=== PATIENT | female | born 1975 | race Caucasian/White ===

== ENCOUNTER 2018-01-20 19:01 | Observation (INO) | payer OTHER ==
--- NOTE | 2018-01-20 19:24 | ED ---
General Adult HPI - General Chief complaint: Chest Pain Stated complaint: chest pain Time Seen by Provider: 01/20/18 19:08 Source: patient, family, RN notes reviewed Mode of arrival: ambulatory Limitations: no limitations - History of Present Illness Initial comments: 42-year-old female presents for evaluation of chest pain. Patient states that throughout the first part of the day she had intermittent palpitations, approximately 3 PM which is 4 hours prior to arrival she developed anterior chest pain. She described this as an ache. This was associated with dyspnea and diaphoresis. She also reports some mild nausea, no vomiting. No abdominal pain. Patient states pain initially began substernally, she did develop some upper mid back pain. This was dull and achy in nature. Denies any shoulder or jaw pain. Patient has past medical history of hypertension and diabetes. She is a nonsmoker. No history of coronary artery disease known. No known family history of coronary artery disease. Patient has no pain at the time my evaluation, she does report some palpitations. - Related Data Home Medications Medication Instructions Recorded Confirmed Lisinopril-Hctz 20-12.5 mg 1 tab PO BID 01/20/18 01/20/18 [Zestoretic 20-12.5] Multivitamins, Thera [Multivitamin 1 tab PO DAILY 01/20/18 01/20/18 (formulary)] glipiZIDE [Glucotrol] 10 mg PO BID 01/20/18 01/20/18 Allergies Allergy/AdvReac Type Severity Reaction Status Date / Time No Known Allergies Allergy Verified 01/20/18 19:47 Review of Systems ROS Statement: Those systems with pertinent positive or pertinent negative responses have been documented in the HPI. ROS Other: All systems not noted in ROS Statement are negative. Past Medical History Past Medical History: Diabetes Mellitus, Hypertension History of Any Multi-Drug Resistant Organisms: None Reported Past Surgical History: Breast Surgery, Section, Orthopedic Surgery, Tonsillectomy, Tubal Ligation, Uterine Ablation Past Psychological History: No Psychological Hx Reported Smoking Status: Never smoker Past Alcohol Use History: None Reported Past Drug Use History: None Reported General Exam Limitations: no limitations General appearance: alert, in no apparent distress Head exam: Present: atraumatic, normocephalic Eye exam: Present: normal appearance, PERRL, EOMI ENT exam: Present: normal exam Neck exam: Present: normal inspection. Absent: tenderness, meningismus Respiratory exam: Present: normal lung sounds bilaterally. Absent: respiratory distress, wheezes, rales Cardiovascular Exam: Present: regular rate, normal rhythm, normal heart sounds, other GI/Abdominal exam: Present: soft. Absent: distended, tenderness Extremities exam: Present: normal inspection, normal capillary refill. Absent: pedal edema, calf tenderness Neurological exam: Present: alert, oriented X3, CN II-XII intact. Absent: motor sensory deficit Psychiatric exam: Present: normal affect, normal mood Skin exam: Present: warm, dry, intact. Absent: cyanosis, diaphoretic Course Vital Signs 01/20/18 19:09 Temperature 98.4 F Pulse Rate 100 Respiratory 18 Rate Blood Pressure 174/86 O2 Sat by Pulse 98 Oximetry EKG Findings - EKG Comments: EKG Findings:: EKG: Normal sinus rhythm, ventricular rate 91, [place] interval 156, QRS duration 86, QTC 440, no ST segment elevation or depression Medical Decision Making - Medical Decision Making 42-year-old female with history of hypertension and diabetes. Patient's history is concerning, her pain is somewhat atypical. EKG nonischemic. Initial workup includes normal white blood cell count, stable hemoglobin, negative d-dimer, glucose is elevated, patient does have history diabetes. Troponin negative. Chest x-ray clear. Patient will be admitted for serial cardiac enzymes and cardiology consult. - Lab Data Result diagrams: 01/20/18 19:25 01/20/18 19:25 Lab Results 01/20/18 01/20/18 01/20/18 Range/Units 19:25 19:25 19:25 WBC 10.3 (3.8-10.6) k/uL RBC 4.80 (3.80-5.40) m/uL Hgb 13.4 (11.4-16.0) gm/dL Hct 38.2 (34.0-46.0) % MCV 79.7 L (80.0-100.0) fL MCH 28.0 (25.0-35.0) pg MCHC 35.1 (31.0-37.0) g/dL RDW 16.3 H (11.5-15.5) % Plt Count 310 (150-450) k/uL Neutrophils % 65 % Lymphocytes % 26 % Monocytes % 3 % Eosinophils % 3 % Basophils % 0 % Neutrophils # 6.7 (1.3-7.7) k/uL Lymphocytes # 2.7 (1.0-4.8) k/uL Monocytes # 0.3 (0-1.0) k/uL Eosinophils # 0.3 (0-0.7) k/uL Basophils # 0.0 (0-0.2) k/uL Poikilocytosis Slight Anisocytosis Slight PT (9.0-12.0) sec INR (<1.2) APTT (22.0-30.0) sec D-Dimer (<0.60) mg/L FEU Sodium 135 L (137-145) mmol/L Potassium 4.1 (3.5-5.1) mmol/L Chloride 93 L (98-107) mmol/L Carbon Dioxide 27 (22-30) mmol/L Anion Gap 15 mmol/L BUN 14 (7-17) mg/dL Creatinine 0.50 L (0.52-1.04) mg/dL Est GFR (CKD-EPI)AfAm >90 (>60 ml/min/1.73 sqM) Est GFR (CKD-EPI)NonAf >90 (>60 ml/min/1.73 sqM) Glucose 288 H (74-99) mg/dL Calcium 9.8 (8.4-10.2) mg/dL Magnesium 1.7 (1.6-2.3) mg/dL Total Bilirubin 0.4 (0.2-1.3) mg/dL AST 19 (14-36) U/L ALT 30 (9-52) U/L Alkaline Phosphatase 101 (38-126) U/L Total Creatine Kinase 35 (30-135) U/L CK-MB (CK-2) 0.3 (0.0-2.4) ng/mL CK-MB (CK-2) Rel Index 0.9 Troponin I <0.012 (0.000-0.034) ng/mL NT-Pro-B Natriuret Pep pg/mL Total Protein 7.1 (6.3-8.2) g/dL Albumin 4.2 (3.5-5.0) g/dL Lipase 64 (23-300) U/L 01/20/18 01/20/18 Range/Units 19:25 19:25 WBC (3.8-10.6) k/uL RBC (3.80-5.40) m/uL Hgb (11.4-16.0) gm/dL Hct (34.0-46.0) % MCV (80.0-100.0) fL MCH (25.0-35.0) pg MCHC (31.0-37.0) g/dL RDW (11.5-15.5) % Plt Count (150-450) k/uL Neutrophils % % Lymphocytes % % Monocytes % % Eosinophils % % Basophils % % Neutrophils # (1.3-7.7) k/uL Lymphocytes # (1.0-4.8) k/uL Monocytes # (0-1.0) k/uL Eosinophils # (0-0.7) k/uL Basophils # (0-0.2) k/uL Poikilocytosis Anisocytosis PT 9.7 (9.0-12.0) sec INR 1.0 (<1.2) APTT 20.7 L (22.0-30.0) sec D-Dimer <0.17 (<0.60) mg/L FEU Sodium (137-145) mmol/L Potassium (3.5-5.1) mmol/L Chloride (98-107) mmol/L Carbon Dioxide (22-30) mmol/L Anion Gap mmol/L BUN (7-17) mg/dL Creatinine (0.52-1.04) mg/dL Est GFR (CKD-EPI)AfAm (>60 ml/min/1.73 sqM) Est GFR (CKD-EPI)NonAf (>60 ml/min/1.73 sqM) Glucose (74-99) mg/dL Calcium (8.4-10.2) mg/dL Magnesium (1.6-2.3) mg/dL Total Bilirubin (0.2-1.3) mg/dL AST (14-36) U/L ALT (9-52) U/L Alkaline Phosphatase (38-126) U/L Total Creatine Kinase (30-135) U/L CK-MB (CK-2) (0.0-2.4) ng/mL CK-MB (CK-2) Rel Index Troponin I (0.000-0.034) ng/mL NT-Pro-B Natriuret Pep <11 pg/mL Total Protein (6.3-8.2) g/dL Albumin (3.5-5.0) g/dL Lipase (23-300) U/L Disposition Clinical Impression: Chest pain Disposition: ADMITTED IP TO THIS HOSP Condition: Stable Referrals: Annamaria Lackey MD [Primary Care Provider] - 1-2 days Decision to Admit Reason: Admit from EC Decision Date: 01/20/18 Decision Time: 21:10
[2018-01-20 19:47] LABS: Anisocytosis Slight; Basophils % (A) 0 %; Eosinophils # (A) 0.3 k/uL (0-0.7); Eosinophils % (A) 3 %; HCT 38.2 % (34.0-46.0); HGB 13.4 gm/dL (11.4-16.0); Lymphocytes # (A) 2.7 k/uL (1.0-4.8); Lymphocytes % (A) 26 %; MCHC 35.1 g/dL (31.0-37.0); MCV 79.7 fL (80.0-100.0); Mean Platelet Volume 6.8; Monocytes # (A) 0.3 k/uL (0-1.0); Monocytes % (A) 3 %; Neutrophils # (A) 6.7 k/uL (1.3-7.7); Neutrophils % (A) 65 %; Platelet Count 310 k/uL (150-450); Poikilocytosis Slight; RDW 16.3 % (11.5-15.5); WBC 10.3 k/uL (3.8-10.6)
--- NOTE | 2018-01-20 19:55 | XR ---
EXAMINATION TYPE: XR chest 2V DATE OF EXAM: 01/20/2018 COMPARISON: NONE HISTORY: Chest pain TECHNIQUE: Frontal and lateral views of the chest are obtained. FINDINGS: Heart and mediastinum are normal. Lungs are clear of consolidation. There is no heart fail ure. There are chest leads. Costophrenic angles are clear. IMPRESSION: Normal chest
[2018-01-20 20:05] LABS: ALT 30 U/L (9-52); AST 19 U/L (14-36); Albumin 4.2 g/dL (3.5-5.0); Alkaline Phosphatase 101 U/L (38-126); Anion Gap 15 mmol/L; Blood Urea Nitrogen 14 mg/dL (7-17); Calcium 9.8 mg/dL (8.4-10.2); Carbon Dioxide 27 mmol/L (22-30); Chloride 93 mmol/L (98-107); Glucose 288 mg/dL (74-99); Lipase 64 U/L (23-300); Magnesium 1.7 mg/dL (1.6-2.3); Potassium 4.1 mmol/L (3.5-5.1); Sodium 135 mmol/L (137-145); Total Bilirubin 0.4 mg/dL (0.2-1.3); Total Protein 7.1 g/dL (6.3-8.2)
[2018-01-20 20:15] LABS: D-Dimer <0.17 mg/L FEU (<0.60); Prothrombin Time 9.7 sec (9.0-12.0)
[2018-01-20 20:16] LABS: Creatine Kinase 35 U/L (30-135)
[2018-01-20 20:19] LABS: Partial Thromboplastin Time 20.7 sec (22.0-30.0)
[2018-01-20 20:28] LABS: Creatine Kinase MB 0.3 ng/mL (0.0-2.4); Troponin I <0.012 ng/mL (0.000-0.034)
[2018-01-20] MEDS ORDERED: NALOXONE 0.4 MG/ML 1 ML VIAL IV PRN (21:06)
[2018-01-20] MEDS ORDERED: ASPIRIN 325 MG TAB PO STA (21:08)
[2018-01-20] MEDS: LISINOPRIL-HCTZ 20-12.5 MG 1 EACH TAB PO SCH (23:59)
[2018-01-20] MEDS: glipiZIDE 10 MG TAB PO SCH (23:59)
[2018-01-21 01:50] LABS: Creatine Kinase 29 U/L (30-135)
[2018-01-21 02:03] LABS: Creatine Kinase MB 0.3 ng/mL (0.0-2.4); Troponin I <0.012 ng/mL (0.000-0.034)
[2018-01-21 04:23] VITALS: RESP 18
[2018-01-21] MEDS ORDERED: glipiZIDE 10 MG TAB PO SCH (07:30)
[2018-01-21 07:31] LABS: Glucose,Whole Blood 261 mg/dL (75-99)
[2018-01-21] MEDS ORDERED: SODIUM CHLORIDE 0.9% 1,000 ML IV SCH (08:15)
[2018-01-21 08:41] LABS: Creatine Kinase 29 U/L (30-135)
[2018-01-21 08:51] LABS: Creatine Kinase MB 0.3 ng/mL (0.0-2.4); Troponin I <0.012 ng/mL (0.000-0.034)
[2018-01-21] MEDS ORDERED: LISINOPRIL-HCTZ 20-12.5 MG 1 EACH TAB PO SCH (09:00)
[2018-01-21] MEDS: LISINOPRIL-HCTZ 20-12.5 MG 1 EACH TAB PO SCH (11:19)
[2018-01-21] MEDS: glipiZIDE 10 MG TAB PO SCH (11:19)
[2018-01-21 11:27] LABS: Glucose,Whole Blood 272 mg/dL (75-99)
[2018-01-21 11:52] VITALS: BP 181/98; PULSE 104; TEMP 98.7
--- NOTE | 2018-01-21 12:36 | ECHOS ---
STRESS ECHOCARDIOGRAM DATE OF SERVICE: 01/21/2018 INDICATIONS: Chest pain. MEDICATIONS: BASELINE HEART RATE: 90 BASELINE BLOOD PRESSURE: 167/85 MAXIMUM HEART RATE: 160 MAXIMUM BLOOD PRESSURE: 218/101 85% MPHR: 151 100% MPHR: 178 METS: 6.4 MAXIMUM STAGE REACHED: I TOTAL EXERCISE TIME: 4 minutes 45 seconds CLINICAL INFORMATION: Baseline EKG revealed normal sinus rhythm without significant ST-T changes. Patient walked on standard Enio protocol for 4 minutes 45 seconds, achieved a maximal heart rate of 160 beats per minute, which is more than 85% of predicted maximal. She developed fatigue and shortness of breath but did not have any angina or arrhythmia. EKG did not reveal any ST-segment changes to indicate ischemia. Isolated PVCs are noted. By EKG criteria, this is a negative stress test with limited exercise capacity. Baseline echo images revealed normal wall motion and wall thickening of all segments. At peak exercise, there was good augmentation of left ventricular wall motion and wall thickening of all segments suggesting that there is no evidence of stress-induced ischemia on this study. IMPRESSION: 1. By EKG criteria, this is a negative stress test with limited exercise capacity with rare PVCs, but no ischemic changes or angina. 2. Normal stress echocardiogram. MMODL / IJN: [id number] /
--- NOTE | 2018-01-21 12:39 | ECHOF ---
Referral Reason:atypical chest pain MEASUREMENTS -------- HEIGHT: 160.0 cm WEIGHT: 115.7 kg BP: 167/85 RVIDd: 3.3 cm (< 3.3) IVSd: 1.1 cm (0.6 - 1.1) LVIDd: 4.7 cm (3.9 - 5.3) LVPWd: 1.1 cm (0.6 - 1.1) IVSs: 1.6 cm LVIDs: 2.7 cm LVPWs: 1.7 cm LAESV Index (A-L): 18.13 ml/m Ao Diam: 3.1 cm (2.0 - 3.7) AV Cusp: 1.8 cm (1.5 - 2.6) LA Diam: 2.7 cm (2.7 - 3.8) EPSS: 0.5 cm MV E Bruce: 0.80 m/s MV DecT: 276 ms MV A Bruce: 0.83 m/s MV E/A Ratio: 0.96 RAP: 5.00 mmHg RVSP: 12.17 mmHg MV EF SLOPE: 81.49 mm/s (70 - 150) MV EXCURSION: 1.44 cm (> 18.000) FINDINGS -------- Sinus rhythm. This was a technically adequate study. The left ventricular size is normal. There is borderline concentric left ventricular hypertrophy. Overall left ventricular systolic function is normal with, an EF between 55 - 60 %. The right ventricle is mildly enlarged. Normal LA size by volume 22+/-6 ml/m2. The right atrium is normal in size. The aortic valve is trileaflet, and appears structurally normal. No aortic stenosis or regurgitation. The mitral valve is normal. There is trace to mild mitral regurgitation. Trace tricuspid regurgitation present. Right ventricular systolic pressure is normal at < 35 mmHg. There is no evidence of pulmonary hypertension. The pulmonic valve was not well visualized. The aortic root size is normal. IVC Not well visulized. The pericardium is normal. There is no pericardial effusion. CONCLUSIONS -------- 1. Sinus rhythm. 2. This was a technically adequate study. 3. The left ventricular size is normal. 4. There is borderline concentric left ventricular hypertrophy. 5. Overall left ventricular systolic function is normal with, an EF between 55 - 60 %. 6. The right ventricle is mildly enlarged. 7. Normal LA size by volume 22+/-6 ml/m2. 8. The aortic valve is trileaflet, and appears structurally normal. No aortic stenosis or regurgitati on. 9. There is trace to mild mitral regurgitation. 10. Trace tricuspid regurgitation present. 11. Right ventricular systolic pressure is normal at < 35 mmHg. 12. There is no evidence of pulmonary hypertension. 13. The pulmonic valve was not well visualized. 14. The aortic root size is normal. 15. IVC Not well visulized. 16. There is no pericardial effusion. CORN POPPER: Sachin Valles RDCS
--- NOTE | 2018-01-21 14:03 | HP ---
HISTORY AND PHYSICAL DATE OF ADMISSION: 01/20/2018 PRESENT COMPLAINT: Palpitation. HISTORY OF PRESENTING COMPLAINT: A very pleasant 42-year-old patient of Dr. Annamaria Lackey. Chronic stable medical conditions include asthma, diabetes, hypertension. Yesterday in the morning she just had some palpitations and decided to just let it go. Had a good lunch, still was not feeling right and decided to go and take a walk in the gym. Did 1 round, continued to feel unwell and more palpitations and decided to come in here. Patient normally has a cup of coffee in the morning. No excessive caffeine intake. No cardiac history. EKG showed sinus rhythm presentation. Patient is rather active otherwise. Denies any use of recreational drugs. REVIEW OF SYSTEMS: CONSTITUTIONAL: None. HEENT none. RESPIRATORY: None. CARDIOVASCULAR: As above. GASTROINTESTINAL: None. GENITOURINARY: None. MUSCULOSKELETAL: None. DERMATOLOGICAL: None. HEMATOLOGIC: None. LYMPHATIC: None. PSYCHIATRY: None. NEUROLOGICAL: None. PAST MEDICAL HISTORY: Asthma, diabetes mellitus type 2, hypertension. PAST SURGICAL HISTORY: Breast surgery, , cholecystectomy, tonsillectomy, tubal ligation, uterine ablation, 2 wrist surgeries, 2 removed. SOCIAL HISTORY: Does not smoke or drink alcohol. Lives with her fiance. Works at [employer]. FAMILY HISTORY: Asthma and alcohol. HOME MEDICATIONS: 1. Glucotrol 10 mg b.i.d. 2. Multivitamin 1 tablet p.o. daily. 3. Zestoretic 20/12.5 one tablet p.o. b.i.d. ALLERGIES: None. PHYSICAL EXAMINATION: Temperature 97.9, pulse 83, respiration 18, blood pressure 123/81, pulse ox 95% on room appearance: GENERAL APPEARANCE: Well built, BMI 45.2, lying in bed, comfortable. EYES: Pupils equal, conjunctivae normal. HEENT: External appearance of ears and nose normal. Oral cavity normal. NECK: JVD not raised. Mass not palpable. Respiratory effort normal. LUNGS: Fair entry. CARDIOVASCULAR: First and second sounds are normal. No edema. ABDOMEN: Soft, nontender. Liver and spleen not palpable. LYMPHATIC: No lymph node palpable. PSYCHIATRY: Alert and oriented x3. Mood and affect normal. NEUROLOGICAL: Pupils equal, cranial nerves grossly intact. Power and sensation grossly intact. INVESTIGATIONS: White count 10.3, hemoglobin 13.4, potassium 4.1, BUN 14, creatinine 0.50. Accu-Cheks noted. Troponin times 3 negative. EKG normal sinus rhythm. ASSESSMENT: 1. This patient presented with episodes of palpitation, found to have sinus rhythm, occasional premature ventricular contractions. Patient's cardiac risk factors include diabetes, hypertension, and obesity. 2. Intermittent asthma controlled. 3. Diabetes mellitus type 2 on oral hypoglycemic. 4. Essential hypertension. 5. Morbid obesity, body mass index of 45.2. PLAN: Home medications are resumed. Cardiology was consulted who ordered a stress test stress test. Care was discussed with the patient. Will have dietitian see the patient for weight loss measures. MMODL / IJN: [id number] /
[2018-01-21 14:16] LABS: Hemoglobin A1C 10.5 % (4.0-6.0)
--- NOTE | 2018-01-21 20:39 | CONS ---
CONSULTATION This is a 42-year-old obese lady who has been admitted to the hospital with an episode of what she describes as a discomfort in her chest. The pain appears to be kind of diffuse all over, but she focuses more on the left lateral aspect. She is obese and has type 2 diabetes mellitus and hypertensive cardiovascular disease. She is not very active physically. She is not a smoker. Denies any alcohol use. After arrival to the hospital, she has not had any further chest discomfort. She is actually resting comfortably at the time of my evaluation, and her troponin profile is normal. She also complained of some diaphoresis and shortness of breath when she had the episode, but these symptoms have also resolved at this time. Her coronary risk factors include obesity, hypertension, and type 2 diabetes mellitus. Patient has no family history of CAD. Does not smoke. ALLERGIES: None. MEDICATIONS: Include lisinopril hydrochlorothiazide 20/12.5 one tab daily, Glucotrol 10 mg b.i.d. and multivitamins. She is status post section, tubal ligation, uterine ablation and breast biopsy. EXAMINATION: Blood pressure is 130/80, pulse rate is 78 per minute. HEENT: Unremarkable. Fundus was not examined by me. NECK: Supple. There is no JVD. I do not hear a carotid bruit. Heart exam reveals S1, S2 heard normally. Distant heart sounds. Lungs are clear. Abdomen is distended, nontender. Lower extremities reveal diminished pulses. No edema. Central nervous system is normal. EKG revealed a sinus mechanism, no acute changes. LABORATORY DATA: Reveals unremarkable troponins. IMPRESSION: 1. Chest pain syndrome atypical but given patient's risk factors, cannot exclude coronary artery disease. Her troponins and D-dimer are normal. 2. Obesity. 3. Type 2 diabetes mellitus. RECOMMENDATIONS: I am recommending an echocardiogram and a stress echo and if these are normal, she can be discharged. I discussed with her regarding risk factor modification, weight reduction, dietary discretion and exercise issues. We will perform a stress echo today and if this is normal, she can then be discharged. Thank you very much for the consult. MMODL / IJN: [id number] /
--- NOTE | 2018-01-22 08:52 | DS ---
DISCHARGE SUMMARY DATE OF ADMISSION: 01/20/18 DATE OF DISCHARGE: January 21, 2018. FINAL DIAGNOSES: 1. Possible PVCs causing palpitation. 2. Intermittent asthma controlled. 3. Diabetes mellitus type 2 on oral hypoglycemics. 4. Essential hypertension. 5. Morbid obesity BMI 45.2. CONSULTATION: Dr. Mario Junior. HOSPITAL COURSE: This patient presented with some palpitations. 2D echo did not show any wall motion abnormality. Stress echocardiogram was unremarkable. Dr. Mario Junior okayed the patient to be discharged. EXAM: Lungs are clear. Cardiovascular 1st and 2nd sounds normal. Normal troponins were negative. DISCHARGE MEDICATIONS: 1. Zestoretic 20/12.5 one tab p.o. b.i.d. 2. Glucotrol 10 mg p.o. b.i.d. FOLLOW UP: With Dr. Mario Junior in 2 weeks. Follow up with Annamaria Lackey in 3 days. Copy to Annamaria Lackey. MMODL / IJN: [id number] /
== END 2018-01-21 14:50 | disposition home or self-care (01) ==
LOC: EC 19:01 → 3OBS 21:07
PROVIDERS: ADMIT Hospitalist; ATTEND Hospitalist
DX: R00.2 Palpitations (principal); R07.89 Other chest pain; I11.9 Hypertensive heart disease without heart failure; J45.20 Mild intermittent asthma, uncomplicated; E11.9 Type 2 diabetes mellitus without complications; M54.89 Other dorsalgia; Z68.42 Body mass index [BMI] 45.0-49.9, adult; E66.01 Morbid (severe) obesity due to excess calories; Z79.84 Long term (current) use of oral hypoglycemic drugs; Z79.899 Other long term (current) drug therapy; Z82.5 Family history of asthma and other chronic lower respiratory diseases; Z81.1 Family history of alcohol abuse and dependence
CPT/HCPCS: 99285 ×2; 96360; 96361; 36415; 93005; 93017; 93306; 93350; 85379; 83880; 80053; 82550 ×2; 82553 ×2; 83690; 83735; 84484 ×2; 85025; 85610; 85730; 83036; 71046; G0378 ×2

== ENCOUNTER 2018-11-25 09:02 | Emergency (ER) | payer OTHER ==
[2018-11-25 09:06] VITALS: RESP 16
[2018-11-25] MEDS ORDERED: ACET/COD 300 MG/30 MG STARTER PACK 6 TAB BTL PO STA (09:29)
[2018-11-25] MEDS ORDERED: KETOROLAC 60 MG/2 ML VIAL IM STA (09:29)
[2018-11-25] MEDS ORDERED: CYCLOBENZAPRINE 10MG STARTER 3 TAB BTL PO STA (09:29)
--- NOTE | 2018-11-25 09:34 | ED ---
Fall HPI - General Chief Complaint: Fall Stated Complaint: fall, back pain Time Seen by Provider: 11/25/18 09:08 Source: patient, RN notes reviewed, old records reviewed Mode of arrival: ambulatory - History of Present Illness Initial Comments: Patient is a 43-year-old female presents emergency Department with complaints of lower back pain after she fell down steps. Patient states that she fell down presently 3 steps but landed once on her lower back and buttocks. She has history of left-sided sciatica. She reports that this flared up the sciatic pain. Patient states that she has been taking Aleve since this morning. She fell around 7 AM. She denies any saddle anesthesias. Patient states that she has no abdominal pain chest pain. No head injury or loss of consciousness or neck pain. - Related Data Home Medications Medication Instructions Recorded Confirmed glipiZIDE [Glucotrol] 10 mg PO AC-BID 01/20/18 11/25/18 Lisinopril-Hctz 20-25 mg 1 tab PO DAILY 11/25/18 11/25/18 [Zestoretic 20-25] Previous Rx's Medication Instructions Recorded Acetaminophen with Codeine 1 tab PO Q6H PRN 3 Days #12 tab 11/25/18 [Tylenol w/codeine #3] Cyclobenzaprine [Flexeril] 10 mg PO TID #12 tab 11/25/18 Ibuprofen [Motrin] 600 mg PO Q6HR PRN #20 tab 11/25/18 Allergies Allergy/AdvReac Type Severity Reaction Status Date / Time No Known Allergies Allergy Verified 11/25/18 09:34 Review of Systems ROS Statement: Those systems with pertinent positive or pertinent negative responses have been documented in the HPI. ROS Other: All systems not noted in ROS Statement are negative. Past Medical History Past Medical History: Asthma, Diabetes Mellitus, Hypertension History of Any Multi-Drug Resistant Organisms: None Reported Past Surgical History: Breast Surgery, Section, Cholecystectomy, Orthopedic Surgery, Tonsillectomy, Tubal Ligation, Uterine Ablation Additional Past Surgical History / Comment(s): 2 lypomas removed, 2 c sec, 2 wrist surgeries Past Anesthesia/Blood Transfusion Reactions: No Reported Reaction Past Psychological History: No Psychological Hx Reported Smoking Status: Never smoker Past Alcohol Use History: None Reported Past Drug Use History: None Reported - Past Family History Mother Additional Family Medical History / Comment(s): ETOH Father Additional Family Medical History / Comment(s): ETOH Brother(s) Additional Family Medical History / Comment(s): DRUG ABUSE Son(s) Family Medical History: Asthma Daughter(s) Family Medical History: Asthma General Exam - General Exam Comments Initial Comments: Pleasant 43-year-old female. Alert and oriented. No acute distress. Limitations: no limitations General appearance: alert, in no apparent distress Head exam: Present: atraumatic, normocephalic, normal inspection Eye exam: Present: normal appearance, PERRL, EOMI. Absent: scleral icterus, conjunctival injection, periorbital swelling ENT exam: Present: normal exam, mucous membranes moist Respiratory exam: Present: normal lung sounds bilaterally Cardiovascular Exam: Present: regular rate, normal rhythm, normal heart sounds. Absent: systolic murmur, diastolic murmur, rubs, gallop, clicks GI/Abdominal exam: Present: soft, normal bowel sounds. Absent: distended, tenderness, guarding, rebound, rigid Extremities exam: Present: normal inspection, full ROM, normal capillary refill. Absent: tenderness, pedal edema, joint swelling, calf tenderness Back exam: Present: normal inspection, tenderness (lumbar and scaral tenderness) Neurological exam: Present: alert, oriented X3, CN II-XII intact Psychiatric exam: Present: normal affect, normal mood Skin exam: Present: warm, dry, intact, normal color. Absent: rash Course Vital Signs 11/25/18 09:04 Temperature 98.3 F Pulse Rate 92 Respiratory 16 Rate Blood Pressure 167/104 O2 Sat by Pulse 97 Oximetry Medical Decision Making - Medical Decision Making 43 old female presents ribs after slip and fall on ice. Patient complains of low back pain and tenderness. Lumbar spine and sacral and coccyx x-rays were completed. There are negative for any acute fracture. Patient does have evidence of degenerative disc disease. At this time patient's segmented plantar medicine muscle relaxers and short course of pain medicine. I discussed the Patient to follow up with offender employment specialist if symptoms continue to persist. Discussed strict return parameters. All questions answered. - Radiology Data Radiology results: report reviewed X-ray sacrum and coccyx show no acute fracture. The level degenerative disc disease and facet arthropathy. Disposition Clinical Impression: Fall, Acute back pain Disposition: HOME SELF-CARE Condition: Good Additional Instructions: Patient advised to follow-up with primary care physician. Patient should return to the emergency department if any alarming signs or symptoms occur. Prescriptions: Acetaminophen with Codeine [Tylenol w/codeine #3] 1 tab PO Q6H PRN 3 Days #12 tab PRN Reason: Pain Cyclobenzaprine [Flexeril] 10 mg PO TID #12 tab Ibuprofen [Motrin] 600 mg PO Q6HR PRN #20 tab PRN Reason: Pain Is patient prescribed a controlled substance at d/c from ED?: Yes When asked, does pt state using other controlled substances?: No If prescribed controlled substance>3 days was MAPS reviewed?: Prescribed <3 Days If opioid is for acute pain is fill amount 7 days or less?: Yes If Rx opioid, was Start Talking consent form obtained?: Yes Referrals: Annamaria Lackey MD [Primary Care Provider] - 1-2 days Time of Disposition: 10:32
--- NOTE | 2018-11-25 10:04 | XR ---
EXAM TYPE: LUMBAR SPINE X RAY SERIES COMPARISON: NONE HISTORY: Pain TECHNIQUE: 4 views are submitted. FINDINGS: Alignment is anatomic. The pedicles are intact. The transverse processes are intact. There is no s pondylolysis or spondylolisthesis. Surgical clips right upper quadrant. Hypertrophic and degenerativ e changes of the spine. Metallic density in the pelvis could be related to previous procedure. Multil evel facet arthropathy. IMPRESSION: 1. Multilevel degenerative disc disease and facet arthropathy.
--- NOTE | 2018-11-25 10:05 | XR ---
EXAMINATION TYPE: XR sacrum coccyx DATE OF EXAM: 11/25/2018 COMPARISON: NONE HISTORY: Pain Three views are submitted. Sacrum is intact. SI joints are symmetric. Coccyx appears to be intact. Visualized pelvic structures intact. Metallic densities within the pelvis likely related to previo us procedure. Degenerative change of facet arthropathy lower lumbar spine. IMPRESSION: 1. No acute fracture.
[2018-11-25 10:45] VITALS: BP 147/92; PULSE 89; TEMP 98
== END 2018-11-25 10:45 | disposition home or self-care (01) ==
LOC: EC 09:02
DX: M54.5 Low back pain (principal); M51.36 Other intervertebral disc degeneration, lumbar region; E11.9 Type 2 diabetes mellitus without complications; I10 Essential (primary) hypertension; Z90.49 Acquired absence of other specified parts of digestive tract; Z98.51 Tubal ligation status; Z98.890 Other specified postprocedural states; Z79.84 Long term (current) use of oral hypoglycemic drugs; Z79.899 Other long term (current) drug therapy; W00.1XXA Fall from stairs and steps due to ice and snow, initial encounter; Y92.89 Other specified places as the place of occurrence of the external cause
CPT/HCPCS: 72100; 72220; 96372; 99284

== ENCOUNTER 2019-09-14 16:07 | Emergency (ER) | payer OTHER ==
[2019-09-14] MEDS ORDERED: KETOROLAC 30 MG/ML 1 ML VIAL IVP STA (16:25)
[2019-09-14] MEDS ORDERED: SODIUM CHLORIDE 0.9% 1,000 ML IV STA (16:25)
--- NOTE | 2019-09-14 16:30 | ED ---
General Adult HPI - General Chief complaint: Back Pain/Injury Stated complaint: kidney stone Time Seen by Provider: 09/14/19 16:10 Source: patient, RN notes reviewed Mode of arrival: ambulatory Limitations: no limitations - History of Present Illness Initial comments: 44-year-old female presents emergency Department with chief complaint of right flank pain. Patient states started 2 days ago but worsened recently. Patient states that she's been working more and longer hours and states that she is unsure if she injured herself. Patient states that nothing makes pain feel better or worse. She did take Aleve yesterday with no relief. She denies any bowel bladder incontinence or retention. Denies any saddle anesthesias. No current diarrhea does complain of abdominal bloating mild dysuria denies any vaginal bleeding or vaginal discharge. - Related Data Home Medications Medication Instructions Recorded Confirmed glipiZIDE [Glucotrol] 10 mg PO AC-BID 01/20/18 11/25/18 Lisinopril-Hctz 20-25 mg 1 tab PO DAILY 11/25/18 11/25/18 [Zestoretic 20-25] Previous Rx's Medication Instructions Recorded Acetaminophen with Codeine 1 tab PO Q6H PRN 3 Days #12 tab 11/25/18 [Tylenol w/codeine #3] Cyclobenzaprine [Flexeril] 10 mg PO TID #12 tab 11/25/18 Ibuprofen [Motrin] 600 mg PO Q6HR PRN #20 tab 11/25/18 Amoxicillin/Potassium Clav 1 tab PO Q12HR #20 tab 09/14/19 [Augmentin 875-125 Tablet] Ibuprofen [Motrin] 600 mg PO Q8HR PRN #30 tab 09/14/19 Allergies Allergy/AdvReac Type Severity Reaction Status Date / Time No Known Allergies Allergy Verified 09/14/19 16:17 Review of Systems ROS Statement: Those systems with pertinent positive or pertinent negative responses have been documented in the HPI. ROS Other: All systems not noted in ROS Statement are negative. Past Medical History Past Medical History: Asthma, Diabetes Mellitus, Hypertension History of Any Multi-Drug Resistant Organisms: None Reported Past Surgical History: Breast Surgery, Section, Cholecystectomy, Orthopedic Surgery, Tonsillectomy, Tubal Ligation, Uterine Ablation Additional Past Surgical History / Comment(s): 2 lypomas removed, 2 c sec, 2 wrist surgeries Past Anesthesia/Blood Transfusion Reactions: No Reported Reaction Past Psychological History: No Psychological Hx Reported Smoking Status: Never smoker Past Alcohol Use History: None Reported Past Drug Use History: None Reported - Past Family History Mother Additional Family Medical History / Comment(s): ETOH Father Additional Family Medical History / Comment(s): ETOH Brother(s) Additional Family Medical History / Comment(s): DRUG ABUSE Son(s) Family Medical History: Asthma Daughter(s) Family Medical History: Asthma General Exam Limitations: no limitations General appearance: alert, in no apparent distress Head exam: Present: atraumatic, normocephalic, normal inspection Eye exam: Present: normal appearance, PERRL, EOMI. Absent: scleral icterus, conjunctival injection, periorbital swelling ENT exam: Present: normal exam, mucous membranes moist Neck exam: Present: normal inspection, full ROM. Absent: tenderness, meningismus, lymphadenopathy Respiratory exam: Present: normal lung sounds bilaterally. Absent: respiratory distress, wheezes, rales, rhonchi, stridor Cardiovascular Exam: Present: regular rate, normal rhythm, normal heart sounds. Absent: systolic murmur, diastolic murmur, rubs, gallop, clicks GI/Abdominal exam: Present: soft, normal bowel sounds. Absent: distended, tenderness, guarding, rebound, rigid Back exam: Present: full ROM, tenderness, CVA tenderness (R), paraspinal tenderness. Absent: CVA tenderness (L), vertebral tenderness Neurological exam: Present: alert, oriented X3, CN II-XII intact Skin exam: Present: warm, dry, intact, normal color. Absent: rash Course Vital Signs 09/14/19 16:15 Temperature 98.2 F Pulse Rate 90 Respiratory 16 Rate Blood Pressure 172/109 O2 Sat by Pulse 92 L Oximetry Medical Decision Making - Medical Decision Making CAT scan shows evidence of mesenteric adenitis, colitis and there is; that show mild hyperglycemia patient is a known diabetic. Urinalysis unremarkable patient has recently or mass in the left adrenal gland which is known to the patient she is scheduled follow-up. Patient also has a nonobstructing kidney stone on the right. Patient be discharged on antibiotics, pain control return parameters were discussed. - Lab Data Result diagrams: 09/14/19 16:44 09/14/19 16:44 Lab Results 09/14/19 09/14/19 09/14/19 Range/Units 16:44 16:44 16:44 WBC 10.4 (3.8-10.6) k/uL RBC 4.96 (3.80-5.40) m/uL Hgb 13.8 (11.4-16.0) gm/dL Hct 40.8 (34.0-46.0) % MCV 82.3 (80.0-100.0) fL MCH 27.7 (25.0-35.0) pg MCHC 33.7 (31.0-37.0) g/dL RDW 14.7 (11.5-15.5) % Plt Count 378 (150-450) k/uL Neutrophils % 69 % Lymphocytes % 22 % Monocytes % 4 % Eosinophils % 3 % Basophils % 2 % Neutrophils # 7.2 (1.3-7.7) k/uL Lymphocytes # 2.3 (1.0-4.8) k/uL Monocytes # 0.4 (0-1.0) k/uL Eosinophils # 0.3 (0-0.7) k/uL Basophils # 0.2 (0-0.2) k/uL Sodium 137 (137-145) mmol/L Potassium 3.9 (3.5-5.1) mmol/L Chloride 98 (98-107) mmol/L Carbon Dioxide 28 (22-30) mmol/L Anion Gap 11 mmol/L BUN 14 (7-17) mg/dL Creatinine 0.43 L (0.52-1.04) mg/dL Est GFR (CKD-EPI)AfAm >90 (>60 ml/min/1.73 sqM) Est GFR (CKD-EPI)NonAf >90 (>60 ml/min/1.73 sqM) Glucose 229 H (74-99) mg/dL Calcium 9.7 (8.4-10.2) mg/dL Total Bilirubin 0.5 (0.2-1.3) mg/dL AST 22 (14-36) U/L ALT 18 (9-52) U/L Alkaline Phosphatase 82 (38-126) U/L Total Protein 7.6 (6.3-8.2) g/dL Albumin 4.4 (3.5-5.0) g/dL Amylase <30 L (30-110) U/L Lipase 44 (23-300) U/L Urine Color Yellow Urine Appearance Clear (Clear) Urine pH 5.5 (5.0-8.0) Ur Specific [place] 1.019 (1.001-1.035) Urine Protein Negative (Negative) Urine Glucose (UA) 2+ H (Negative) Urine Ketones Negative (Negative) Urine Blood Negative (Negative) Urine Nitrite Negative (Negative) Urine Bilirubin Negative (Negative) Urine Urobilinogen <2.0 (<2.0) mg/dL Ur Leukocyte Esterase Negative (Negative) Disposition Clinical Impression: Colitis, Right sided abdominal pain, Mesenteric adenitis, Kidney calculus Disposition: HOME SELF-CARE Condition: Stable Instructions (If sedation given, give patient instructions): Colitis (ED) Additional Instructions: Please return to the Emergency Department if symptoms worsen or any other concerns. Prescriptions: Amoxicillin/Potassium Clav [Augmentin 875-125 Tablet] 1 tab PO Q12HR #20 tab Ibuprofen [Motrin] 600 mg PO Q8HR PRN #30 tab PRN Reason: Pain Is patient prescribed a controlled substance at d/c from ED?: No Referrals: Annamaria Lackey MD [Primary Care Provider] - 1-2 days Time of Disposition: 18:00
[2019-09-14 16:55] LABS: Basophils # (A) 0.2 k/uL (0-0.2); Basophils % (A) 2 %; Eosinophils # (A) 0.3 k/uL (0-0.7); Eosinophils % (A) 3 %; HCT 40.8 % (34.0-46.0); HGB 13.8 gm/dL (11.4-16.0); Lymphocytes # (A) 2.3 k/uL (1.0-4.8); Lymphocytes % (A) 22 %; MCH 27.7 pg (25.0-35.0); MCHC 33.7 g/dL (31.0-37.0); MCV 82.3 fL (80.0-100.0); Mean Platelet Volume 6.4; Monocytes # (A) 0.4 k/uL (0-1.0); Monocytes % (A) 4 %; Neutrophils # (A) 7.2 k/uL (1.3-7.7); Neutrophils % (A) 69 %; Platelet Count 378 k/uL (150-450); RBC 4.96 m/uL (3.80-5.40); RDW 14.7 % (11.5-15.5); WBC 10.4 k/uL (3.8-10.6)
[2019-09-14 16:56] LABS: Appearance,Urine Clear (Clear); Bilirubin,Urine Negative (Negative); Blood,Urine Negative (Negative); Color,Urine Yellow; Glucose,Urine (UA) 2+ (Negative); Ketones,Urine Negative (Negative); Leukocyte Esterase,Urine Negative (Negative); Nitrite,Urine Negative (Negative); PH, Urine 5.5 (5.0-8.0); Protein,Urine Negative (Negative); Specific Gravity,Urine 1.019 (1.001-1.035); Urobilinogen,Urine <2.0 mg/dL (<2.0)
[2019-09-14 17:03] LABS: ALT 18 U/L (9-52); AST 22 U/L (14-36); African American GFR (CKD) >90 (>60 ml/min/1.73 sqM); Albumin 4.4 g/dL (3.5-5.0); Alkaline Phosphatase 82 U/L (38-126); Amylase <30 U/L (30-110); Anion Gap 11 mmol/L; Blood Urea Nitrogen 14 mg/dL (7-17); Calcium 9.7 mg/dL (8.4-10.2); Carbon Dioxide 28 mmol/L (22-30); Chloride 98 mmol/L (98-107); Glucose 229 mg/dL (74-99); Non-African American GFR(CKD) >90 (>60 ml/min/1.73 sqM); Potassium 3.9 mmol/L (3.5-5.1); Sodium 137 mmol/L (137-145); Total Bilirubin 0.5 mg/dL (0.2-1.3); Total Protein 7.6 g/dL (6.3-8.2)
--- NOTE | 2019-09-14 17:41 | CT ---
EXAMINATION TYPE: CT abdomen pelvis w con DATE OF EXAM: 09/14/2019 COMPARISON: NONE HISTORY: 44-year-old female right-sided flank pain. Known adrenal mass Left side. TECHNIQUE: Contiguous axial scanning of the abdomen and pelvis following administration of 100 ml Iso kateryna 300 IV contrast. Delayed images through the kidneys and coronal/sagittal reconstructions perform ed. CT DLP: 2312.4 mGycm Automated exposure control for dose reduction was used. FINDINGS: Heart upper limits of normal size without pericardial effusion. Strandy atelectasis or scarring at th e right base. No pleural effusion. Liver enlarged measuring 22.4 cm. Suspect underlying fatty infiltration. No focal liver lesion or gisselle iary ductal dilatation. Portal venous system is patent. Cholecystectomy clips. 3.0 x 2.1 cm left adrenal nodule shows homogeneous low-density. Indeterminate attenuation (19 Hounsfi eld units) on postcontrast exam. Correlate for any known diagnosis. Right adrenal gland, left kidney, and pancreas appear within normal limits. Spleen enlarged at 15.3 cm. Punctate 2 mm nonobstructive right renal calculus. No hydronephrosis on either side. Mild generalized anasarca change. No dilated small bowel, free fluid, or free air. A few prominent retroperitoneal lymph nodes measure up to 7 mm. Additional borderline sized mesenteri c lymph nodes, most numerous in the right lower quadrant measuring up to 9 mm, for example, coronal i mage 51. Portions of the normal appendix are visualized. There may be mild circumference wall thickening along the ascending colon. Mild stool burden. No pericolic inflammatory change. Bladder is nondistended. Uterus anteverted. Bilaterally Essures are present. Both ovaries are visuali zed. No abnormal fluid collection in the pelvis or pelvic lymphadenopathy. Bones: Facet arthropathy mid to lower lumbar spine. Trace grade 1 retrolisthesis at L3-L4. Degenerati ve disc disease L5-S1. IMPRESSION: 1. PUNCTATE 2 MM NONOBSTRUCTIVE RIGHT RENAL CALCULUS. NO HYDRONEPHROSIS. 2. SCATTERED PROMINENT MESENTERIC LYMPH NODES MEASURING UP TO 9 MM IN THE RIGHT LOWER QUADRANT. FINDI NGS PROBABLY REACTIVE/POST INFLAMMATORY. CORRELATE FOR POSSIBLE MESENTERIC ADENITIS. 3. THERE MAY BE MILD CIRCUMFERENTIAL WALL THICKENING ALONG THE ASCENDING COLON WELL THAT COULD REP RESENT A CONCURRENT MILD COLITIS. 4. HEPATOSPLENOMEGALY (LIVER 22.4 CM AND SPLEEN 15.3 CM). UNDERLYING HEPATIC STEATOSIS. 5. LEFT ADRENAL MASS/NODULE MEASURES 3.0 CM. CORRELATE FOR ANY KNOWN DIAGNOSIS.
[2019-09-14] MEDS ORDERED: ACET/COD 300 MG/30 MG STARTER PACK 6 TAB BTL PO STA (18:01)
[2019-09-14 18:20] VITALS: BP 159/87; PULSE 88; RESP 18; TEMP 98
== END 2019-09-14 18:18 | disposition home or self-care (01) ==
LOC: EC 16:07
DX: N20.0 Calculus of kidney (principal); I88.0 Nonspecific mesenteric lymphadenitis; K52.9 Noninfective gastroenteritis and colitis, unspecified; E11.65 Type 2 diabetes mellitus with hyperglycemia; I10 Essential (primary) hypertension; Z79.84 Long term (current) use of oral hypoglycemic drugs; Z79.899 Other long term (current) drug therapy; Z90.49 Acquired absence of other specified parts of digestive tract
CPT/HCPCS: 36415; 80053; 82150; 83690; 85025; 81003; 74177; 99284; 96374; 96361 ×2; J1885; Q9967

== ENCOUNTER → 2020-01-07 | Outpatient (CLI) | payer OTHER ==
[2020-01-07 17:47] LABS: African American GFR (CKD) 128.5 (60.0-200.0); Albumin 4.4 g/dL (3.80-4.90); Albumin/Globulin Ratio 1.91 (1.60-3.17); Anion Gap 8.1 mmol/L (4.00-12.00); BUN/Creat Ratio 31.67 Ratio (12.00-20.00); Calcium 9.3 mg/dL (8.7-10.3); Carbon Dioxide 29.9 mmol/L (21.6-31.8); Chol/HDL Ratio 5.37; Globulin 2.3 g/dL (1.6-3.3); Non-African American GFR(CKD) 110.9 (60.0-200.0); Potassium 4.5 mmol/L (3.5-5.5); Total Bilirubin 0.4 mg/dL (0.2-1.2); Total Protein 6.7 g/dL (6.2-8.2)
[2020-01-07 19:02] LABS: Hemoglobin A1C 8.3 % (4.0-6.0)
== END | disposition home or self-care (01) ==
LOC: LABWHC1 08:38
DX: E78.5 Hyperlipidemia, unspecified (principal); E11.65 Type 2 diabetes mellitus with hyperglycemia; I10 Essential (primary) hypertension; R19.09 Other intra-abdominal and pelvic swelling, mass and lump
CPT/HCPCS: 36415; 80053; 80061; 82384; 82530; 82626; 83036; 83721; 83835

== ENCOUNTER 2020-08-10 07:59 | Emergency (ER) | payer OTHER ==
[2020-08-10 08:08] VITALS: PULSE 81; TEMP 98
[2020-08-10] MEDS ORDERED: diphenhydrAMINE 50 MG/ML 1 ML VIAL IVP STA (08:16)
[2020-08-10] MEDS ORDERED: METOCLOPRAMIDE 5 MG/ML 2 ML VIAL IVP STA (08:16)
[2020-08-10] MEDS ORDERED: SODIUM CHLORIDE 0.9% 500 ML 500 ML IV STA (08:16)
[2020-08-10] MEDS ORDERED: SODIUM CHLORIDE 0.9% 1,000 ML IV STA (08:16)
--- NOTE | 2020-08-10 08:19 | ED ---
General Adult HPI - General Chief complaint: Fall Stated complaint: vomiting,nausea,fall abd injury 2days ago Time Seen by Provider: 08/10/20 08:10 Source: patient, RN notes reviewed Mode of arrival: ambulatory Limitations: no limitations - History of Present Illness Initial comments: This is a 45-year-old female presents emergency Department chief complaint of nausea vomiting abdominal discomfort. Patient states that she fell 2 days ago going down her steps of her deck. Patient states that she had some abdominal pain and felt okay. Patient states yesterday she developed a systemic, nausea and vomiting. She states she still very nauseated. She has chronic nausea from her Korlym. 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 Patient states she's had prior cholecystectomy, lipoma removal and section. Patient states that she has some mid to lower abdominal pain no dysuria no diarrhea no constipation. - Related Data Home Medications Medication Instructions Recorded Confirmed Atorvastatin Calcium [Lipitor] 40 mg PO DAILY 08/10/20 08/10/20 Insulin Glargine,Hum.rec.anlog 36 unit SQ DAILY 08/10/20 08/10/20 [Basaglar Kwikpen U-100] Korlym 300mg Tabs 1,200 mg PO DAILY 08/10/20 08/10/20 Lisinopril-Hctz 20-12.5 mg 1 tab PO BID 08/10/20 08/10/20 [Zestoretic 20-12.5] Naproxen Sodium [Aleve] 440 mg PO DAILY PRN 08/10/20 08/10/20 Omeprazole 20 mg PO DAILY 08/10/20 08/10/20 Ondansetron HCl [Zofran] 4 mg PO Q6HR PRN 08/10/20 08/10/20 Pioglitazone HCl 15 mg PO DAILY 08/10/20 08/10/20 Polyethylene Glycol 3350 [Miralax] 17 gm PO DAILY PRN 08/10/20 08/10/20 Semaglutide [Ozempic] 1 mg SQ MO 08/10/20 08/10/20 Spironolactone 50 mg PO DAILY 08/10/20 08/10/20 Previous Rx's Medication Instructions Recorded Acetaminophen with Codeine 1 tab PO Q6H PRN 3 Days #12 tab 11/25/18 [Tylenol w/codeine #3] Allergies Allergy/AdvReac Type Severity Reaction Status Date / Time No Known Allergies Allergy Verified 08/10/20 09:35 Review of Systems ROS Statement: Those systems with pertinent positive or pertinent negative responses have been documented in the HPI. ROS Other: All systems not noted in ROS Statement are negative. Past Medical History Past Medical History: Asthma, Diabetes Mellitus, Hypertension Additional Past Medical History / Comment(s): cushings History of Any Multi-Drug Resistant Organisms: None Reported Past Surgical History: Breast Surgery, Section, Cholecystectomy, Orth opedic Surgery, Tonsillectomy, Tubal Ligation, Uterine Ablation Additional Past Surgical History / Comment(s): 2 lypomas removed, 2 c sec, 2 wrist surgeries Past Anesthesia/Blood Transfusion Reactions: No Reported Reaction Past Psychological History: No Psychological Hx Reported Smoking Status: Never smoker Past Alcohol Use History: None Reported Past Drug Use History: None Reported - Past Family History Mother Additional Family Medical History / Comment(s): ETOH Father Additional Family Medical History / Comment(s): ETOH Brother(s) Additional Family Medical History / Comment(s): DRUG ABUSE Son(s) Family Medical History: Asthma Daughter(s) Family Medical History: Asthma General Exam Limitations: no limitations General appearance: alert, in no apparent distress Head exam: Present: atraumatic, normocephalic, normal inspection Eye exam: Present: normal appearance, PERRL, EOMI. Absent: scleral icterus, conjunctival injection, periorbital swelling ENT exam: Present: normal exam, normal oropharynx, mucous membranes moist Neck exam: Present: normal inspection, full ROM. Absent: tenderness, men ingismus, lymphadenopathy Respiratory exam: Present: normal lung sounds bilaterally. Absent: respiratory distress, wheezes, rales, rhonchi, stridor Cardiovascular Exam: Present: regular rate, normal rhythm, normal heart sounds. Absent: systolic murmur, diastolic murmur, rubs, gallop, clicks GI/Abdominal exam: Present: soft, tenderness (Mild to moderate mid abdominal tenderness), normal bowel sounds. Absent: distended, guarding, rebound, rigid Back exam: Absent: CVA tenderness (R), CVA tenderness (L) Neurological exam: Present: alert, oriented X3 Skin exam: Present: warm, dry, intact, normal color. Absent: rash Course Vital Signs 08/10/20 08:03 Temperature 98.0 F Pulse Rate 81 Respiratory 16 Rate Blood Pressure 170/102 O2 Sat by Pulse 95 Oximetry EKG Findings - EKG Comments: EKG Findings:: EKG for a: 36 sinus rhythm rate of 86 NM 156 QRS 100 QT/QTC 246/294 Medical Decision Making - Medical Decision Making 45 for abdominal pain nausea vomiting. Patient labs do show mild hyperkalemia was replaced 40 mEq kdur. Patient is improved after Benadryl and Reglan. Patient was hydrated. Patient be discharged in stable condition. Patient CT does show evidence of renal mass in which she states she knows about and has been evaluated for this. Patient we discharged stable condition return parameters were discussed. - Lab Data Result diagrams: 08/10/20 08:22 08/10/20 08:22 Lab Results 08/10/20 08/10/20 08/10/20 Range/Units 08:22 08:22 08:22 WBC 9.2 (3.8-10.6) k/uL RBC 4.33 (3.80-5.40) m/uL Hgb 12.2 (11.4-16.0) gm/dL Hct 37.0 (34.0-46.0) % MCV 85.4 (80.0-100.0) fL MCH 28.1 (25.0-35.0) pg MCHC 32.9 (31.0-37.0) g/dL RDW 15.7 H (11.5-15.5) % Plt Count 386 (150-450) k/uL Neutrophils % 71 % Lymphocytes % 20 % Monocytes % 4 % Eosinophils % 3 % Basophils % 0 % Neutrophils # 6.6 (1.3-7.7) k/uL Lymphocytes # 1.8 (1.0-4.8) k/uL Monocytes # 0.4 (0-1.0) k/uL Eosinophils # 0.3 (0-0.7) k/uL Basophils # 0.0 (0-0.2) k/uL Poikilocytosis Slight Sodium 141 (137-145) mmol/L Potassium 3.1 L (3.5-5.1) mmol/L Chloride 98 (98-107) mmol/L Carbon Dioxide 35 H (22-30) mmol/L Anion Gap 8 mmol/L BUN 12 (7-17) mg/dL Creatinine 0.62 (0.52-1.04) mg/dL Est GFR (CKD-EPI)AfAm >90 (>60 ml/min/1.73 sqM) Est GFR (CKD-EPI)NonAf >90 (>60 ml/min/1.73 sqM) Glucose 131 H (74-99) mg/dL Plasma Lactic Acid Damon (0.7-2.0) mmol/L Calcium 8.8 (8.4-10.2) mg/dL Total Bilirubin 0.9 (0.2-1.3) mg/dL AST 22 (14-36) U/L ALT 17 (4-34) U/L Alkaline Phosphatase 112 (38-126) U/L Troponin I (0.000-0.034) ng/mL Total Protein 6.5 (6.3-8.2) g/dL Albumin 3.8 (3.5-5.0) g/dL Lipase 63 (23-300) U/L Urine Color Yellow Urine Appearance Clear (Clear) Urine pH 6.0 (5.0-8.0) Ur Specific [place] 1.011 (1.001-1.035) Urine Protein Negative (Negative) Urine Glucose (UA) Negative (Negative) Urine Ketones Negative (Negative) Urine Blood Negative (Negative) Urine Nitrite Negative (Negative) Urine Bilirubin Negative (Negative) Urine Urobilinogen 6.0 (<2.0) mg/dL Ur Leukocyte Esterase Negative (Negative) 08/10/20 08/10/20 Range/Units 08:22 08:22 WBC (3.8-10.6) k/uL RBC (3.80-5.40) m/uL Hgb (11.4-16.0) gm/dL Hct (34.0-46.0) % MCV (80.0-100.0) fL MCH (25.0-35.0) pg MCHC (31.0-37.0) g/dL RDW (11.5-15.5) % Plt Count (150-450) k/uL Neutrophils % % Lymphocytes % % Monocytes % % Eosinophils % % Basophils % % Neutrophils # (1.3-7.7) k/uL Lymphocytes # (1.0-4.8) k/uL Monocytes # (0-1.0) k/uL Eosinophils # (0-0.7) k/uL Basophils # (0-0.2) k/uL Poikilocytosis Sodium (137-145) mmol/L Potassium (3.5-5.1) mmol/L Chloride (98-107) mmol/L Carbon Dioxide (22-30) mmol/L Anion Gap mmol/L BUN (7-17) mg/dL Creatinine (0.52-1.04) mg/dL Est GFR (CKD-EPI)AfAm (>60 ml/min/1.73 sqM) Est GFR (CKD-EPI)NonAf (>60 ml/min/1.73 sqM) Glucose (74-99) mg/dL Plasma Lactic Acid Damon 0.9 (0.7-2.0) mmol/L Calcium (8.4-10.2) mg/dL Total Bilirubin (0.2-1.3) mg/dL AST (14-36) U/L ALT (4-34) U/L Alkaline Phosphatase (38-126) U/L Troponin I <0.012 (0.000-0.034) ng/mL Total Protein (6.3-8.2) g/dL Albumin (3.5-5.0) g/dL Lipase (23-300) U/L Urine Color Urine Appearance (Clear) Urine pH (5.0-8.0) Ur Specific [place] (1.001-1.035) Urine Protein (Negative) Urine Glucose (UA) (Negative) Urine Ketones (Negative) Urine Blood (Negative) Urine Nitrite (Negative) Urine Bilirubin (Negative) Urine Urobilinogen (<2.0) mg/dL Ur Leukocyte Esterase (Negative) Disposition Clinical Impression: Fall, Abdominal pain, Nausea & vomiting Disposition: HOME SELF-CARE Condition: Stable Instructions (If sedation given, give patient instructions): Abdominal Pain (ED) Additional Instructions: Please return to the Emergency Department if symptoms worsen or any other concerns. Is patient prescribed a controlled substance at d/c from ED?: No Referrals: Annamaria Lackey MD [Primary Care Provider] - 1-2 days Time of Disposition: 09:50
[2020-08-10] MEDS ORDERED: ENALAPRILAT 1.25 MG/ML 1 ML VIAL IVP STA (08:20)
[2020-08-10 08:41] LABS: Appearance,Urine Clear (Clear); Bilirubin,Urine Negative (Negative); Blood,Urine Negative (Negative); Color,Urine Yellow; Glucose,Urine (UA) Negative (Negative); Ketones,Urine Negative (Negative); Leukocyte Esterase,Urine Negative (Negative); Nitrite,Urine Negative (Negative); Protein,Urine Negative (Negative); Specific Gravity,Urine 1.011 (1.001-1.035)
[2020-08-10 08:47] LABS: Basophils % (A) 0 %; Eosinophils # (A) 0.3 k/uL (0-0.7); Eosinophils % (A) 3 %; HGB 12.2 gm/dL (11.4-16.0); Lymphocytes # (A) 1.8 k/uL (1.0-4.8); Lymphocytes % (A) 20 %; MCH 28.1 pg (25.0-35.0); MCHC 32.9 g/dL (31.0-37.0); MCV 85.4 fL (80.0-100.0); Monocytes # (A) 0.4 k/uL (0-1.0); Monocytes % (A) 4 %; Neutrophils # (A) 6.6 k/uL (1.3-7.7); Neutrophils % (A) 71 %; Platelet Count 386 k/uL (150-450); Poikilocytosis Slight; RBC 4.33 m/uL (3.80-5.40); RDW 15.7 % (11.5-15.5); WBC 9.2 k/uL (3.8-10.6)
[2020-08-10 08:49] LABS: ALT 17 U/L (4-34); AST 22 U/L (14-36); African American GFR (CKD) >90 (>60 ml/min/1.73 sqM); Albumin 3.8 g/dL (3.5-5.0); Alkaline Phosphatase 112 U/L (38-126); Anion Gap 8 mmol/L; Blood Urea Nitrogen 12 mg/dL (7-17); Calcium 8.8 mg/dL (8.4-10.2); Carbon Dioxide 35 mmol/L (22-30); Chloride 98 mmol/L (98-107); Glucose 131 mg/dL (74-99); Non-African American GFR(CKD) >90 (>60 ml/min/1.73 sqM); Potassium 3.1 mmol/L (3.5-5.1); Sodium 141 mmol/L (137-145); Total Bilirubin 0.9 mg/dL (0.2-1.3); Total Protein 6.5 g/dL (6.3-8.2)
[2020-08-10] MEDS ORDERED: POTASSIUM CHLORIDE ER 20 MEQ TAB.ER PO STA (09:14)
--- NOTE | 2020-08-10 09:46 | CT ---
EXAMINATION TYPE: CT abdomen pelvis w con DATE OF EXAM: 08/10/2020 COMPARISON: CT abdomen pelvis 09/14/2019 HISTORY: Fall, Abd pain CT DLP: 2362.9 mGycm Automated exposure control for dose reduction was used. TECHNIQUE: Helical acquisition of images was performed from the lung bases through the pelvis. CONTRAST: Performed without Oral Contrast and with IV Contrast, patient injected with 100 mL of Isovue 300. FINDINGS: LUNG BASES: Normal. LIVER: Normal attenuation. No focal abnormality. Measures up to 20.4 cm craniocaudal, previously 22.4 cm on 09/14/2019 comparison. BILIARY SYSTEM: Status post cholecystectomy. No intrahepatic or extrahepatic biliary ductal dilatatio n. PANCREAS: Normal. SPLEEN: Normal. Measures 13.8 cm craniocaudal, previously 15.3 cm on 09/14/2019 comparison. ADRENALS: Right adrenal gland normal. Left adrenal gland nodule demonstrates interval increase in siz e measuring up to 3.6 x 3.2 cm x 3.5, previously measuring 2.1 x 3.0 cm on 09/14/2019 comparison, wit h indeterminate Hounsfield units. KIDNEYS: Nonobstructing 2 mm right nephrolithiasis. No hydronephrosis or hydroureter bilaterally. No ureteral or bladder calculi. BOWEL: No evidence of bowel obstruction or thickening. PERITONEUM: No free air is visualized. No free fluid. ADENOPATHY: No lymphadenopathy. PELVIS: Normal. Tubal ligation changes bilaterally. VASCULATURE: No abdominal aortic aneurysm. MUSCULOSKELETAL: No acute osseous normality. Degenerative changes of the spine. Degenerative changes of the hips, right greater than left. IMPRESSION: 1. No acute abdominopelvic process. 2. Increased size of indeterminate left adrenal mass measuring up to 3.6 cm, previously 3.0 cm on comparison. Additional workup with CT or MRI adrenal mass protocol is recommended. 3. Nonobstructing 2 mm right renal calculus.
[2020-08-10 10:08] VITALS: BP 169/89; RESP 18
== END 2020-08-10 10:04 | disposition home or self-care (01) ==
LOC: EC 07:59
DX: R11.2 Nausea with vomiting, unspecified (principal); R10.30 Lower abdominal pain, unspecified; E87.5 Hyperkalemia; N28.89 Other specified disorders of kidney and ureter; E11.9 Type 2 diabetes mellitus without complications; I10 Essential (primary) hypertension; Z79.4 Long term (current) use of insulin; Z79.899 Other long term (current) drug therapy; Z90.49 Acquired absence of other specified parts of digestive tract; W10.9XXA Fall (on) (from) unspecified stairs and steps, initial encounter; Y92.009 Unspecified place in unspecified non-institutional (private) residence as the place of occurrence of the external cause
CPT/HCPCS: 36415; 93005; 80053; 83605; 83690; 84484; 85025; 81003; 74177; 99284; 96374; 96375 ×2; 96361; J1200; J2765; Q9967

== ENCOUNTER → 2020-10-05 | Outpatient (CLI) | payer OTHER | END | disposition home or self-care (01) | LOC: RADMRIMAIN 17:01 | PROVIDERS: ATTEND Internal Medicine | DX: Z53.9 Procedure and treatment not carried out, unspecified reason (principal) ==

== ENCOUNTER 2021-11-27 09:30 | Emergency (ER) | payer OTHER ==
[2021-11-27] MEDS ORDERED: SODIUM CHLORIDE 0.9% 500 ML 500 ML IV STA (09:43)
[2021-11-27] MEDS ORDERED: SODIUM CHLORIDE 0.9% 1,000 ML IV STA (09:43)
[2021-11-27 09:46] VITALS: RESP 18; TEMP 98.5
[2021-11-27 10:01] LABS: Basophils % (A) 0 %; Eosinophils # (A) 0.3 k/uL (0-0.7); Eosinophils % (A) 3 %; HCT 38.9 % (34.0-46.0); HGB 13.2 gm/dL (11.4-16.0); Lymphocytes # (A) 2.8 k/uL (1.0-4.8); Lymphocytes % (A) 26 %; MCH 29.3 pg (25.0-35.0); MCHC 33.9 g/dL (31.0-37.0); MCV 86.3 fL (80.0-100.0); Monocytes # (A) 0.4 k/uL (0-1.0); Monocytes % (A) 4 %; Neutrophils # (A) 7.2 k/uL (1.3-7.7); Neutrophils % (A) 67 %; Platelet Count 218 k/uL (150-450); RBC 4.51 m/uL (3.80-5.40); WBC 10.8 k/uL (3.8-10.6)
--- NOTE | 2021-11-27 10:09 | XR ---
EXAMINATION TYPE: XR chest 2V DATE OF EXAM: 11/27/2021 COMPARISON: Chest x-ray 01/20/2018 HISTORY: Shortness of breath, cough and syncope TECHNIQUE: Frontal and lateral views of the chest are obtained. FINDINGS: Patient is rotated. There is no focal air space opacity, pleural effusion, or pneumothorax seen. The cardiac silhouette size is within normal limits. Surgical clips are present in the right upper quadrant. Right hemidiaphragm remains elevated, there is eventration change. The osseous struct ures are intact. IMPRESSION: No acute cardiopulmonary process.
[2021-11-27 10:26] LABS: African American GFR (CKD) >90 (>60 ml/min/1.73 sqM); Albumin 3.6 g/dL (3.5-5.0); Amylase <30 U/L (30-110); Anion Gap 8 mmol/L; Blood Urea Nitrogen 24 mg/dL (7-17); Calcium 8.6 mg/dL (8.4-10.2); Carbon Dioxide 27 mmol/L (22-30); Chloride 97 mmol/L (98-107); Glucose 213 mg/dL (74-99); Non-African American GFR(CKD) >90 (>60 ml/min/1.73 sqM); Potassium 3.7 mmol/L (3.5-5.1); Sodium 132 mmol/L (137-145); Total Bilirubin 0.6 mg/dL (0.2-1.3); Total Protein 5.9 g/dL (6.3-8.2)
[2021-11-27 10:28] LABS: ALT 42 U/L (4-34); AST 25 U/L (14-36); Alkaline Phosphatase 68 U/L (38-126); Lipase 47 U/L (23-300); Magnesium 1.5 mg/dL (1.6-2.3)
[2021-11-27] MEDS ORDERED: MAGNESIUM OXIDE 400 MG TAB PO STA (10:32)
[2021-11-27] MEDS ORDERED: SODIUM CHLORIDE 0.9% 50 ML IVPB ONE (11:00)
[2021-11-27] MEDS ORDERED: SOTROVIMAB (EUA) 500 MG in SODIUM CHLORIDE 0.9% 100 ML IVPB ONE (11:00)
--- NOTE | 2021-11-27 12:14 | ED ---
General Adult HPI - General Chief complaint: Weakness Stated complaint: Weakness/Covid+ Time Seen by Provider: 11/27/21 09:33 Source: patient, EMS, RN notes reviewed Mode of arrival: EMS Limitations: no limitations - History of Present Illness Initial comments: 46-year-old female presents emergency Department with chief complaint of covid 19. Patient is positive on Thursday. She states that she's been very tired, weak feeling. Patient states she had an near syncopal episodes denies any chest pain no severe shortness breath she does have a cough is productive nauseated mild GI symptoms. Patient states she has no dysuria no hematuria she is currently on steroids for adrenal gland she states she's only on prednisone though they are tapering her down. Patient offers no other complaints - Related Data Home Medications Medication Instructions Recorded Confirmed Atorvastatin Calcium [Lipitor] 40 mg PO DAILY 08/10/20 11/27/21 Lisinopril-Hctz 20-12.5 mg 1 tab PO DAILY 08/10/20 11/27/21 [Zestoretic 20-12.5] Omeprazole 20 mg PO DAILY 08/10/20 11/27/21 Pioglitazone HCl 7.5 mg PO DAILY 08/10/20 11/27/21 Dulaglutide [Trulicity] 3 mg SQ SA 11/27/21 11/27/21 Ergocalciferol [Vitamin D2 (1250 1,250 mcg PO TH 11/27/21 11/27/21 Mcg = 47074 Iu)] Insulin Glargine,Hum.rec.anlog 30 unit SQ DAILY 11/27/21 11/27/21 [Lantus Solostar Pen] Ondansetron Odt [Zofran Odt] 4 mg PO Q6H PRN 11/27/21 11/27/21 Spironolactone [Aldactone] 100 mg PO BID 11/27/21 11/27/21 predniSONE [Deltasone] 30 mg PO DAILY 11/27/21 11/27/21 Previous Rx's Medication Instructions Recorded Acetaminophen with Codeine 1 tab PO Q6H PRN 3 Days #12 tab 11/25/18 [Tylenol w/codeine #3] Allergies Allergy/AdvReac Type Severity Reaction Status Date / Time metoprolol AdvReac Abdominal Verified 11/27/21 11:48 Pain Review of Systems ROS Statement: Those systems with pertinent positive or pertinent negative responses have been documented in the HPI. ROS Other: All systems not noted in ROS Statement are negative. Past Medical History Past Medical History: Asthma, Diabetes Mellitus, Hypertension Additional Past Medical History / Comment(s): cushings History of Any Multi-Drug Resistant Organisms: None Reported Past Surgical History: Breast Surgery, Section, Cholecystectomy, Orthopedic Surgery, Tonsillectomy, Tubal Ligation, Uterine Ablation Additional Past Surgical History / Comment(s): 2 lypomas removed, 2 c sec, 2 [address] surgeries, left kdney adrenal gland removed Past Anesthesia/Blood Transfusion Reactions: No Reported Reaction Past Psychological History: No Psychological Hx Reported Smoking Status: Never smoker Past Alcohol Use History: None Reported Past Drug Use History: None Reported - Past Family History Mother Additional Family Medical History / Comment(s): ETOH Father Additional Family Medical History / Comment(s): ETOH Brother(s) Additional Family Medical History / Comment(s): DRUG ABUSE Son(s) Family Medical History: Asthma Daughter(s) Family Medical History: Asthma General Exam Limitations: no limitations General appearance: alert, in no apparent distress Head exam: Present: atraumatic, normocephalic, normal inspection Eye exam: Present: normal appearance, PERRL, EOMI. Absent: scleral icterus, conjunctival injection, periorbital swelling ENT exam: Present: normal exam, normal oropharynx, mucous membranes moist Neck exam: Present: normal inspection, full ROM. Absent: tenderness, meningismus, lymphadenopathy Respiratory exam: Present: normal lung sounds bilaterally. Absent: respiratory distress, wheezes, rales, rhonchi, stridor Cardiovascular Exam: Present: regular rate, normal rhythm, normal heart sounds. Absent: systolic murmur, diastolic murmur, rubs, gallop, clicks GI/Abdominal exam: Present: soft, normal bowel sounds. Absent: distended, tenderness, guarding, rebound, rigid Course Vital Signs 11/27/21 09:40 Temperature 98.5 F Pulse Rate 108 H Respiratory 18 Rate Blood Pressure 122/71 O2 Sat by Pulse 98 Oximetry Medical Decision Making - Medical Decision Making Patient's x-rays unremarkable. Patient's other review patient does have mild hypomagnesemia. Patient does qualify for monoclonal antibodies patient did receive infusion will be discharged in stable condition return parameters were discussed. - Lab Data Result diagrams: 11/27/21 09:52 11/27/21 09:52 Lab Results 11/27/21 11/27/21 Range/Units 09:52 09:52 WBC 10.8 H (3.8-10.6) k/uL RBC 4.51 (3.80-5.40) m/uL Hgb 13.2 (11.4-16.0) gm/dL Hct 38.9 (34.0-46.0) % MCV 86.3 (80.0-100.0) fL MCH 29.3 (25.0-35.0) pg MCHC 33.9 (31.0-37.0) g/dL RDW 14.0 (11.5-15.5) % Plt Count 218 (150-450) k/uL MPV 7.0 Neutrophils % 67 % Lymphocytes % 26 % Monocytes % 4 % Eosinophils % 3 % Basophils % 0 % Neutrophils # 7.2 (1.3-7.7) k/uL Lymphocytes # 2.8 (1.0-4.8) k/uL Monocytes # 0.4 (0-1.0) k/uL Eosinophils # 0.3 (0-0.7) k/uL Basophils # 0.0 (0-0.2) k/uL Sodium 132 L (137-145) mmol/L Potassium 3.7 (3.5-5.1) mmol/L Chloride 97 L (98-107) mmol/L Carbon Dioxide 27 (22-30) mmol/L Anion Gap 8 mmol/L BUN 24 H (7-17) mg/dL Creatinine 0.66 (0.52-1.04) mg/dL Est GFR (CKD-EPI)AfAm >90 (>60 ml/min/1.73 sqM) Est GFR (CKD-EPI)NonAf >90 (>60 ml/min/1.73 sqM) Glucose 213 H (74-99) mg/dL Calcium 8.6 (8.4-10.2) mg/dL Magnesium 1.5 L (1.6-2.3) mg/dL Total Bilirubin 0.6 (0.2-1.3) mg/dL AST 25 (14-36) U/L ALT 42 H (4-34) U/L Alkaline Phosphatase 68 (38-126) U/L Total Protein 5.9 L (6.3-8.2) g/dL Albumin 3.6 (3.5-5.0) g/dL Amylase <30 L (30-110) U/L Lipase 47 (23-300) U/L Disposition Clinical Impression: COVID-19 Disposition: HOME SELF-CARE Condition: Stable Instructions (If sedation given, give patient instructions): Hypomagnesemia (ED) Additional Instructions: Please return to the Emergency Department if symptoms worsen or any other concerns. Is patient prescribed a controlled substance at d/c from ED?: No Referrals: Annamaria Lackey MD [Primary Care Provider] - 1-2 days Time of Disposition: 12:14
[2021-11-27 12:28] LABS: Appearance,Urine Cloudy (Clear); Bacteria,Urine Many /hpf; Bilirubin,Urine Negative (Negative); Blood,Urine Negative (Negative); Color,Urine Yellow; Glucose,Urine (UA) Negative (Negative); Ketones,Urine Trace (Negative); Leukocyte Esterase,Urine Large (Negative); Mucus,Urine Moderate /hpf; Nitrite,Urine Positive (Negative); PH, Urine 5.5 (5.0-8.0); Protein,Urine Trace (Negative); Specific Gravity,Urine 1.024 (1.001-1.035); Squamous Epithelial Cell,Urine 5 /hpf (0-4); Urobilinogen,Urine <2.0 mg/dL (<2.0); WBC,Urine 77 /hpf (0-5)
[2021-11-27 12:51] VITALS: BP 129/77; PULSE 82
== END 2021-11-27 12:47 | disposition home or self-care (01) ==
LOC: EC 09:30
DX: U07.1 COVID-19 (principal); E11.9 Type 2 diabetes mellitus without complications; J45.909 Unspecified asthma, uncomplicated; I10 Essential (primary) hypertension; Z88.8 Allergy status to other drugs, medicaments and biological substances
CPT/HCPCS: 99284; 36415; 93005; 80053; 82150; 83690; 83735; 85025; 81001; 87086; 71046; 96360; Q0247

== ENCOUNTER → 2022-01-02 | Outpatient (CLI) | payer OTHER ==
--- NOTE | 2022-01-02 14:55 | US ---
EXAMINATION TYPE: US kidneys/renal and bladder DATE OF EXAM: 01/02/2022 COMPARISON: NONE CLINICAL HISTORY: R10.9 ABDOMINAL PAIN. Pain left renal removed EXAM MEASUREMENTS: Right Kidney: 12.1 x 5.3 x 5.3 cm Left Kidney: 11.2 x 5.8 x 4.4 cm Right Kidney: No hydronephrosis or masses seen Left Kidney: No hydronephrosis or masses seen Bladder: Anechoic Bilateral Jets seen: Only left ureteral jet noted There is no evidence for hydronephrosis at this point in time. No nephrolithiasis is seen. No saira s are identified. The urinary bladder is anechoic. IMPRESSION: No hydronephrosis or nephrolithiasis.
[2022-01-02 23:28] LABS: Basophils # (A) 0.05 X 10*3/uL (0.00-0.10); Basophils % (A) 0.3 %; Eosinophils # (A) 0.11 X 10*3/uL (0.04-0.35); Eosinophils % (A) 0.6 %; HCT 34.9 % (37.2-46.3); HGB 11.3 g/dL (12.0-15.0); Lymphocytes % (A) 9.1 %; MCHC 32.4 g/dL (32.0-37.0); MCV 92.6 fL (80.0-97.0); Mean Platelet Volume 10.2 fL (9.5-12.2); Monocytes # (A) 0.71 X 10*3/uL (0.20-1.00); NRBC Per 100 WBC 0 /100 WBCS (0.0-0.0); Platelet Count 382 X 10*3/uL (140-440); RBC 3.77 X 10*6/uL (4.10-5.20); RDW 17.2 % (11.5-14.5); WBC 17.55 X 10*3/uL (4.50-10.00)
== END | disposition home or self-care (01) ==
LOC: RADUSWWP 14:09
PROVIDERS: ATTEND Family Medicine
DX: D72.829 Elevated white blood cell count, unspecified (principal); R10.9 Unspecified abdominal pain
CPT/HCPCS: 76770; 85025

== ENCOUNTER 2022-01-27 15:23 | Emergency (ER) | payer OTHER ==
[2022-01-27 15:38] VITALS: TEMP 97.8
[2022-01-27] MEDS ORDERED: ONDANSETRON 4 MG/2 ML VIAL IVP STA (18:35)
[2022-01-27 18:38] LABS: Basophils % (A) 0 %; Eosinophils % (A) 1 %; HCT 31.6 % (34.0-46.0); HGB 11.3 gm/dL (11.4-16.0); Hyperchromasia Slight; Lymphocytes # (A) 0.9 k/uL (1.0-4.8); Lymphocytes % (A) 14 %; MCH 31.1 pg (25.0-35.0); MCHC 35.7 g/dL (31.0-37.0); MCV 87.1 fL (80.0-100.0); Mean Platelet Volume 7.5; Monocytes # (A) 0.2 k/uL (0-1.0); Monocytes % (A) 3 %; Neutrophils # (A) 5.4 k/uL (1.3-7.7); Neutrophils % (A) 80 %; Platelet Count 219 k/uL (150-450); Poikilocytosis Moderate; RBC 3.63 m/uL (3.80-5.40); RDW 15.8 % (11.5-15.5); WBC 6.7 k/uL (3.8-10.6)
[2022-01-27 18:50] LABS: Albumin 3.6 g/dL (3.5-5.0); Total Protein 6.2 g/dL (6.3-8.2)
--- NOTE | 2022-01-27 19:01 | ED ---
Weakness HPI - General Chief complaint: Weakness Stated complaint: Weakness Time Seen by Provider: 01/27/22 17:34 Source: patient Mode of arrival: ambulatory Limitations: no limitations - History of Present Illness Initial comments: Patient is a 46-year-old female who presents to the emergency department with a chief complaint of generalized weakness. Patient states she had her adrenal gland removed in October and has been taking prednisone. Patient has been on a prednisone taper for 2 weeks that started at 40 mg. On Thursday her dose was changed from 15 mg to 10 mg. Patient's symptoms started on Thursday. Patient states she felt weak and fatigued. Patient states she slept all day on Thursday and has continued to feel lethargic. Patient reports epigastric, right sided chest wall, and bilateral buttock pain that is tender to the touch. Patient states her son tried to hug her which caused patient to experience a lot of pain. Patient reports nausea with no vomiting. Patient has not noticed any changes in her skin color. Patient has no other concerns at this time including fever, chills, shortness of breath, chest pain, and burning with urination. - Related Data Home Medications Medication Instructions Recorded Confirmed Atorvastatin Calcium [Lipitor] 40 mg PO DAILY 08/10/20 01/27/22 Lisinopril-Hctz 20-12.5 mg 1 tab PO DAILY 08/10/20 01/27/22 [Zestoretic 20-12.5] Omeprazole 20 mg PO DAILY 08/10/20 01/27/22 Pioglitazone HCl 7.5 mg PO DAILY 08/10/20 01/27/22 Dulaglutide [Trulicity] 3 mg SQ SA 11/27/21 01/27/22 Ergocalciferol [Vitamin D2 (1250 1,250 mcg PO TU 11/27/21 01/27/22 Mcg = 15377 Iu)] Insulin Glargine,Hum.rec.anlog 20 unit SQ DAILY 11/27/21 01/27/22 [Lantus Solostar Pen] Ondansetron Odt [Zofran Odt] 4 mg PO DAILY PRN 11/27/21 01/27/22 Spironolactone [Aldactone] 100 mg PO BID 11/27/21 01/27/22 Acetaminophen Tab [Tylenol Tab] 1,000 mg PO Q6HR PRN 01/27/22 01/27/22 Acetaminophen with Codeine 1 tab PO DAILY PRN 01/27/22 01/27/22 [Tylenol w/codeine #3] Docusate [Colace] 100 mg PO BID PRN 01/27/22 01/27/22 Ibuprofen [Motrin Ib] 800 mg PO Q8H PRN 01/27/22 01/27/22 predniSONE 10 mg PO DAILY 01/27/22 01/27/22 Previous Rx's Medication Instructions Recorded Ondansetron Odt [Zofran Odt] 4 mg PO Q8HR PRN #21 tab 01/27/22 Allergies Allergy/AdvReac Type Severity Reaction Status Date / Time metoprolol AdvReac Abdominal Verified 01/27/22 19:11 Pain Review of Systems ROS Statement: Those systems with pertinent positive or pertinent negative responses have been documented in the HPI. ROS Other: All systems not noted in ROS Statement are negative. Past Medical History Past Medical History: Asthma, Diabetes Mellitus, Hypertension Additional Past Medical History / Comment(s): cushings History of Any Multi-Drug Resistant Organisms: None Reported Past Surgical History: Breast Surgery, Section, Cholecystectomy, Orthopedic Surgery, Tonsillectomy, Tubal Ligation, Uterine Ablation Additional Past Surgical History / Comment(s): 2 lypomas removed, 2 c sec, 2 wrist surgeries, left kdney adrenal gland removed 10/28/21 Past Anesthesia/Blood Transfusion Reactions: No Reported Reaction Past Psychological History: No Psychological Hx Reported Smoking Status: Never smoker Past Alcohol Use History: None Reported Past Drug Use History: None Reported - Past Family History Mother Additional Family Medical History / Comment(s): ETOH Father Additional Family Medical History / Comment(s): ETOH Brother(s) Additional Family Medical History / Comment(s): DRUG ABUSE Son(s) Family Medical History: Asthma Daughter(s) Family Medical History: Asthma General Exam Limitations: no limitations General appearance: alert, in no apparent distress Head exam: Present: atraumatic, normocephalic, normal inspection Eye exam: Present: normal appearance, PERRL, EOMI. Absent: scleral icterus, conjunctival injection, periorbital swelling Neck exam: Present: normal inspection, full ROM Respiratory exam: Present: normal lung sounds bilaterally, chest wall tenderness (Right-sided). Absent: respiratory distress, wheezes, rales, rhonchi, stridor Cardiovascular Exam: Present: regular rate, normal rhythm, normal heart sounds. Absent: systolic murmur, diastolic murmur, rubs, gallop, clicks GI/Abdominal exam: Present: soft, tenderness (Epigastric region), normal bowel sounds. Absent: distended, guarding, rebound, rigid Neurological exam: Present: alert, oriented X3, CN II-XII intact Psychiatric exam: Present: normal affect, normal mood Skin exam: Present: warm, dry, intact, normal color. Absent: rash Course Vital Signs 01/27/22 01/27/22 15:33 18:30 Temperature 97.8 F Pulse Rate 105 H 106 H Respiratory 18 16 Rate Blood Pressure 117/78 116/73 O2 Sat by Pulse 98 97 Oximetry EKG Findings - EKG Comments: EKG Findings:: EKG taken at its 18:39. Sinus tachycardia. Ventricular rate 105. [place] interval 149. QRS duration 85. QTC 374 Medical Decision Making - Medical Decision Making This is a 46-year-old female who presents with fatigue and weakness 3 days. Thorough history and examination were performed. Patient does have atypical chest pain so cardiac workup was initiated. EKG shows sinus tachycardia. Troponin is negative. She is hyponatremic at 129. SIGRID is detected with creatinine at 1.07. Cortisol level is within normal limits. Fluid bolus, zofran, and GI cocktail were given. Patient feeling moderately better on reevaluation. She'll be discharged with Zofran and instruction to follow up with her doorperson or luggage porter and primary care provider. Patient verba lized understanding and is agreeable to plan. Dr. Poe is my attending. - Lab Data Result diagrams: 01/27/22 18:33 01/27/22 18:33 Lab Results 01/27/22 01/27/22 01/27/22 Range/Units 18:33 18:33 18:33 WBC 6.7 (3.8-10.6) k/uL RBC 3.63 L (3.80-5.40) m/uL Hgb 11.3 L (11.4-16.0) gm/dL Hct 31.6 L (34.0-46.0) % MCV 87.1 (80.0-100.0) fL MCH 31.1 (25.0-35.0) pg MCHC 35.7 (31.0-37.0) g/dL RDW 15.8 H (11.5-15.5) % Plt Count 219 (150-450) k/uL MPV 7.5 Neutrophils % 80 % Lymphocytes % 14 % Monocytes % 3 % Eosinophils % 1 % Basophils % 0 % Neutrophils # 5.4 (1.3-7.7) k/uL Lymphocytes # 0.9 L (1.0-4.8) k/uL Monocytes # 0.2 (0-1.0) k/uL Eosinophils # 0.0 (0-0.7) k/uL Basophils # 0.0 (0-0.2) k/uL Hyperchromasia Slight Poikilocytosis Moderate Sodium 129 L (137-145) mmol/L Potassium 4.0 (3.5-5.1) mmol/L Chloride 93 L (98-107) mmol/L Carbon Dioxide 27 (22-30) mmol/L Anion Gap 9 mmol/L BUN 33 H (7-17) mg/dL Creatinine 1.07 H (0.52-1.04) mg/dL Est GFR (CKD-EPI)AfAm 72 (>60 ml/min/1.73 sqM) Est GFR (CKD-EPI)NonAf 63 (>60 ml/min/1.73 sqM) Glucose 171 H (74-99) mg/dL Calcium 8.0 L (8.4-10.2) mg/dL Total Bilirubin 1.0 (0.2-1.3) mg/dL AST 43 H (14-36) U/L ALT 34 (4-34) U/L Alkaline Phosphatase 59 (38-126) U/L Troponin I <0.012 (0.000-0.034) ng/mL Total Protein 6.2 L (6.3-8.2) g/dL Albumin 3.6 (3.5-5.0) g/dL Lipase 29 (23-300) U/L Cortisol 9 ug/dL Influenza Type A (PCR) (Not Detectd) Influenza Type B (PCR) (Not Detectd) RSV (PCR) (Not Detectd) SARS-CoV-2 (PCR) (Not Detectd) 01/27/22 Range/Units 19:57 WBC (3.8-10.6) k/uL RBC (3.80-5.40) m/uL Hgb (11.4-16.0) gm/dL Hct (34.0-46.0) % MCV (80.0-100.0) fL MCH (25.0-35.0) pg MCHC (31.0-37.0) g/dL RDW (11.5-15.5) % Plt Count (150-450) k/uL MPV Neutrophils % % Lymphocytes % % Monocytes % % Eosinophils % % Basophils % % Neutrophils # (1.3-7.7) k/uL Lymphocytes # (1.0-4.8) k/uL Monocytes # (0-1.0) k/uL Eosinophils # (0-0.7) k/uL Basophils # (0-0.2) k/uL Hyperchromasia Poikilocytosis Sodium (137-145) mmol/L Potassium (3.5-5.1) mmol/L Chloride (98-107) mmol/L Carbon Dioxide (22-30) mmol/L Anion Gap mmol/L BUN (7-17) mg/dL Creatinine (0.52-1.04) mg/dL Est GFR (CKD-EPI)AfAm (>60 ml/min/1.73 sqM) Est GFR (CKD-EPI)NonAf (>60 ml/min/1.73 sqM) Glucose (74-99) mg/dL Calcium (8.4-10.2) mg/dL Total Bilirubin (0.2-1.3) mg/dL AST (14-36) U/L ALT (4-34) U/L Alkaline Phosphatase (38-126) U/L Troponin I (0.000-0.034) ng/mL Total Protein (6.3-8.2) g/dL Albumin (3.5-5.0) g/dL Lipase (23-300) U/L Cortisol ug/dL Influenza Type A (PCR) Not Detected (Not Detectd) Influenza Type B (PCR) Not Detected (Not Detectd) RSV (PCR) Not Detected (Not Detectd) SARS-CoV-2 (PCR) Not Detected (Not Detectd) Disposition Clinical Impression: Weakness, Fatigue, Acute kidney injury Disposition: HOME SELF-CARE Condition: Good Instructions (If sedation given, give patient instructions): Weakness (ED) Additional Instructions: Please take medication as directed. You may take [id number] Pepcid for heartburn symptoms. Follow-up with your doorperson or luggage porter as planned. Return to the emergency department if you experience new, concerning, or worsening symptoms. Prescriptions: Ondansetron Odt [Zofran Odt] 4 mg PO Q8HR PRN #21 tab PRN Reason: Nausea Is patient prescribed a controlled substance at d/c from ED?: No Referrals: Annamaria Lackey MD [Primary Care Provider] - 1-2 days Time of Disposition: 21:54
[2022-01-27] MEDS ORDERED: SODIUM CHLORIDE 0.9% 2,000 ML IV STA (19:35)
[2022-01-27] MEDS ORDERED: MAG HYDROX/AL HYDROX/SIMETH 30 ML, HYOSCYAMINE ELIXIR 10 ML PO STA ×2 (19:58)
--- NOTE | 2022-01-27 20:10 | XR ---
EXAMINATION TYPE: XR chest 2V DATE OF EXAM: 01/27/2022 7:45 PM COMPARISON: Chest radiographs from 11/27/2021. TECHNIQUE: XR chest 2V Frontal and lateral views of the chest. CLINICAL INDICATION:Female, 46 years old with history of atypical chest pain; FINDINGS: Lungs/Pleura: Streaky atelectasis seen within the right lung base. There is no evidence of pleural ef fusion, focal consolidation, or pneumothorax. Pulmonary vascularity: Unremarkable. Heart/mediastinum: Cardiomediastinal silhouette is unremarkable. Musculoskeletal: No acute osseous pathology. IMPRESSION: No acute cardiopulmonary disease/process.
[2022-01-27 20:36] VITALS: RESP 16
[2022-01-27 22:35] VITALS: BP 115/64; PULSE 102
== END 2022-01-27 22:41 | disposition home or self-care (01) ==
LOC: EC 15:23
DX: R53.1 Weakness (principal); N17.9 Acute kidney failure, unspecified; I10 Essential (primary) hypertension; E11.9 Type 2 diabetes mellitus without complications; J45.909 Unspecified asthma, uncomplicated; Z88.8 Allergy status to other drugs, medicaments and biological substances; Z20.822 Contact with and (suspected) exposure to COVID-19; Z79.899 Other long term (current) drug therapy; Z79.84 Long term (current) use of oral hypoglycemic drugs; Z79.4 Long term (current) use of insulin
CPT/HCPCS: 36415; 93005; 80053; 82533; 84244; 83690; 84484; 85025; 82024; 87636; 71046; 99285; 96374; 96361; J2405

== ENCOUNTER 2022-03-03 09:37 | Observation (INO) | payer OTHER ==
[2022-03-03] MEDS ORDERED: SODIUM CHLORIDE 0.9% 1,000 ML IV STA ×2 (10:17→13:12)
[2022-03-03] MEDS ORDERED: HYDROCORTISONE SUCCINATE 100 MG/2 ML VIAL IV STA (10:18)
--- NOTE | 2022-03-03 10:21 | ED ---
General Adult HPI - General Chief complaint: Weakness Stated complaint: Weakness Time Seen by Provider: 03/03/22 09:57 Source: patient, family, RN notes reviewed Mode of arrival: ambulatory Limitations: no limitations - History of Present Illness Initial comments: Patient is a pleasant 46-year-old female presenting to the emergency Department with concerns for adrenal sufficiency. Patient had her adrenal gland removed less than a year ago. Patient did have cold bed 19 infection back in October. Patient has had problems since that time. Patient is unable to wean lower than 30 mg of prednisone daily. Patient has felt shaky this morning. Patient has felt chilled. Patient did vomit one time. Symptoms are similar to previous adrenal crisis. - Related Data Home Medications Medication Instructions Recorded Confirmed Atorvastatin Calcium [Lipitor] 40 mg PO DAILY 08/10/20 03/03/22 Lisinopril-Hctz 20-12.5 mg 1 tab PO DAILY 08/10/20 03/03/22 [Zestoretic 20-12.5] Omeprazole 20 mg PO DAILY 08/10/20 03/03/22 Pioglitazone HCl 15 mg PO DAILY 08/10/20 03/03/22 Dulaglutide [Trulicity] 3 mg SQ SA 11/27/21 03/03/22 Ergocalciferol [Vitamin D2 (1250 1,250 mcg PO TU 11/27/21 03/03/22 Mcg = 19292 Iu)] Insulin Glargine,Hum.rec.anlog 20 unit SQ DAILY 11/27/21 03/03/22 [Lantus Solostar Pen] Spironolactone [Aldactone] 200 mg PO DAILY 11/27/21 03/03/22 Docusate [Colace] 100 mg PO DAILY 01/27/22 03/03/22 predniSONE 10 mg PO DAILY 01/27/22 03/03/22 predniSONE 3 mg PO DAILY 03/03/22 03/03/22 Allergies Allergy/AdvReac Type Severity Reaction Status Date / Time metoprolol AdvReac Abdominal Verified 03/03/22 11:43 Pain Review of Systems ROS Statement: Those systems with pertinent positive or pertinent negative responses have been documented in the HPI. ROS Other: All systems not noted in ROS Statement are negative. Constitutional: Reports: chills Eyes: Denies: eye pain ENT: Denies: ear pain Respiratory: Denies: cough Cardiovascular: Denies: chest pain Endocrine: Reports: fatigue Gastrointestinal: Reports: nausea, vomiting (1 time). Denies: abdominal pain Genitourinary: Denies: dysuria Musculoskeletal: Denies: back pain Skin: Denies: rash Neurological: Denies: confusion Past Medical History Past Medical History: Asthma, Diabetes Mellitus, Hypertension Additional Past Medical History / Comment(s): cushings History of Any Multi-Drug Resistant Organisms: None Reported Past Surgical History: Breast Surgery, Section, Cholecystectomy, Orthopedic Surgery, Tonsillectomy, Tubal Ligation, Uterine Ablation Additional Past Surgical History / Comment(s): 2 lypomas removed, 2 c sec, 2 wrist surgeries, left kdney adrenal gland removed 10/28/21 Past Anesthesia/Blood Transfusion Reactions: No Reported Reaction Past Psychological History: No Psychological Hx Reported Smoking Status: Never smoker Past Alcohol Use History: None Reported Past Drug Use History: None Reported - Past Family History Mother Additional Family Medical History / Comment(s): ETOH Father Additional Family Medical History / Comment(s): ETOH Brother(s) Additional Family Medical History / Comment(s): DRUG ABUSE Son(s) Family Medical History: Asthma Daughter(s) Family Medical History: Asthma General Exam Limitations: no limitations General appearance: alert, in no apparent distress Head exam: Present: normocephalic Eye exam: Present: normal appearance Neck exam: Present: normal inspection Respiratory exam: Present: normal lung sounds bilaterally. Absent: respiratory distress Cardiovascular Exam: Present: tachycardia GI/Abdominal exam: Present: soft. Absent: distended, tenderness Extremities exam: Present: normal inspection. Absent: pedal edema, calf tenderness Neurological exam: Present: alert Psychiatric exam: Present: normal affect, normal mood Skin exam: Present: normal color Course Vital Signs 03/03/22 03/03/22 09:39 11:36 Temperature 98.7 F 99.8 F H Pulse Rate 139 H 126 H Respiratory 26 H 20 Rate Blood Pressure 115/66 112/54 O2 Sat by Pulse 100 100 Oximetry EKG Findings - EKG Comments: EKG Findings:: Sinus tachycardia 127. CO 142. QRS 82. QT 281. QTc 356. Normal axis. Normal QRS. No acute ST change. Medical Decision Making - Medical Decision Making Patient reevaluated. Dr. Krause was in speaking with the patient and did update her. He will admit For Dr. Lackey. - Lab Data Result diagrams: 03/03/22 10:23 03/03/22 10:23 Lab Results 03/03/22 03/03/22 03/03/22 Range/Units 10:23 10:23 10:23 WBC 10.9 H (3.8-10.6) k/uL RBC 4.05 (3.80-5.40) m/uL Hgb 12.0 (11.4-16.0) gm/dL Hct 35.7 (34.0-46.0) % MCV 88.2 (80.0-100.0) fL MCH 29.7 (25.0-35.0) pg MCHC 33.7 (31.0-37.0) g/dL RDW 16.1 H (11.5-15.5) % Plt Count 318 (150-450) k/uL MPV 6.9 Neutrophils % 86 % Lymphocytes % 10 % Monocytes % 3 % Eosinophils % 0 % Basophils % 0 % Neutrophils # 9.4 H (1.3-7.7) k/uL Lymphocytes # 1.1 (1.0-4.8) k/uL Monocytes # 0.3 (0-1.0) k/uL Eosinophils # 0.0 (0-0.7) k/uL Basophils # 0.0 (0-0.2) k/uL Poikilocytosis Slight Anisocytosis Slight Sodium 133 L (137-145) mmol/L Potassium 4.5 (3.5-5.1) mmol/L Chloride 96 L (98-107) mmol/L Carbon Dioxide 26 (22-30) mmol/L Anion Gap 11 mmol/L BUN 31 H (7-17) mg/dL Creatinine 0.98 (0.52-1.04) mg/dL Est GFR (CKD-EPI)AfAm 80 (>60 ml/min/1.73 sqM) Est GFR (CKD-EPI)NonAf 69 (>60 ml/min/1.73 sqM) Glucose 181 H (74-99) mg/dL Plasma Lactic Acid Damon (0.7-2.0) mmol/L Calcium 9.4 (8.4-10.2) mg/dL Magnesium 1.6 (1.6-2.3) mg/dL Total Bilirubin 0.9 (0.2-1.3) mg/dL AST 23 (14-36) U/L ALT 23 (4-34) U/L Alkaline Phosphatase 59 (38-126) U/L Total Protein 6.8 (6.3-8.2) g/dL Albumin 4.1 (3.5-5.0) g/dL TSH 1.390 (0.465-4.680) mIU/L Free T4 1.38 (0.78-2.19) ng/dL Free T3 pg/mL 3.8 (2.8-5.3) pg/ml Cortisol 10 ug/dL Urine Color Yellow Urine Appearance Cloudy H (Clear) Urine pH 5.5 (5.0-8.0) Ur Specific [place] 1.026 (1.001-1.035) Urine Protein Trace H (Negative) Urine Glucose (UA) Negative (Negative) Urine Ketones Trace H (Negative) Urine Blood Negative (Negative) Urine Nitrite Negative (Negative) Urine Bilirubin Negative (Negative) Urine Urobilinogen <2.0 (<2.0) mg/dL Ur Leukocyte Esterase Negative (Negative) Urine RBC <1 (0-5) /hpf Urine WBC 2 (0-5) /hpf Ur Squamous Epith Cells 5 H (0-4) /hpf Urine Bacteria Occasional H (None) /hpf Urine Mucus Moderate H (None) /hpf Coronavirus (PCR) (Not Detectd) Influenza Type A RNA (Not Detectd) Influenza Type B (PCR) (Not Detectd) 03/03/22 03/03/22 03/03/22 Range/Units 10:23 10:23 10:23 WBC (3.8-10.6) k/uL RBC (3.80-5.40) m/uL Hgb (11.4-16.0) gm/dL Hct (34.0-46.0) % MCV (80.0-100.0) fL MCH (25.0-35.0) pg MCHC (31.0-37.0) g/dL RDW (11.5-15.5) % Plt Count (150-450) k/uL MPV Neutrophils % % Lymphocytes % % Monocytes % % Eosinophils % % Basophils % % Neutrophils # (1.3-7.7) k/uL Lymphocytes # (1.0-4.8) k/uL Monocytes # (0-1.0) k/uL Eosinophils # (0-0.7) k/uL Basophils # (0-0.2) k/uL Poikilocytosis Anisocytosis Sodium (137-145) mmol/L Potassium (3.5-5.1) mmol/L Chloride (98-107) mmol/L Carbon Dioxide (22-30) mmol/L Anion Gap mmol/L BUN (7-17) mg/dL Creatinine (0.52-1.04) mg/dL Est GFR (CKD-EPI)AfAm (>60 ml/min/1.73 sqM) Est GFR (CKD-EPI)NonAf (>60 ml/min/1.73 sqM) Glucose (74-99) mg/dL Plasma Lactic Acid Damon 2.0 (0.7-2.0) mmol/L Calcium (8.4-10.2) mg/dL Magnesium (1.6-2.3) mg/dL Total Bilirubin (0.2-1.3) mg/dL AST (14-36) U/L ALT (4-34) U/L Alkaline Phosphatase (38-126) U/L Total Protein (6.3-8.2) g/dL Albumin (3.5-5.0) g/dL TSH (0.465-4.680) mIU/L Free T4 (0.78-2.19) ng/dL Free T3 pg/mL (2.8-5.3) pg/ml Cortisol ug/dL Urine Color Urine Appearance (Clear) Urine pH (5.0-8.0) Ur Specific [place] (1.001-1.035) Urine Protein (Negative) Urine Glucose (UA) (Negative) Urine Ketones (Negative) Urine Blood (Negative) Urine Nitrite (Negative) Urine Bilirubin (Negative) Urine Urobilinogen (<2.0) mg/dL Ur Leukocyte Esterase (Negative) Urine RBC (0-5) /hpf Urine WBC (0-5) /hpf Ur Squamous Epith Cells (0-4) /hpf Urine Bacteria (None) /hpf Urine Mucus (None) /hpf Coronavirus (PCR) Not Detected (Not Detectd) Influenza Type A RNA Not Detected (Not Detectd) Influenza Type B (PCR) Not Detected (Not Detectd) - Radiology Data Radiology results: image reviewed (Chest x-ray shows no acute process) Disposition Clinical Impression: Acute adrenal insufficiency, Tachycardia Disposition: ADMITTED IP TO THIS HOSP Is patient prescribed a controlled substance at d/c from ED?: No Referrals: Annamaria Lackey MD [Primary Care Provider] - 1-2 days Time of Disposition: 12:15
[2022-03-03 10:53] LABS: Appearance,Urine Cloudy (Clear); Bacteria,Urine Occasional /hpf; Bilirubin,Urine Negative (Negative); Blood,Urine Negative (Negative); Color,Urine Yellow; Glucose,Urine (UA) Negative (Negative); Ketones,Urine Trace (Negative); Leukocyte Esterase,Urine Negative (Negative); Mucus,Urine Moderate /hpf; Nitrite,Urine Negative (Negative); PH, Urine 5.5 (5.0-8.0); Protein,Urine Trace (Negative); RBC,Urine <1 /hpf (0-5); Specific Gravity,Urine 1.026 (1.001-1.035); Squamous Epithelial Cell,Urine 5 /hpf (0-4); Urobilinogen,Urine <2.0 mg/dL (<2.0); WBC,Urine 2 /hpf (0-5)
[2022-03-03 10:57] LABS: Anisocytosis Slight; Basophils % (A) 0 %; Eosinophils % (A) 0 %; HCT 35.7 % (34.0-46.0); Lymphocytes # (A) 1.1 k/uL (1.0-4.8); Lymphocytes % (A) 10 %; MCH 29.7 pg (25.0-35.0); MCHC 33.7 g/dL (31.0-37.0); MCV 88.2 fL (80.0-100.0); Mean Platelet Volume 6.9; Monocytes # (A) 0.3 k/uL (0-1.0); Monocytes % (A) 3 %; Neutrophils # (A) 9.4 k/uL (1.3-7.7); Neutrophils % (A) 86 %; Platelet Count 318 k/uL (150-450); Poikilocytosis Slight; RBC 4.05 m/uL (3.80-5.40); RDW 16.1 % (11.5-15.5); WBC 10.9 k/uL (3.8-10.6)
--- NOTE | 2022-03-03 10:57 | XR ---
EXAMINATION TYPE: XR chest 2V DATE OF EXAM: 03/03/2022 COMPARISON: 01/27/2022 TECHNIQUE: PA and lateral views submitted. HISTORY: Weakness FINDINGS: The lungs are clear and there is no pneumothorax, pleural effusion, or focal pneumonia. Arthropathy of the shoulders. A partial eventration of the right hemidiaphragm. Heart size mildly prominent. Hyp ertrophic and degenerative change of the spine. Surgical clips in the gallbladder fossa. Correlate fo r calcific tendinosis of the shoulders. IMPRESSION: 1. No acute process.
[2022-03-03 11:08] LABS: Albumin 4.1 g/dL (3.5-5.0); Calcium 9.4 mg/dL (8.4-10.2); Magnesium 1.6 mg/dL (1.6-2.3); Potassium 4.5 mmol/L (3.5-5.1); Total Bilirubin 0.9 mg/dL (0.2-1.3); Total Protein 6.8 g/dL (6.3-8.2)
[2022-03-03 11:24] LABS: T4, Free (Free Thyroxine) 1.38 ng/dL (0.78-2.19)
[2022-03-03] MEDS ORDERED: LACTULOSE 20 GM/30 ML CUP PO PRN (12:57)
[2022-03-03] MEDS ORDERED: CALCIUM CARBONATE 500 MG CHEWABLE PO PRN (12:57)
[2022-03-03] MEDS ORDERED: ONDANSETRON 4 MG/2 ML VIAL IVP PRN (12:57)
[2022-03-03] MEDS ORDERED: NALOXONE 0.4 MG/ML 1 ML VIAL IV PRN (12:57)
--- NOTE | 2022-03-03 13:11 | P.HPIM ---
History of Present Illness H&P Date: 03/03/22 Chief Complaint: Not feeling well This is a pleasant 46-year-old patient who follows with Dr. Shweta Lackey. 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 She developed later in October COVID 19 infection. Did receive antibody transfusion for the same. She has been on a tapering dose of prednisone down to 30 mg as taken this morning. This morning after taking a shower she started shivering. Could not became warm. Finally decided to come to our office. She does small bite to eat and vomited started feeling more cold a slight cough that in getting dizzy. Denied any urinary symptoms. Portable low-grade fever and tachycardia in the ER. Patient took an extra dose of prednisone before coming in. Given 100 mg of IV hydrocortisone in the ER. Patient's fianc at the bedside. 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 No smoking or alcohol. Family history: Alcoholism in both the parents. Asthma. Physical examination: VITAL SIGNS: 99.8, 126, 20, 112/54, 100% room air GENERAL: BMI 42.1, declining bed, awake a bit tired., Cushingoid facies EYES: Pupils equal. Conjunctiva normal. HEENT: External appearance of nose and ears normal, oral cavity grossly normal. NECK: JVD not raised; masses not palpable. HEART: First and second heart sounds are normal; no edema. LUNGS: Respiratory rate normal; clear to auscultation. ABDOMEN: Soft, nontender, liver spleen not palpable, no masses palpable. PSYCH: Alert and oriented x3; mood and affect normal. MUSCULOSKELETAL:No Clubbing/cyanosis;muscles-grossly intact NEUROLOGICAL: Cranial nerves grossly intact; no facial asymmetry, power and sensation grossly intact. LYMPHATICS: No lymph nodes palpable in the axilla and neck INVESTIGATIONS, reviewed in the clinical context: White count 10.9 hemoglobin 12 platelets 318 sodium 133 potassium 4.5 creatinine 0.98 BUN 31 UA positive for ketones,'s, some epithelial cells. COVID 19/influenza type A type B: All not detected EKG tracing personally reviewed by me-normal sinus rhythm. Rate 127 Chest x-ray film personally reviewed by me-no obvious infiltrate Assessment and plan: -Sepsis, with patient starting to have chills, low-grade fever and elevated white count. IV fluids. Currently no obvious source of infection. Patient does have a slight cough. Checks x-rays unremarkable. On antibiotics for now. 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 Right adrenal gland is currently suppressed per patient. Patient has been on 13 mg dose of prednisone. Did rece christos 100 mg dose of IV hydrocortisone in the ER. Continue with 50 mg every 8. -Diabetes mellitus type 2, chronically on insulin Resume Lantus. Accu-Cheks and sliding scale insulin . Trulicity from home . Hyperlipidemia Lipitor 40 mg a day -GERD Omeprazole 20 mg a day IV hydrocortisone 50 mg every 8. IV fluids. Resume home medications. Sliding scale insulin. Care was discussed with the patient. Cultures pending. Given the complexity and severity of patient's condition expect the patient to be in the hospital at least for 2 overnights Past Medical History Past Medical History: Asthma, Diabetes Mellitus, Hypertension Additional Past Medical History / Comment(s): cushings History of Any Multi-Drug Resistant Organisms: None Reported Past Surgical History: Breast Surgery, Section, Cholecystectomy, Orthopedic Surgery, Tonsillectomy, Tubal Ligation, Uterine Ablation Additional Past Surgical History / Comment(s): 2 lypomas removed, 2 c sec, 2 wrist surgeries, left kdney adrenal gland removed 10/28/21 Past Anesthesia/Blood Transfusion Reactions: No Reported Reaction Past Psychological History: No Psychological Hx Reported Smoking Status: Never smoker Past Alcohol Use History: None Reported Past Drug Use History: None Reported - Past Family History Mother Additional Family Medical History / Comment(s): ETOH Father Additional Family Medical History / Comment(s): ETOH Brother(s) Additional Family Medical History / Comment(s): DRUG ABUSE Son(s) Family Medical History: Asthma Daughter(s) Family Medical History: Asthma Medications and Allergies Home Medications Medication Instructions Recorded Confirmed Type Atorvastatin Calcium [Lipitor] 40 mg PO DAILY 08/10/20 03/03/22 History Lisinopril-Hctz 20-12.5 mg 1 tab PO DAILY 08/10/20 03/03/22 History [Zestoretic 20-12.5] Omeprazole 20 mg PO DAILY 08/10/20 03/03/22 History Pioglitazone HCl 15 mg PO DAILY 08/10/20 03/03/22 History Dulaglutide [Trulicity] 3 mg SQ SA 11/27/21 03/03/22 History Ergocalciferol [Vitamin D2 (1250 1,250 mcg PO TU 11/27/21 03/03/22 History Mcg = 33952 Iu)] Insulin Glargine,Hum.rec.anlog 20 unit SQ DAILY 11/27/21 03/03/22 History [Lantus Solostar Pen] Spironolactone [Aldactone] 200 mg PO DAILY 11/27/21 03/03/22 History Docusate [Colace] 100 mg PO DAILY 01/27/22 03/03/22 History predniSONE 10 mg PO DAILY 01/27/22 03/03/22 History predniSONE 3 mg PO DAILY 03/03/22 03/03/22 History Allergies Allergy/AdvReac Type Severity Reaction Status Date / Time metoprolol AdvReac Abdominal Verified 03/03/22 11:43 Pain Physical Exam Vitals: Vital Signs Temp Pulse Resp BP Pulse Ox 03/03/22 11:36 99.8 F H 126 H 20 112/54 100 03/03/22 09:39 98.7 F 139 H 26 H 115/66 100 Intake and Output 03/02/22 03/03/22 03/03/22 22:59 06:59 14:59 Other: Weight 104.326 kg Results CBC & Chem 7: 03/03/22 10:23 03/03/22 10:23 Labs: Abnormal Lab Results - Last 24 Hours (Table) 03/03/22 03/03/22 03/03/22 Range/Units 10:23 10:23 10:23 WBC 10.9 H (3.8-10.6) k/uL RDW 16.1 H (11.5-15.5) % Neutrophils # 9.4 H (1.3-7.7) k/uL Sodium 133 L (137-145) mmol/L Chloride 96 L (98-107) mmol/L BUN 31 H (7-17) mg/dL Glucose 181 H (74-99) mg/dL Urine Appearance Cloudy H (Clear) Urine Protein Trace H (Negative) Urine Ketones Trace H (Negative) Ur Squamous Epith Cells 5 H (0-4) /hpf Urine Bacteria Occasional H (None) /hpf Urine Mucus Moderate H (None) /hpf
[2022-03-03 14:19] LABS: Glucose,Whole Blood 256 mg/dL (75-99)
[2022-03-03] MEDS: INSULIN ASPART (NovoLOG) 100 UNIT/ML VIAL SQ SCH ×3 (14:25→21:09)
[2022-03-03] MEDS: ENOXAPARIN 40 MG/0.4 ML SYRINGE SQ SCH (14:25)
[2022-03-03] MEDS ORDERED: hydrALAZINE HCL 20 MG/ML 1 ML VIAL IVP STA (14:52)
[2022-03-03 15:16] LABS: Glucose,Whole Blood 304 mg/dL (75-99)
[2022-03-03 16:31] LABS: Glucose,Whole Blood 245 mg/dL (75-99)
[2022-03-03] MEDS: ACETAMINOPHEN TAB 325 MG TAB PO PRN (17:08)
[2022-03-03] MEDS: HYDROCORTISONE SUCCINATE 100 MG/2 ML VIAL IV SCH (17:15)
[2022-03-03 20:55] LABS: Glucose,Whole Blood 193 mg/dL (75-99)
[2022-03-04] MEDS: HYDROCORTISONE SUCCINATE 100 MG/2 ML VIAL IV SCH ×4 (00:06→23:20)
[2022-03-04] MEDS: ACETAMINOPHEN TAB 325 MG TAB PO PRN ×2 (00:07→20:08)
[2022-03-04 06:15] LABS: Glucose,Whole Blood 148 mg/dL (75-99)
[2022-03-04] MEDS: INSULIN ASPART (NovoLOG) 100 UNIT/ML VIAL SQ SCH ×3 (06:50→17:33)
[2022-03-04] MEDS: DOCUSATE 100 MG CAP PO SCH (08:44)
[2022-03-04] MEDS: ENOXAPARIN 40 MG/0.4 ML SYRINGE SQ SCH (08:51)
[2022-03-04] MEDS: LISINOPRIL-HCTZ 20-12.5 MG 1 EACH TAB PO SCH (08:52)
[2022-03-04] MEDS: ATORVASTATIN 40 MG TAB PO SCH (08:52)
[2022-03-04] MEDS: PIOGLITAZONE 15 MG TAB PO SCH (08:52)
[2022-03-04] MEDS: PANTOPRAZOLE 40 MG TABLET PO SCH (08:52)
[2022-03-04] MEDS: INSULIN DETEMIR (LEVEMIR) 100 UNIT/ML SYR SQ SCH (08:55)
[2022-03-04] MEDS: SPIRONOLACTONE 25 MG TAB PO SCH (08:59)
[2022-03-04] MEDS ORDERED: ERGOCALCIFEROL 1,250 MCG (50,000 IU) CAPSULE PO SCH (09:00)
[2022-03-04 09:42] LABS: African American GFR (CKD) >90 (>60 ml/min/1.73 sqM); Anion Gap 10 mmol/L; Blood Urea Nitrogen 20 mg/dL (7-17); Calcium 8.7 mg/dL (8.4-10.2); Carbon Dioxide 26 mmol/L (22-30); Chloride 100 mmol/L (98-107); Glucose 154 mg/dL (74-99); Non-African American GFR(CKD) 89 (>60 ml/min/1.73 sqM); Sodium 136 mmol/L (137-145)
[2022-03-04 11:50] LABS: Glucose,Whole Blood 188 mg/dL (75-99)
[2022-03-04] MEDS ORDERED: RX INFO: IV CONTRAST WAS GIVEN 1 EACH MISC MISCELLANE PRN (15:52)
--- NOTE | 2022-03-04 15:54 | P.PN ---
Progress Note - Text Progress Note Date: 03/04/22 Chief Complaint: Not feeling well This is a pleasant 46-year-old patient who follows with Dr. Shweta Lackey. 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 She developed later in October COVID 19 infection. Did receive antibody transfusion for the same. She has been on a tapering dose of prednisone down to 30 mg as taken this morning. This morning after taking a shower she started shivering. Could not became warm. Finally decided to come to our office. She does small bite to eat and vomited started feeling more cold a slight cough that in getting dizzy. Denied any urinary symptoms. Portable low-grade fever and tachycardia in the ER. Patient took an extra dose of prednisone before coming in. Given 100 mg of IV hydrocortisone in the ER. Patient's fianc at the bedside. March 04: No respiratory symptoms. No urinary symptoms. Feels a bit better than yesterday. Getting IV hydrocortisone. Has been up to the bathroom. Oral intake better. Slight short of breath. CT chest to rule out PE. Ordered. Active Medications Acetaminophen (Acetaminophen Tab 325 Mg Tab) 650 mg PO Q6HR PRN PRN Reason: Mild Pain or Fever > 100.5 Last Admin: 03/04/22 00:07 Dose: 650 mg Documented by: Atorvastatin Calcium (Atorvastatin 40 Mg Tab) 40 mg PO DAILY [facility] Last Admin: 03/04/22 08:52 Dose: 40 mg Documented by: Calcium Carbonate/Glycine (Calcium Carbonate 500 Mg Chewable) 1,000 mg PO Q4HR PRN PRN Reason: Dyspepsia Docusate Sodium (Docusate 100 Mg Cap) 100 mg PO DAILY [facility] Last Admin: 03/04/22 08:44 Dose: Not Given Documented by: Enoxaparin Sodium (Enoxaparin 40 Mg/0.4 Ml Syringe) 40 mg SQ DAILY [facility] Last Admin: 03/04/22 08:51 Dose: 40 mg Documented by: Ergocalciferol (Ergocalciferol 1,250 Mcg (50,000 Iu) Capsule) 1,250 mcg PO TU [facility] Last Admin: 03/04/22 08:52 Dose: 1,250 mcg Documented by: Lisinopril/HCTZ (Lisinopril-Hctz 20-12.5 Mg 1 Each Tab) 1 each PO DAILY [facility] Last Admin: 03/04/22 08:52 Dose: 1 each Documented by: Hydrocortisone Sodium Succinate (Hydrocortisone Succinate 100 Mg/2 Ml Vial) 50 mg IV Q8HR [facility] Last Admin: 03/04/22 08:51 Dose: 50 mg Documented by: Insulin Aspart (Insulin Aspart (Novolog) 100 Unit/Ml Vial) 0 unit SQ AC-TID [facility]; Protocol Last Admin: 03/04/22 12:26 Dose: 5 unit Documented by: Insulin Detemir (Insulin Detemir (Levemir) 100 Unit/Ml Syr) 20 unit SQ DAILY [facility] Last Admin: 03/04/22 08:55 Dose: 20 unit Documented by: Lactulose (Lactulose 20 Gm/30 Ml Cup) 20 gm PO DAILY PRN PRN Reason: Constipation Miscellaneous Information (Rx Info: Iv Contrast Was Given 1 Each Misc) 1 each MISCELLANE DAILY PRN PRN Reason: Per Protocol Stop: 03/06/22 15:52 Naloxone HCl (Naloxone 0.4 Mg/Ml 1 Ml Vial) 0.2 mg IV Q2M PRN PRN Reason: Opioid Reversal Patient's Own ( Dulaglutide [ Trulicity] 3 Mg/0.5 Ml Each) 3 mg SQ SA [facility] Ondansetron HCl (Ondansetron 4 Mg/2 Ml Vial) 4 mg IVP Q8HR PRN PRN Reason: Nausea And Vomiting Pantoprazole Sodium (Pantoprazole 40 Mg Tablet) 40 mg PO DAILY [facility] Last Admin: 03/04/22 08:52 Dose: 40 mg Documented by: Pioglitazone HCl (Pioglitazone 15 Mg Tab) 15 mg PO DAILY [facility] Last Admin: 03/04/22 08:52 Dose: 15 mg Documented by: Spironolactone (Spironolactone 25 Mg Tab) 200 mg PO DAILY [facility] Last Admin: 03/04/22 08:59 Dose: 200 mg Documented by: 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 No smoking or alcohol. Family history: Alcoholism in both the parents. Asthma. Physical examination: VITAL SIGNS: 98.1, 95, 20, 118/78, 97% room air GENERAL: Sitting up in a chair comfortable, Cushingoid facies EYES: Pupils equal. Conjunctiva normal. HEENT: External appearance of nose and ears normal, oral cavity grossly normal. NECK: JVD not raised; masses not palpable. HEART: First and second heart sounds are normal; no edema. LUNGS: Respiratory rate normal; clear to auscultation. ABDOMEN: Soft, nontender, liver spleen not palpable, no masses palpable. PSYCH: Alert and oriented x3; mood and affect normal. MUSCULOSKELETAL:No Clubbing/cyanosis;muscles-grossly intact INVESTIGATIONS, reviewed in the clinical context: March 04: Sodium 136 potassium 4 creatinine 0.8 White count 10.9 hemoglobin 12 platelets 318 sodium 133 potassium 4.5 creatinine 0.98 BUN 31 UA positive for ketones,'s, some epithelial cells. COVID 19/influenza type A type B: All not detected EKG tracing personally reviewed by me-normal sinus rhythm. Rate 127 Chest x-ray film personally reviewed by me-no obvious infiltrate Assessment and plan: -Sepsis, with patient starting to have chills, low-grade fever and elevated white count. Possible viral infection IV fluids. Currently no obvious source of infection. Patient does have a slight cough. Chest x-rays unremarkable. No antibiotics for now. 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 Right adrenal gland is currently suppressed per patient. Patient has been on 13 mg dose of prednisone. Did receive 100 mg dose of IV hydrocortisone in the ER. Decrease hydrocortisone to 25 mg every 8 -Some shortness of breath with exertion. Rule out PE -Diabetes mellitus type 2, chronically on insulin Resume Lantus. Accu-Cheks and sliding scale insulin . Trulicity from home . Hyperlipidemia Lipitor 40 mg a day -GERD Omeprazole 20 mg a day Computed tomography scan of chest with contrast to rule out PE. Cutback hydrocortisone to 25 mg every 8. Discussed with patient.
[2022-03-04 16:55] LABS: Glucose,Whole Blood 160 mg/dL (75-99)
--- NOTE | 2022-03-04 17:11 | CT ---
EXAMINATION TYPE: CT angio chest DATE OF EXAM: 03/04/2022 COMPARISON: None HISTORY: chest pain CT DLP: 605.9 mGycm Automated exposure control for dose reduction was used. CONTRAST: Performed with IV Contrast, patient injected with 69cc mL of Isovue 370. 3-D postprocess images. There is no mediastinal adenopathy. There are no hilar masses. Heart size is normal. No pericardial e ffusion. Thoracic aorta is intact. No aneurysm or dissection. There is normal contrast opacification of the pulmonary arteries. There are no filling defects. There is some mild linear density at the right posterior lung base. The thoracic spine is intact. No compression fracture. Sternum is intact. IMPRESSION: No evidence of pulmonary embolism. There is some mild atelectasis at the right lung base. No suspicio us pulmonary mass. Normal heart.
[2022-03-04 20:08] LABS: Glucose,Whole Blood 186 mg/dL (75-99)
[2022-03-05 06:06] LABS: Glucose,Whole Blood 161 mg/dL (75-99)
[2022-03-05] MEDS: INSULIN ASPART (NovoLOG) 100 UNIT/ML VIAL SQ SCH ×2 (06:18→12:17)
[2022-03-05 07:51] LABS: Basophils % (A) 0 %; Eosinophils % (A) 0 %; HGB 11.6 gm/dL (11.4-16.0); Lymphocytes # (A) 1.5 k/uL (1.0-4.8); Lymphocytes % (A) 22 %; MCH 29.1 pg (25.0-35.0); MCHC 32.2 g/dL (31.0-37.0); MCV 90.4 fL (80.0-100.0); Monocytes # (A) 0.3 k/uL (0-1.0); Monocytes % (A) 5 %; Neutrophils % (A) 72 %; Platelet Count 319 k/uL (150-450); Poikilocytosis Slight; RBC 3.98 m/uL (3.80-5.40); RDW 15.5 % (11.5-15.5); WBC 6.9 k/uL (3.8-10.6)
[2022-03-05 08:20] LABS: African American GFR (CKD) >90 (>60 ml/min/1.73 sqM); Anion Gap 9 mmol/L; Blood Urea Nitrogen 20 mg/dL (7-17); Calcium 9.4 mg/dL (8.4-10.2); Carbon Dioxide 29 mmol/L (22-30); Chloride 99 mmol/L (98-107); Glucose 140 mg/dL (74-99); Non-African American GFR(CKD) 86 (>60 ml/min/1.73 sqM); Potassium 4.3 mmol/L (3.5-5.1); Sodium 137 mmol/L (137-145)
[2022-03-05] MEDS: LISINOPRIL-HCTZ 20-12.5 MG 1 EACH TAB PO SCH (08:35)
[2022-03-05] MEDS: HYDROCORTISONE SUCCINATE 100 MG/2 ML VIAL IV SCH (08:35)
[2022-03-05] MEDS: ATORVASTATIN 40 MG TAB PO SCH (08:35)
[2022-03-05] MEDS: ENOXAPARIN 40 MG/0.4 ML SYRINGE SQ SCH (08:35)
[2022-03-05] MEDS: DOCUSATE 100 MG CAP PO SCH (08:35)
[2022-03-05] MEDS: INSULIN DETEMIR (LEVEMIR) 100 UNIT/ML SYR SQ SCH (08:35)
[2022-03-05] MEDS: PIOGLITAZONE 15 MG TAB PO SCH (08:36)
[2022-03-05] MEDS: PANTOPRAZOLE 40 MG TABLET PO SCH (08:36)
[2022-03-05] MEDS: SPIRONOLACTONE 25 MG TAB PO SCH (08:36)
[2022-03-05 09:45] VITALS: TEMP 97.5
[2022-03-05] MEDS ORDERED: predniSONE 20 MG TAB PO STA (10:21)
[2022-03-05 11:54] LABS: Glucose,Whole Blood 178 mg/dL (75-99)
[2022-03-05 12:37] VITALS: BP 136/87; PULSE 92; RESP 16
--- NOTE | 2022-03-05 19:20 | P.DS ---
Providers Date of admission: 03/03/22 12:57 Expected date of discharge: 03/05/22 Attending physician: Catrachito Krause Primary care physician: Annamaria Lackey [facility] Course: Chief Complaint: Not feeling well This is a pleasant 46-year-old patient who follows with Dr. Shweta Lackey. 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 She developed later in October COVID 19 infection. Did receive antibody transfusion for the same. She has been on a tapering dose of prednisone down to 30 mg as taken this morning. This morning after taking a shower she started shivering. Could not became warm. Finally decided to come to our office. She does small bite to eat and vomited started feeling more cold a slight cough that in getting dizzy. Denied any urinary symptoms. Portable low-grade fever and tachycardia in the ER. Patient took an extra dose of prednisone before coming in. Given 100 mg of IV hydrocortisone in the ER. Patient's fianc at the bedside. March 04: No respiratory symptoms. No urinary symptoms. Feels a bit better than yesterday. Getting IV hydrocortisone. Has been up to the bathroom. Oral intake better. Slight short of breath. CT chest to rule out PE. Ordered. March 05: CT chest negative for PE. Discussed with patient. Most likely mild viral infection. Clinically much better. Changed to oral prednisone. Taper discussed. Patient to follow-up with her security and privacy consultant Dr. moscoso Discussion and discharge planning more than 35 minutes Past medical history: [place]'s disease followed by left adrenal gland removal on 10/28/2021. Currently suppressed right adrenal gland. 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 No smoking or alcohol. Family history: Alcoholism in both the parents. Asthma. Physical examination: VITAL SIGNS: 97.5, 92, 16, 1 3687, 97% room air GENERAL: Sitting up in a chair comfortable, Cushingoid facies EYES: Pupils equal. Conjunctiva normal. HEENT: External appearance of nose and ears normal, oral cavity grossly normal. NECK: JVD not raised; masses not palpable. HEART: First and second heart sounds are normal; no edema. LUNGS: Respiratory rate normal; clear to auscultation. ABDOMEN: Soft, nontender, liver spleen not palpable, no masses palpable. PSYCH: Alert and oriented x3; mood and affect normal. MUSCULOSKELETAL:No Clubbing/cyanosis;muscles-grossly intact INVESTIGATIONS, reviewed in the clinical context: CT chest: Negative for PE March 04: Sodium 136 potassium 4 creatinine 0.8 White count 10.9 hemoglobin 12 platelets 318 sodium 133 potassium 4.5 creatinine 0.98 BUN 31 UA positive for ketones,'s, some epithelial cells. COVID 19/influenza type A type B: All not detected EKG tracing personally reviewed by me-normal sinus rhythm. Rate 127 Chest x-ray film personally reviewed by me-no obvious infiltrate Assessment and plan: -Sepsis, with patient starting to have chills, low-grade fever and elevated white count. Possible viral infection: Improved IV fluids. Currently no obvious source of infection. Patient does have a slight cough. Chest x-rays unremarkable. No antibiotics f -Adrenal insufficiency in a patient had [place]'s disease followed by left adrenal gland removal on 10/28/2021. Right adrenal gland is currently suppressed per patient. Patient has been on 13 mg dose of prednisone. Did receive 100 mg dose of IV hydrocortisone in the ER. Steroid taper discussed with patient. -Some shortness of breath with exertion. PE to rule out -Diabetes mellitus type 2, chronically on insulin Resume Lantus. Accu-Cheks and sliding scale insulin . Trulicity from home . Hyperlipidemia Lipitor 40 mg a day -GERD Omeprazole 20 mg a day Disposition: Home Plan - Discharge Summary Discharge Rx Participant: No New Discharge Prescriptions: Continue Pioglitazone HCl 15 mg PO DAILY Omeprazole 20 mg PO DAILY Lisinopril-Hctz 20-12.5 mg [Zestoretic 20-12.5] 1 tab PO DAILY Atorvastatin Calcium [Lipitor] 40 mg PO DAILY Ergocalciferol [Vitamin D2 (1250 Mcg = 95938 Iu)] 1,250 mcg PO TU Docusate [Colace] 100 mg PO DAILY predniSONE 3 mg PO DAILY Insulin Glargine,Hum.rec.anlog [Lantus Solostar Pen] 20 unit SQ DAILY Spironolactone [Aldactone] 200 mg PO DAILY Dulaglutide [Trulicity] 3 mg SQ SA predniSONE 10 mg PO DAILY Discharge Medication List Atorvastatin Calcium [Lipitor] 40 mg PO DAILY 08/10/20 [History] Lisinopril-Hctz 20-12.5 mg [Zestoretic 20-12.5] 1 tab PO DAILY 08/10/20 [History] Omeprazole 20 mg PO DAILY 08/10/20 [History] Pioglitazone HCl 15 mg PO DAILY 08/10/20 [History] Dulaglutide [Trulicity] 3 mg SQ SA 11/27/21 [History] Ergocalciferol [Vitamin D2 (1250 Mcg = 63388 Iu)] 1,250 mcg PO TU 11/27/21 [History] Insulin Glargine,Hum.rec.anlog [Lantus Solostar Pen] 20 unit SQ DAILY 11/27/21 [History] Spironolactone [Aldactone] 200 mg PO DAILY 11/27/21 [History] Docusate [Colace] 100 mg PO DAILY 01/27/22 [History] predniSONE 10 mg PO DAILY 01/27/22 [History] predniSONE 3 mg PO DAILY 03/03/22 [History] Follow up Appointment(s)/Referral(s): Eben Moscoso MD [REFERRING] - 03/10/22 1:00 pm Annamaira Lackey MD [Primary Care Provider] - 1-2 days (pt stated she will call an make followup appointment) Patient Instructions/Handouts: Tachycardia (GEN) Discharge Disposition: HOME SELF-CARE
[2022-03-08] MEDS ORDERED: PATIENT'S OWN (Dulaglutide [Trulicity] 3 MG/0.5 ML Each) SQ SCH (09:00)
== END 2022-03-05 12:57 | disposition home or self-care (01) ==
LOC: EC 09:37 → 3SCARD 12:57 → INTOOBSV 12:57 → 3SCARD 15:26 → UNDODISIN 03-05 12:57
PROVIDERS: ADMIT Hospitalist; ATTEND Hospitalist
DX: A41.9 Sepsis, unspecified organism (principal); E27.40 Unspecified adrenocortical insufficiency; B34.9 Viral infection, unspecified; E11.9 Type 2 diabetes mellitus without complications; E78.5 Hyperlipidemia, unspecified; R06.02 Shortness of breath; Z20.822 Contact with and (suspected) exposure to COVID-19; I10 Essential (primary) hypertension; J45.909 Unspecified asthma, uncomplicated; K21.9 Gastro-esophageal reflux disease without esophagitis; K59.00 Constipation, unspecified; E24.9 Cushing's syndrome, unspecified; Z79.4 Long term (current) use of insulin; Z79.84 Long term (current) use of oral hypoglycemic drugs; Z79.899 Other long term (current) drug therapy; Z88.8 Allergy status to other drugs, medicaments and biological substances; Z86.16 Personal history of COVID-19; Z98.51 Tubal ligation status; Z90.49 Acquired absence of other specified parts of digestive tract; Z82.5 Family history of asthma and other chronic lower respiratory diseases; Z81.1 Family history of alcohol abuse and dependence
CPT/HCPCS: 99285; 96376 ×3; 96372 ×3; 96361 ×3; 96374; 36415; 93005; 84439; 84481; 80053; 80048 ×2; 82533; 83605; 83735; 84443; 85025 ×2; 81001; 87040; 87086; 87502; 87635; 71046; 71275; G0378 ×3; J1720 ×3; J1650 ×3; J7512; Q9967

== ENCOUNTER 2022-07-10 10:03 | Emergency (ER) | payer OTHER ==
[2022-07-10 10:31] VITALS: RESP 18
[2022-07-10] MEDS ORDERED: SODIUM CHLORIDE 0.9% 500 ML 500 ML IV STA (10:34)
[2022-07-10] MEDS ORDERED: ACETAMINOPHEN TAB 325 MG TAB PO STA (10:35)
--- NOTE | 2022-07-10 10:46 | ED ---
General Adult HPI - General Chief complaint: Chest Pain Stated complaint: Tachycardia,fever Time Seen by Provider: 07/10/22 10:38 Source: patient, RN notes reviewed, old records reviewed Mode of arrival: ambulatory Limitations: no limitations - History of Present Illness Initial comments: This is a well-appearing 47-year-old female that presents ambulatory with complaints of fever and chills, body aches, generalized malaise and occasional cough that started at 6:00 this morning. Patient does have a history of adrenal crisis and states was hospitalized a few months ago. Patient states that her son has been sick with a viral type illness for the past couple of days. She is not sure if she is in adrenal crisis or has a viral illness. She states that she has had some nausea and took Zofran prior to arrival. She also took an additional hydrocortisone 40 mg total this morning for fear of being in adrenal crisis. Patient also has a history of asthma, diabetes and hypertension. -: hour(s) (4) Location: neck Severity scale (1-10): 3 Quality: aching Consistency: constant Improves with: none Worsens with: movement, other (palpation) Associated Symptoms: chest pain, cough, fever/chills, malaise, other (body aches) - Related Data Home Medications Medication Instructions Recorded Confirmed Atorvastatin Calcium [Lipitor] 40 mg PO DAILY 08/10/20 03/03/22 Lisinopril-Hctz 20-12.5 mg 1 tab PO DAILY 08/10/20 03/03/22 [Zestoretic 20-12.5] Omeprazole 20 mg PO DAILY 08/10/20 03/03/22 Pioglitazone HCl 15 mg PO DAILY 08/10/20 03/03/22 Dulaglutide [Trulicity] 3 mg SQ SA 11/27/21 03/03/22 Ergocalciferol [Vitamin D2 (1250 1,250 mcg PO TU 11/27/21 03/03/22 Mcg = 30132 Iu)] Insulin Glargine,Hum.rec.anlog 20 unit SQ DAILY 11/27/21 03/03/22 [Lantus Solostar Pen] Spironolactone [Aldactone] 200 mg PO DAILY 11/27/21 03/03/22 Docusate [Colace] 100 mg PO DAILY 01/27/22 03/03/22 predniSONE 10 mg PO DAILY 01/27/22 03/03/22 predniSONE 3 mg PO DAILY 03/03/22 03/03/22 Allergies Allergy/AdvReac Type Severity Reaction Status Date / Time metoprolol AdvReac Abdominal Verified 07/10/22 10:31 Pain Review of Systems ROS Statement: Those systems with pertinent positive or pertinent negative responses have been documented in the HPI. ROS Other: All systems not noted in ROS Statement are negative. Past Medical History Past Medical History: Asthma, Diabetes Mellitus, Hypertension Additional Past Medical History / Comment(s): cushings History of Any Multi-Drug Resistant Organisms: None Reported Past Surgical History: Breast Surgery, Section, Cholecystectomy, Orthopedic Surgery, Tonsillectomy, Tubal Ligation, Uterine Ablation Additional Past Surgical History / Comment(s): 2 lypomas removed, 2 c sec, 2 wrist surgeries, left kidney adrenal gland removed 10/28/21, adnoids removed. Cyct removal from back Past Anesthesia/Blood Transfusion Reactions: No Reported Reaction Past Psychological History: No Psychological Hx Reported Smoking Status: Never smoker Past Alcohol Use History: None Reported Past Drug Use History: None Reported - Past Family History Mother Additional Family Medical History / Comment(s): ETOH Father Additional Family Medical History / Comment(s): ETOH Brother(s) Additional Family Medical History / Comment(s): DRUG ABUSE Son(s) Family Medical History: Asthma Daughter(s) Family Medical History: Asthma General Exam Limitations: no limitations General appearance: alert, in no apparent distress Head exam: Present: atraumatic Eye exam: Absent: scleral icterus, periorbital swelling ENT exam: Present: mucous membranes moist Neck exam: Present: normal inspection, tenderness, full ROM. Absent: meningismus, lymphadenopathy, thyromegaly Respiratory exam: Present: normal lung sounds bilaterally. Absent: respiratory distress, wheezes, rales, rhonchi, stridor, chest wall tenderness, accessory muscle use Cardiovascular Exam: Present: tachycardia GI/Abdominal exam: Present: soft. Absent: distended, tenderness, guarding, rebound, rigid Extremities exam: Present: normal capillary refill Neurological exam: Present: alert, oriented X3, normal gait Psychiatric exam: Present: normal affect, normal mood Skin exam: Present: warm, dry, normal color. Absent: rash, cyanosis, diaphoretic, petechiae, pallor Course Vital Signs 07/10/22 07/10/22 10:26 12:52 Temperature 101 F H 99.3 F Pulse Rate 138 H 120 H Respiratory 18 18 Rate Blood Pressure 109/74 127/56 O2 Sat by Pulse 97 96 Oximetry EKG Findings - EKG Results: EKG: sinus rhythm (Ventricular rate of 130, AK interval .165, QRS 0.82, QTC 0.348) Medical Decision Making - Medical Decision Making Labs show no evidence of adrenal crisis. She is covid negative, urinalysis negative, labs are unremarkable. Chest X-ray negative for infiltrate. Patient states that she is normally tachycardic with her adrenal insufficiency and regularly monitors it with her watch. Vital signs are stable. She denies any chest pain or difficulty in breathing. With son having similar viral type illness this may be viral illness. She was directed to increase her fluid intake, continue taking her previously prescribed medications and follow up with her primary care doctor this week. She is agreeable to this plan of care. Case discussed with Dr. Poe. - Lab Data Result diagrams: 07/10/22 11:15 07/10/22 11:15 Lab Results 07/10/22 07/10/22 07/10/22 Range/Units 11:15 11:15 11:15 WBC 7.8 (3.8-10.6) k/uL RBC 4.01 (3.80-5.40) m/uL Hgb 11.4 (11.4-16.0) gm/dL Hct 34.4 (34.0-46.0) % MCV 85.8 (80.0-100.0) fL MCH 28.3 (25.0-35.0) pg MCHC 33.0 (31.0-37.0) g/dL RDW 16.5 H (11.5-15.5) % Plt Count 247 (150-450) k/uL MPV 7.3 Neutrophils % 84 % Lymphocytes % 9 % Monocytes % 5 % Eosinophils % 0 % Basophils % 1 % Neutrophils # 6.6 (1.3-7.7) k/uL Lymphocytes # 0.7 L (1.0-4.8) k/uL Monocytes # 0.4 (0-1.0) k/uL Eosinophils # 0.0 (0-0.7) k/uL Basophils # 0.0 (0-0.2) k/uL Poikilocytosis Slight Anisocytosis Slight PT 10.5 (9.0-12.0) sec INR 1.0 (<1.2) APTT 22.2 (22.0-30.0) sec Sodium 131 L (137-145) mmol/L Potassium 4.4 (3.5-5.1) mmol/L Chloride 93 L (98-107) mmol/L Carbon Dioxide 28 (22-30) mmol/L Anion Gap 10 mmol/L BUN 22 H (7-17) mg/dL Creatinine 0.77 (0.52-1.04) mg/dL Est GFR (CKD-EPI)AfAm >90 (>60 ml/min/1.73 sqM) Est GFR (CKD-EPI)NonAf >90 (>60 ml/min/1.73 sqM) Glucose 239 H (74-99) mg/dL Calcium 8.9 (8.4-10.2) mg/dL Magnesium 1.5 L (1.6-2.3) mg/dL Total Bilirubin 0.8 (0.2-1.3) mg/dL AST 19 (14-36) U/L ALT 18 (4-34) U/L Alkaline Phosphatase 93 (38-126) U/L Troponin I (0.000-0.034) ng/mL Total Protein 6.2 L (6.3-8.2) g/dL Albumin 4.0 (3.5-5.0) g/dL Urine Color Urine Appearance (Clear) Urine pH (5.0-8.0) Ur Specific [place] (1.001-1.035) Urine Protein (Negative) Urine Glucose (UA) (Negative) Urine Ketones (Negative) Urine Blood (Negative) Urine Nitrite (Negative) Urine Bilirubin (Negative) Urine Urobilinogen (<2.0) mg/dL Ur Leukocyte Esterase (Negative) Coronavirus (PCR) (Not Detectd) 07/10/22 07/10/22 07/10/22 Range/Units 11:15 11:15 11:15 WBC (3.8-10.6) k/uL RBC (3.80-5.40) m/uL Hgb (11.4-16.0) gm/dL Hct (34.0-46.0) % MCV (80.0-100.0) fL MCH (25.0-35.0) pg MCHC (31.0-37.0) g/dL RDW (11.5-15.5) % Plt Count (150-450) k/uL MPV Neutrophils % % Lymphocytes % % Monocytes % % Eosinophils % % Basophils % % Neutrophils # (1.3-7.7) k/uL Lymphocytes # (1.0-4.8) k/uL Monocytes # (0-1.0) k/uL Eosinophils # (0-0.7) k/uL Basophils # (0-0.2) k/uL Poikilocytosis Anisocytosis PT (9.0-12.0) sec INR (<1.2) APTT (22.0-30.0) sec Sodium (137-145) mmol/L Potassium (3.5-5.1) mmol/L Chloride (98-107) mmol/L Carbon Dioxide (22-30) mmol/L Anion Gap mmol/L BUN (7-17) mg/dL Creatinine (0.52-1.04) mg/dL Est GFR (CKD-EPI)AfAm (>60 ml/min/1.73 sqM) Est GFR (CKD-EPI)NonAf (>60 ml/min/1.73 sqM) Glucose (74-99) mg/dL Calcium (8.4-10.2) mg/dL Magnesium (1.6-2.3) mg/dL Total Bilirubin (0.2-1.3) mg/dL AST (14-36) U/L ALT (4-34) U/L Alkaline Phosphatase (38-126) U/L Troponin I <0.012 (0.000-0.034) ng/mL Total Protein (6.3-8.2) g/dL Albumin (3.5-5.0) g/dL Urine Color Yellow Urine Appearance Clear (Clear) Urine pH 5.5 (5.0-8.0) Ur Specific [place] 1.024 (1.001-1.035) Urine Protein Negative (Negative) Urine Glucose (UA) Trace H (Negative) Urine Ketones Trace H (Negative) Urine Blood Negative (Negative) Urine Nitrite Negative (Negative) Urine Bilirubin Negative (Negative) Urine Urobilinogen <2.0 (<2.0) mg/dL Ur Leukocyte Esterase Negative (Negative) Coronavirus (PCR) Not Detected (Not Detectd) Disposition Clinical Impression: Fever Disposition: HOME SELF-CARE Condition: Good Instructions (If sedation given, give patient instructions): Fever in Adults (ED) Additional Instructions: Iincrease your fluid intake. Continue taking your previously prescribed medications. Follow up with your primary care doctor this week. Is patient prescribed a controlled substance at d/c from ED?: No Referrals: Nicole Lackey SN [Student Nurse] - 1-2 days Time of Disposition: 12:30
--- NOTE | 2022-07-10 11:34 | XR ---
EXAMINATION TYPE: XR chest 2V DATE OF EXAM: 07/10/2022 COMPARISON: Chest x-ray March 03, 2022. CTA chest March 04, 2022 HISTORY: Chest pain. TECHNIQUE: Frontal and lateral views of the chest are obtained. FINDINGS: Lobulated contour to right hemidiaphragm is redemonstrated. There is no suspicious focal ai r space opacity, pleural effusion, or pneumothorax seen. The cardiac silhouette size remains within normal limits. Cholecystectomy clips are redemonstrated. The osseous structures are intact. Overlyi ng EKG leads redemonstrated. IMPRESSION: No acute process. No significant change from most recent prior studies.
[2022-07-10 11:38] LABS: Appearance,Urine Clear (Clear); Bilirubin,Urine Negative (Negative); Blood,Urine Negative (Negative); Color,Urine Yellow; Glucose,Urine (UA) Trace (Negative); Ketones,Urine Trace (Negative); Leukocyte Esterase,Urine Negative (Negative); Nitrite,Urine Negative (Negative); PH, Urine 5.5 (5.0-8.0); Protein,Urine Negative (Negative); Specific Gravity,Urine 1.024 (1.001-1.035); Urobilinogen,Urine <2.0 mg/dL (<2.0)
[2022-07-10 11:40] LABS: Anisocytosis Slight; Basophils % (A) 1 %; Eosinophils % (A) 0 %; HCT 34.4 % (34.0-46.0); HGB 11.4 gm/dL (11.4-16.0); Lymphocytes # (A) 0.7 k/uL (1.0-4.8); Lymphocytes % (A) 9 %; MCH 28.3 pg (25.0-35.0); MCV 85.8 fL (80.0-100.0); Mean Platelet Volume 7.3; Monocytes # (A) 0.4 k/uL (0-1.0); Monocytes % (A) 5 %; Neutrophils # (A) 6.6 k/uL (1.3-7.7); Neutrophils % (A) 84 %; Platelet Count 247 k/uL (150-450); Poikilocytosis Slight; RBC 4.01 m/uL (3.80-5.40); RDW 16.5 % (11.5-15.5); WBC 7.8 k/uL (3.8-10.6)
[2022-07-10 11:46] LABS: Partial Thromboplastin Time 22.2 sec (22.0-30.0); Prothrombin Time 10.5 sec (9.0-12.0)
[2022-07-10 11:53] LABS: ALT 18 U/L (4-34); AST 19 U/L (14-36); African American GFR (CKD) >90 (>60 ml/min/1.73 sqM); Alkaline Phosphatase 93 U/L (38-126); Anion Gap 10 mmol/L; Blood Urea Nitrogen 22 mg/dL (7-17); Calcium 8.9 mg/dL (8.4-10.2); Carbon Dioxide 28 mmol/L (22-30); Chloride 93 mmol/L (98-107); Glucose 239 mg/dL (74-99); Magnesium 1.5 mg/dL (1.6-2.3); Non-African American GFR(CKD) >90 (>60 ml/min/1.73 sqM); Potassium 4.4 mmol/L (3.5-5.1); Sodium 131 mmol/L (137-145); Total Bilirubin 0.8 mg/dL (0.2-1.3); Total Protein 6.2 g/dL (6.3-8.2)
[2022-07-10 12:54] VITALS: BP 127/56; PULSE 120; TEMP 99.3
== END 2022-07-10 12:53 | disposition home or self-care (01) ==
LOC: EC 10:03
DX: R50.9 Fever, unspecified (principal); R00.0 Tachycardia, unspecified; J45.909 Unspecified asthma, uncomplicated; E11.9 Type 2 diabetes mellitus without complications; I10 Essential (primary) hypertension; Z88.8 Allergy status to other drugs, medicaments and biological substances; Z79.4 Long term (current) use of insulin; Z79.899 Other long term (current) drug therapy; Z20.822 Contact with and (suspected) exposure to COVID-19
CPT/HCPCS: 36415; 71046; 80053; 81003; 83735; 84484; 85025; 85610; 85730; 87635; 96360; 99285

== ENCOUNTER 2022-08-22 08:37 | Emergency (ER) | payer OTHER ==
[2022-08-22] MEDS ORDERED: ACETAMINOPHEN TAB 500 MG TAB PO STA (08:51)
[2022-08-22] MEDS ORDERED: IBUPROFEN 600 MG TAB PO STA (08:51)
--- NOTE | 2022-08-22 08:56 | ED ---
Fever HPI - General Chief Complaint: Fever Stated Complaint: Fever Time Seen by Provider: 08/22/22 08:44 Source: patient, RN notes reviewed, old records reviewed Mode of arrival: wheelchair Limitations: no limitations - History of Present Illness Initial Comments: 47-year-old female presents to the emergency room ambulatory with complaints of headache, body aches, fatigue and fever for 3 days. She states that she did take a covid test at home that was negative. She has nausea but no vomiting. 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 States is concerned for adrenal crisis. MD Complaint: fever, malaise -: days(s) (3) Temperature Source: oral Associated Symptoms: myalgias, headache, nasal congestion, sore throat, nausea Treatments Prior to Arrival: other (zofran) - Related Data Home Medications Medication Instructions Recorded Confirmed Atorvastatin Calcium [Lipitor] 40 mg PO DAILY 08/10/20 03/03/22 Lisinopril-Hctz 20-12.5 mg 1 tab PO DAILY 08/10/20 03/03/22 [Zestoretic 20-12.5] Omeprazole 20 mg PO DAILY 08/10/20 03/03/22 Pioglitazone HCl 15 mg PO DAILY 08/10/20 03/03/22 Dulaglutide [Trulicity] 3 mg SQ SA 11/27/21 03/03/22 Ergocalciferol [Vitamin D2 (1250 1,250 mcg PO TU 11/27/21 03/03/22 Mcg = 12401 Iu)] Insulin Glargine,Hum.rec.anlog 20 unit SQ DAILY 11/27/21 03/03/22 [Lantus Solostar Pen] Spironolactone [Aldactone] 200 mg PO DAILY 11/27/21 03/03/22 Docusate [Colace] 100 mg PO DAILY 01/27/22 03/03/22 predniSONE 10 mg PO DAILY 01/27/22 03/03/22 predniSONE 3 mg PO DAILY 03/03/22 03/03/22 Previous Rx's Medication Instructions Recorded Cephalexin [Keflex] 500 mg PO BID 7 Days #14 cap 08/22/22 Allergies Allergy/AdvReac Type Severity Reaction Status Date / Time metoprolol AdvReac Abdominal Verified 08/22/22 08:38 Pain Review of Systems ROS Statement: Those systems with pertinent positive or pertinent negative responses have been documented in the HPI. ROS Other: All systems not noted in ROS Statement are negative. Past Medical History Past Medical History: Asthma, Diabetes Mellitus, Hypertension Additional Past Medical History / Comment(s): cushings History of Any Multi-Drug Resistant Organisms: None Reported Past Surgical History: Breast Surgery, Section, Cholecystectomy, Orthopedic Surgery, Tonsillectomy, Tubal Ligation, Uterine Ablation Additional Past Surgical History / Comment(s): 2 lypomas removed, 2 c sec, 2 wrist surgeries, left kidney adrenal gland removed 10/28/21, adnoids removed. Cyct removal from back Past Anesthesia/Blood Transfusion Reactions: No Reported Reaction Past Psychological History: No Psychological Hx Reported Smoking Status: Never smoker Past Alcohol Use History: None Reported Past Drug Use History: None Reported - Past Family History Mother Additional Family Medical History / Comment(s): ETOH Father Additional Family Medical History / Comment(s): ETOH Brother(s) Additional Family Medical History / Comment(s): DRUG ABUSE Son(s) Family Medical History: Asthma Daughter(s) Family Medical History: Asthma General Exam Limitations: no limitations General appearance: alert, in no apparent distress Head exam: Present: atraumatic Eye exam: Present: conjunctival injection. Absent: scleral icterus, periorbital swelling, periorbital tenderness ENT exam: Present: normal oropharynx, mucous membranes dry Expanded Mouth exam: Present: tongue normal, tongue elevation. Absent: drooling, trismus, muffled voice Throat exam: negative: tonsillar erythema, tonsillar exudate Neck exam: Present: normal inspection, full ROM. Absent: tenderness, meningismus Respiratory exam: Present: normal lung sounds bilaterally. Absent: respiratory distress, wheezes, rales, rhonchi, stridor, chest wall tenderness, accessory muscle use Cardiovascular Exam: Present: tachycardia GI/Abdominal exam: Present: soft, tenderness (RUQ). Absent: distended Back exam: Present: normal inspection, full ROM, tenderness (low back). Absent: CVA tenderness (R), CVA tenderness (L), vertebral tenderness, rash noted Neurological exam: Present: alert, oriented X3, normal gait Psychiatric exam: Present: normal affect, normal mood Skin exam: Present: warm, dry, normal color. Absent: cyanosis, diaphoretic, pallor Course Vital Signs 08/22/22 08/22/22 08/22/22 08:38 10:11 12:18 Temperature 102.7 F H 101.7 F H Pulse Rate 126 H 92 Respiratory 16 18 Rate Blood Pressure 122/81 124/82 O2 Sat by Pulse 97 96 Oximetry Medical Decision Making - Medical Decision Making Urinalysis shows positive nitrites, many bacteria, greater than 182 white blood cells. Labs show no evidence of leukocytosis. Patient states has had several urinary tract infections in the past, last one was approximately 2 months ago. She has never seen a urologist. She was treated for urinary tract infection with 2 g of Rocephin IV in the ER, prescribed Keflex for the next 7 days. Tylenol as needed for any fevers or discomfort. Is discharged home to follow up with primary care doctor next week. Return to the emergency room with any new or concerning symptoms. Case discussed with Dr. Marmolejo - Lab Data Result diagrams: 08/22/22 08:56 08/22/22 08:56 Lab Results 08/22/22 08/22/22 08/22/22 Range/Units 08:56 08:56 08:56 WBC 4.3 (3.8-10.6) k/uL RBC 4.06 (3.80-5.40) m/uL Hgb 11.9 (11.4-16.0) gm/dL Hct 33.4 L (34.0-46.0) % MCV 82.3 (80.0-100.0) fL MCH 29.3 (25.0-35.0) pg MCHC 35.6 (31.0-37.0) g/dL RDW 16.1 H (11.5-15.5) % Plt Count 217 (150-450) k/uL MPV 7.7 Neutrophils % 82 % Lymphocytes % 12 % Monocytes % 4 % Eosinophils % 0 % Basophils % 1 % Neutrophils # 3.6 (1.3-7.7) k/uL Lymphocytes # 0.5 L (1.0-4.8) k/uL Monocytes # 0.2 (0-1.0) k/uL Eosinophils # 0.0 (0-0.7) k/uL Basophils # 0.0 (0-0.2) k/uL Poikilocytosis Slight Anisocytosis Slight Sodium (137-145) mmol/L Potassium (3.5-5.1) mmol/L Chloride (98-107) mmol/L Carbon Dioxide (22-30) mmol/L Anion Gap mmol/L BUN (7-17) mg/dL Creatinine (0.52-1.04) mg/dL Est GFR (CKD-EPI)AfAm (>60 ml/min/1.73 sqM) Est GFR (CKD-EPI)NonAf (>60 ml/min/1.73 sqM) Glucose (74-99) mg/dL Calcium (8.4-10.2) mg/dL Total Bilirubin (0.2-1.3) mg/dL AST (14-36) U/L ALT (4-34) U/L Alkaline Phosphatase (38-126) U/L Total Protein (6.3-8.2) g/dL Albumin (3.5-5.0) g/dL Cortisol ug/dL Urine Color Yellow Urine Appearance Cloudy H (Clear) Urine pH 6.0 (5.0-8.0) Ur Specific [place] 1.021 (1.001-1.035) Urine Protein 1+ H (Negative) Urine Glucose (UA) 3+ H (Negative) Urine Ketones Trace H (Negative) Urine Blood Negative (Negative) Urine Nitrite Positive H (Negative) Urine Bilirubin Negative (Negative) Urine Urobilinogen 2.0 (<2.0) mg/dL Ur Leukocyte Esterase Large H (Negative) Urine RBC 6 H (0-5) /hpf Urine WBC >182 H (0-5) /hpf Urine WBC Clumps Few H (None) /hpf Ur Squamous Epith Cells 5 H (0-4) /hpf Urine Bacteria Many H (None) /hpf Urine Mucus Few H (None) /hpf Coronavirus (PCR) (Not Detectd) Influenza Type A RNA Not Detected (Not Detectd) Influenza Type B (PCR) Not Detected (Not Detectd) 08/22/22 08/22/22 Range/Units 08:56 08:56 WBC (3.8-10.6) k/uL RBC (3.80-5.40) m/uL Hgb (11.4-16.0) gm/dL Hct (34.0-46.0) % MCV (80.0-100.0) fL MCH (25.0-35.0) pg MCHC (31.0-37.0) g/dL RDW (11.5-15.5) % Plt Count (150-450) k/uL MPV Neutrophils % % Lymphocytes % % Monocytes % % Eosinophils % % Basophils % % Neutrophils # (1.3-7.7) k/uL Lymphocytes # (1.0-4.8) k/uL Monocytes # (0-1.0) k/uL Eosinophils # (0-0.7) k/uL Basophils # (0-0.2) k/uL Poikilocytosis Anisocytosis Sodium 132 L (137-145) mmol/L Potassium 4.4 (3.5-5.1) mmol/L Chloride 94 L (98-107) mmol/L Carbon Dioxide 26 (22-30) mmol/L Anion Gap 12 mmol/L BUN 24 H (7-17) mg/dL Creatinine 0.71 (0.52-1.04) mg/dL Est GFR (CKD-EPI)AfAm >90 (>60 ml/min/1.73 sqM) Est GFR (CKD-EPI)NonAf >90 (>60 ml/min/1.73 sqM) Glucose 218 H (74-99) mg/dL Calcium 8.6 (8.4-10.2) mg/dL Total Bilirubin 0.7 (0.2-1.3) mg/dL AST 43 H (14-36) U/L ALT 38 H (4-34) U/L Alkaline Phosphatase 91 (38-126) U/L Total Protein 6.2 L (6.3-8.2) g/dL Albumin 3.8 (3.5-5.0) g/dL Cortisol 30 ug/dL Urine Color Urine Appearance (Clear) Urine pH (5.0-8.0) Ur Specific [place] (1.001-1.035) Urine Protein (Negative) Urine Glucose (UA) (Negative) Urine Ketones (Negative) Urine Blood (Negative) Urine Nitrite (Negative) Urine Bilirubin (Negative) Urine Urobilinogen (<2.0) mg/dL Ur Leukocyte Esterase (Negative) Urine RBC (0-5) /hpf Urine WBC (0-5) /hpf Urine WBC Clumps (None) /hpf Ur Squamous Epith Cells (0-4) /hpf Urine Bacteria (None) /hpf Urine Mucus (None) /hpf Coronavirus (PCR) Not Detected (Not Detectd) Influenza Type A RNA (Not Detectd) Influenza Type B (PCR) (Not Detectd) Disposition Clinical Impression: UTI (urinary tract infection) Disposition: HOME SELF-CARE Condition: Good Instructions (If sedation given, give patient instructions): Urinary Tract Infection in Women (ED) Additional Instructions: Take antibiotics as prescribed for urinary tract infection. Tylenol as needed for any pain or discomfort. Increase your fluid intake and try to urinate every couple of hours. Follow-up with your primary care doctor next week, discussed with your doctor the frequency of your urinary tract infections. Return to the emergency room with any new or concerning symptoms. Prescriptions: Cephalexin [Keflex] 500 mg PO BID 7 Days #14 cap Is patient prescribed a controlled substance at d/c from ED?: No Referrals: Annamaria Lackey MD [Primary Care Provider] - 1-2 days Time of Disposition: 11:34
[2022-08-22 09:31] LABS: Anisocytosis Slight; Basophils % (A) 1 %; Eosinophils % (A) 0 %; HCT 33.4 % (34.0-46.0); HGB 11.9 gm/dL (11.4-16.0); Lymphocytes # (A) 0.5 k/uL (1.0-4.8); Lymphocytes % (A) 12 %; MCH 29.3 pg (25.0-35.0); MCHC 35.6 g/dL (31.0-37.0); MCV 82.3 fL (80.0-100.0); Mean Platelet Volume 7.7; Monocytes # (A) 0.2 k/uL (0-1.0); Monocytes % (A) 4 %; Neutrophils # (A) 3.6 k/uL (1.3-7.7); Neutrophils % (A) 82 %; Platelet Count 217 k/uL (150-450); Poikilocytosis Slight; RBC 4.06 m/uL (3.80-5.40); RDW 16.1 % (11.5-15.5); WBC 4.3 k/uL (3.8-10.6)
[2022-08-22 09:41] LABS: Appearance,Urine Cloudy (Clear); Bacteria,Urine Many /hpf; Bilirubin,Urine Negative (Negative); Blood,Urine Negative (Negative); Color,Urine Yellow; Glucose,Urine (UA) 3+ (Negative); Ketones,Urine Trace (Negative); Leukocyte Esterase,Urine Large (Negative); Mucus,Urine Few /hpf; Nitrite,Urine Positive (Negative); Protein,Urine 1+ (Negative); RBC,Urine 6 /hpf (0-5); Specific Gravity,Urine 1.021 (1.001-1.035); Squamous Epithelial Cell,Urine 5 /hpf (0-4); WBC,Urine >182 /hpf (0-5)
[2022-08-22 09:45] LABS: ALT 38 U/L (4-34); AST 43 U/L (14-36); African American GFR (CKD) >90 (>60 ml/min/1.73 sqM); Albumin 3.8 g/dL (3.5-5.0); Alkaline Phosphatase 91 U/L (38-126); Anion Gap 12 mmol/L; Blood Urea Nitrogen 24 mg/dL (7-17); Calcium 8.6 mg/dL (8.4-10.2); Carbon Dioxide 26 mmol/L (22-30); Chloride 94 mmol/L (98-107); Glucose 218 mg/dL (74-99); Non-African American GFR(CKD) >90 (>60 ml/min/1.73 sqM); Potassium 4.4 mmol/L (3.5-5.1); Sodium 132 mmol/L (137-145); Total Bilirubin 0.7 mg/dL (0.2-1.3); Total Protein 6.2 g/dL (6.3-8.2)
[2022-08-22 10:12] VITALS: TEMP 101.7
[2022-08-22 12:20] VITALS: BP 124/82; PULSE 92; RESP 18
== END 2022-08-22 12:27 | disposition home or self-care (01) ==
LOC: EC 08:37
DX: N39.0 Urinary tract infection, site not specified (principal); R00.0 Tachycardia, unspecified; J45.909 Unspecified asthma, uncomplicated; E11.9 Type 2 diabetes mellitus without complications; I10 Essential (primary) hypertension; Z88.8 Allergy status to other drugs, medicaments and biological substances; Z79.4 Long term (current) use of insulin; Z79.899 Other long term (current) drug therapy; Z20.822 Contact with and (suspected) exposure to COVID-19; Z87.440 Personal history of urinary (tract) infections
CPT/HCPCS: 99284; 96365; 36415; 80053; 82533; 84244; 85025; 81001; 82024; 87086; 87077; 87186; 87502; 87635; J0696

== ENCOUNTER 2022-09-23 08:30 | Emergency (ER) | payer OTHER ==
[2022-09-23 08:36] VITALS: RESP 18
[2022-09-23] MEDS ORDERED: SODIUM CHLORIDE 0.9% 1,000 ML IV STA (08:45)
[2022-09-23] MEDS ORDERED: SODIUM CHLORIDE 0.9% 500 ML 500 ML IV STA (08:45)
[2022-09-23] MEDS ORDERED: HYDROCORTISONE SUCCINATE 100 MG/2 ML VIAL IV STA (08:46)
[2022-09-23] MEDS ORDERED: ACETAMINOPHEN TAB 325 MG TAB PO STA (09:07)
--- NOTE | 2022-09-23 09:07 | ED ---
Abdominal Pain HPI - General Chief Complaint: Abdominal Pain Stated Complaint: fever, stomach & back pain Time Seen by Provider: 09/23/22 08:40 Source: patient, RN notes reviewed Mode of arrival: ambulatory Limitations: no limitations - History of Present Illness Initial Comments: This a 47-year-old female presents emergency Department chief complaint fever, abdominal pain. Patient states started overnight. Patient states she has low back achiness, body aches, fever states T-max was 102. She has not taken any Tylenol or Motrin. 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 Patient did not double her steroids. Patient denies any vomiting slight nausea no dysuria no hematuria denies any sick contacts no shortness of breath no chest pain. - Related Data Home Medications Medication Instructions Recorded Confirmed Atorvastatin Calcium [Lipitor] 40 mg PO DAILY 08/10/20 03/03/22 Lisinopril-Hctz 20-12.5 mg 1 tab PO DAILY 08/10/20 03/03/22 [Zestoretic 20-12.5] Omeprazole 20 mg PO DAILY 08/10/20 03/03/22 Pioglitazone HCl 15 mg PO DAILY 08/10/20 03/03/22 Dulaglutide [Trulicity] 3 mg SQ SA 11/27/21 03/03/22 Ergocalciferol [Vitamin D2 (1250 1,250 mcg PO TU 11/27/21 03/03/22 Mcg = 30386 Iu)] Insulin Glargine,Hum.rec.anlog 20 unit SQ DAILY 11/27/21 03/03/22 [Lantus Solostar Pen] Spironolactone [Aldactone] 200 mg PO DAILY 11/27/21 03/03/22 Docusate [Colace] 100 mg PO DAILY 01/27/22 03/03/22 predniSONE 10 mg PO DAILY 01/27/22 03/03/22 predniSONE 3 mg PO DAILY 03/03/22 03/03/22 Previous Rx's Medication Instructions Recorded Cephalexin [Keflex] 500 mg PO BID 7 Days #14 cap 08/22/22 Cephalexin [Keflex] 500 mg PO Q8HR #21 cap 09/23/22 Allergies Allergy/AdvReac Type Severity Reaction Status Date / Time metoprolol AdvReac Abdominal Verified 09/23/22 08:36 Pain Review of Systems ROS Statement: Those systems with pertinent positive or pertinent negative responses have been documented in the HPI. ROS Other: All systems not noted in ROS Statement are negative. Past Medical History Past Medical History: Asthma, Diabetes Mellitus, Hypertension Additional Past Medical History / Comment(s): cushings History of Any Multi-Drug Resistant Organisms: None Reported Past Surgical History: Breast Surgery, Section, Cholecystectomy, Orthopedic Surgery, Tonsillectomy, Tubal Ligation, Uterine Ablation Additional Past Surgical History / Comment(s): 2 lypomas removed, 2 c sec, 2 wrist surgeries, left kidney adrenal gland removed 10/28/21, adnoids removed. Cyct removal from back, adrenal glands removed Past Anesthesia/Blood Transfusion Reactions: No Reported Reaction Past Psychological History: No Psychological Hx Reported Smoking Status: Never smoker Past Alcohol Use History: None Reported Past Drug Use History: None Reported - Past Family History Mother Additional Family Medical History / Comment(s): ETOH Father Additional Family Medical History / Comment(s): ETOH Brother(s) Additional Family Medical History / Comment(s): DRUG ABUSE Son(s) Family Medical History: Asthma Daughter(s) Family Medical History: Asthma General Exam Limitations: no limitations General appearance: alert, in no apparent distress Head exam: Present: atraumatic, normocephalic, normal inspection Eye exam: Present: normal appearance, PERRL, EOMI. Absent: scleral icterus, conjunctival injection, periorbital swelling ENT exam: Present: normal exam, normal oropharynx, mucous membranes moist Neck exam: Present: normal inspection, full ROM. Absent: tenderness, meningismus, lymphadenopathy Respiratory exam: Present: normal lung sounds bilaterally. Absent: respiratory distress, wheezes, rales, rhonchi, stridor Cardiovascular Exam: Present: normal rhythm, tachycardia, normal heart sounds. Absent: systolic murmur, diastolic murmur, rubs, gallop, clicks GI/Abdominal exam: Present: soft, normal bowel sounds. Absent: distended, tenderness, guarding, rebound, rigid Back exam: Absent: CVA tenderness (R), CVA tenderness (L) Neurological exam: Present: alert Course Vital Signs 09/23/22 08:33 Temperature 98.3 F Pulse Rate 122 H Respiratory 18 Rate Blood Pressure 97/60 O2 Sat by Pulse 95 Oximetry Medical Decision Making - Medical Decision Making 47-year-old presented for abdominal pain flank pain fever chills. Patient has evidence of urinary tract infection. Patient feels improved after IV fluids. Patient discharged on oral antibiotics. She will double of her steroids she'll have close follow-up and return for any worsening change in symptoms. - Lab Data Result diagrams: 09/23/22 09:04 09/23/22 09:04 Lab Results 09/23/22 09/23/22 09/23/22 Range/Units 09:04 09:04 09:04 WBC 13.0 H (3.8-10.6) k/uL RBC 4.37 (3.80-5.40) m/uL Hgb 12.5 (11.4-16.0) gm/dL Hct 36.2 (34.0-46.0) % MCV 82.8 (80.0-100.0) fL MCH 28.6 (25.0-35.0) pg MCHC 34.5 (31.0-37.0) g/dL RDW 17.0 H (11.5-15.5) % Plt Count 271 (150-450) k/uL MPV 7.1 Neutrophils % 83 % Lymphocytes % 11 % Monocytes % 4 % Eosinophils % 1 % Basophils % 0 % Neutrophils # 10.8 H (1.3-7.7) k/uL Lymphocytes # 1.4 (1.0-4.8) k/uL Monocytes # 0.5 (0-1.0) k/uL Eosinophils # 0.1 (0-0.7) k/uL Basophils # 0.0 (0-0.2) k/uL Poikilocytosis Slight Anisocytosis Slight Sodium 131 L (137-145) mmol/L Potassium 4.5 (3.5-5.1) mmol/L Chloride 93 L (98-107) mmol/L Carbon Dioxide 28 (22-30) mmol/L Anion Gap 10 mmol/L BUN 18 H (7-17) mg/dL Creatinine 1.00 (0.52-1.04) mg/dL Est GFR (CKD-EPI)AfAm 78 (>60 ml/min/1.73 sqM) Est GFR (CKD-EPI)NonAf 68 (>60 ml/min/1.73 sqM) Glucose 253 H (74-99) mg/dL Calcium 8.8 (8.4-10.2) mg/dL Total Bilirubin 1.1 (0.2-1.3) mg/dL AST 17 (14-36) U/L ALT 25 (4-34) U/L Alkaline Phosphatase 88 (38-126) U/L Total Protein 6.4 (6.3-8.2) g/dL Albumin 4.1 (3.5-5.0) g/dL Lipase 43 (23-300) U/L Urine Color Yellow Urine Appearance Cloudy H (Clear) Urine pH 5.5 (5.0-8.0) Ur Specific [place] 1.023 (1.001-1.035) Urine Protein 1+ H (Negative) Urine Glucose (UA) Negative (Negative) Urine Ketones 1+ H (Negative) Urine Blood Trace H (Negative) Urine Nitrite Negative (Negative) Urine Bilirubin Negative (Negative) Urine Urobilinogen <2.0 (<2.0) mg/dL Ur Leukocyte Esterase Large H (Negative) Urine RBC 8 H (0-5) /hpf Urine WBC 63 H (0-5) /hpf Ur Squamous Epith Cells 9 H (0-4) /hpf Urine Bacteria Moderate H (None) /hpf Urine Mucus Rare H (None) /hpf Coronavirus (PCR) (Not Detectd) Influenza Type A RNA (Not Detectd) Influenza Type B (PCR) (Not Detectd) 09/23/22 09/23/22 Range/Units 09:04 09:04 WBC (3.8-10.6) k/uL RBC (3.80-5.40) m/uL Hgb (11.4-16.0) gm/dL Hct (34.0-46.0) % MCV (80.0-100.0) fL MCH (25.0-35.0) pg MCHC (31.0-37.0) g/dL RDW (11.5-15.5) % Plt Count (150-450) k/uL MPV Neutrophils % % Lymphocytes % % Monocytes % % Eosinophils % % Basophils % % Neutrophils # (1.3-7.7) k/uL Lymphocytes # (1.0-4.8) k/uL Monocytes # (0-1.0) k/uL Eosinophils # (0-0.7) k/uL Basophils # (0-0.2) k/uL Poikilocytosis Anisocytosis Sodium (137-145) mmol/L Potassium (3.5-5.1) mmol/L Chloride (98-107) mmol/L Carbon Dioxide (22-30) mmol/L Anion Gap mmol/L BUN (7-17) mg/dL Creatinine (0.52-1.04) mg/dL Est GFR (CKD-EPI)AfAm (>60 ml/min/1.73 sqM) Est GFR (CKD-EPI)NonAf (>60 ml/min/1.73 sqM) Glucose (74-99) mg/dL Calcium (8.4-10.2) mg/dL Total Bilirubin (0.2-1.3) mg/dL AST (14-36) U/L ALT (4-34) U/L Alkaline Phosphatase (38-126) U/L Total Protein (6.3-8.2) g/dL Albumin (3.5-5.0) g/dL Lipase (23-300) U/L Urine Color Urine Appearance (Clear) Urine pH (5.0-8.0) Ur Specific [place] (1.001-1.035) Urine Protein (Negative) Urine Glucose (UA) (Negative) Urine Ketones (Negative) Urine Blood (Negative) Urine Nitrite (Negative) Urine Bilirubin (Negative) Urine Urobilinogen (<2.0) mg/dL Ur Leukocyte Esterase (Negative) Urine RBC (0-5) /hpf Urine WBC (0-5) /hpf Ur Squamous Epith Cells (0-4) /hpf Urine Bacteria (None) /hpf Urine Mucus (None) /hpf Coronavirus (PCR) Not Detected (Not Detectd) Influenza Type A RNA Not Detected (Not Detectd) Influenza Type B (PCR) Not Detected (Not Detectd) Disposition Clinical Impression: UTI (urinary tract infection) Disposition: HOME SELF-CARE Condition: Stable Instructions (If sedation given, give patient instructions): Urinary Tract Infection in Women (ED) Additional Instructions: Please return to the Emergency Department if symptoms worsen or any other concer ns. Prescriptions: Cephalexin [Keflex] 500 mg PO Q8HR #21 cap Is patient prescribed a controlled substance at d/c from ED?: No Referrals: Annamaria Lackey MD [Primary Care Provider] - 1-2 days Time of Disposition: 11:16
[2022-09-23 09:24] LABS: Anisocytosis Slight; Basophils % (A) 0 %; Eosinophils # (A) 0.1 k/uL (0-0.7); Eosinophils % (A) 1 %; HCT 36.2 % (34.0-46.0); HGB 12.5 gm/dL (11.4-16.0); Lymphocytes # (A) 1.4 k/uL (1.0-4.8); Lymphocytes % (A) 11 %; MCH 28.6 pg (25.0-35.0); MCHC 34.5 g/dL (31.0-37.0); MCV 82.8 fL (80.0-100.0); Mean Platelet Volume 7.1; Monocytes # (A) 0.5 k/uL (0-1.0); Monocytes % (A) 4 %; Neutrophils # (A) 10.8 k/uL (1.3-7.7); Neutrophils % (A) 83 %; Platelet Count 271 k/uL (150-450); Poikilocytosis Slight; RBC 4.37 m/uL (3.80-5.40)
[2022-09-23 09:35] LABS: Albumin 4.1 g/dL (3.5-5.0); Calcium 8.8 mg/dL (8.4-10.2); Potassium 4.5 mmol/L (3.5-5.1); Total Bilirubin 1.1 mg/dL (0.2-1.3); Total Protein 6.4 g/dL (6.3-8.2)
[2022-09-23 11:00] LABS: Appearance,Urine Cloudy (Clear); Bacteria,Urine Moderate /hpf; Bilirubin,Urine Negative (Negative); Blood,Urine Trace (Negative); Color,Urine Yellow; Glucose,Urine (UA) Negative (Negative); Ketones,Urine 1+ (Negative); Leukocyte Esterase,Urine Large (Negative); Mucus,Urine Rare /hpf; Nitrite,Urine Negative (Negative); PH, Urine 5.5 (5.0-8.0); Protein,Urine 1+ (Negative); RBC,Urine 8 /hpf (0-5); Specific Gravity,Urine 1.023 (1.001-1.035); Squamous Epithelial Cell,Urine 9 /hpf (0-4); Urobilinogen,Urine <2.0 mg/dL (<2.0); WBC,Urine 63 /hpf (0-5)
[2022-09-23 11:35] VITALS: BP 116/76; PULSE 106; TEMP 98.7
== END 2022-09-23 11:33 | disposition home or self-care (01) ==
LOC: EC 08:30
DX: N39.0 Urinary tract infection, site not specified (principal); J45.909 Unspecified asthma, uncomplicated; E11.9 Type 2 diabetes mellitus without complications; I10 Essential (primary) hypertension; Z88.6 Allergy status to analgesic agent; Z90.49 Acquired absence of other specified parts of digestive tract; Z79.899 Other long term (current) drug therapy; Z79.4 Long term (current) use of insulin
CPT/HCPCS: 36415; 80053; 83690; 85025; 81001; 87086; 87502; 87635; 99284; 96374; 96361 ×2; J1720

== ENCOUNTER 2022-10-27 23:00 | Inpatient (IN) | payer OTHER ==
[2022-10-27] MEDS ORDERED: SODIUM CHLORIDE 0.9% 1,000 ML IV STA (23:07)
[2022-10-27] MEDS ORDERED: SODIUM CHLORIDE 0.9% 500 ML 500 ML IV STA (23:07)
[2022-10-27] MEDS ORDERED: ONDANSETRON 4 MG/2 ML VIAL IVP STA (23:07)
[2022-10-27] MEDS ORDERED: HYDROCORTISONE SUCCINATE 100 MG/2 ML VIAL IV STA (23:07)
--- NOTE | 2022-10-27 23:08 | ED ---
Recheck HPI - General Stated Complaint: Adrenal insufficiency Source: RN notes reviewed, old records reviewed Limitations: no limitations - History of Present Illness Initial Comments: This is a 47-year-old female to the emergency department today. Patient resents today for evaluation regards to weakness severe weakness with occasional abdominal pain. He does have concerns that she may be approaching her entering an adrenal crisis she does have history of similar. Patient is sitting that she does not feel well she feels like something is wrong is week nauseous Complaint: abnormal lab -: hour(s) Returns Today for: Called Because of Abnormal Lab/Test, persistent/worsening pain related to initial visit Symptoms Since Prior Visit: worsening pain Context: called for abnormal lab result Associated Symptoms: none Treatments Prior to Arrival: Given Pain Meds on - Related Data Home Medications Medication Instructions Recorded Confirmed Atorvastatin Calcium [Lipitor] 40 mg PO DAILY 08/10/20 10/28/22 Lisinopril-Hctz 20-12.5 mg 1 tab PO DAILY 08/10/20 10/28/22 [Zestoretic 20-12.5] Omeprazole 20 mg PO DAILY 08/10/20 10/28/22 Pioglitazone HCl 15 mg PO DAILY 08/10/20 10/28/22 Dulaglutide [Trulicity] 3 mg SQ SA 11/27/21 10/28/22 Ergocalciferol [Vitamin D2 (1250 1,250 mcg PO TU 11/27/21 10/28/22 Mcg = 75699 Iu)] Acetaminophen with Codeine 1 tab PO DAILY PRN 09/23/22 10/28/22 [Acetaminophen-Cod #3 Tablet] Hydrocortisone 20 mg PO BID 09/23/22 10/28/22 Ibuprofen [Motrin Ib] 200 mg PO DAILY PRN 09/23/22 10/28/22 Multivitamins, Thera [Multivitamin 1 tab PO DAILY 09/23/22 10/28/22 (formulary)] Ondansetron Odt [Zofran ODT] 4 mg PO DAILY PRN 09/23/22 10/28/22 Insulin Lispro Protamin/Lispro 20 units SQ AC-SUPPER 10/28/22 10/28/22 [humaLOG Mix 75-25 Kwikpen] Insulin Lispro Protamin/Lispro 40 unit SQ AC-BRKFST 01/03/23 01/03/23 [humaLOG Mix 75-25 Kwikpen] Previous Rx's Medication Instructions Recorded Spironolactone [Aldactone] 100 mg PO DAILY #0 10/29/22 cefUROXime axetiL [Ceftin] 500 mg PO BID 1 Days #6 tab 10/29/22 Allergies Allergy/AdvReac Type Severity Reaction Status Date / Time metoprolol AdvReac Abdominal Verified 10/27/22 23:03 Pain Review of Systems ROS Statement: Those systems with pertinent positive or pertinent negative responses have been documented in the HPI. ROS Other: All systems not noted in ROS Statement are negative. Past Medical History Past Medical History: Asthma, Diabetes Mellitus, Hypertension Additional Past Medical History / Comment(s): cushings History of Any Multi-Drug Resistant Organisms: None Reported Past Surgical History: Breast Surgery, Section, Cholecystectomy, Orthopedic Surgery, Tonsillectomy, Tubal Ligation, Uterine Ablation Additional Past Surgical History / Comment(s): 2 lypomas removed, 2 c sec, 2 wrist surgeries, left kidney adrenal gland removed 10/28/21, adnoids removed. Cyct removal from back, adrenal glands removed Past Anesthesia/Blood Transfusion Reactions: No Reported Reaction Past Psychological History: No Psychological Hx Reported Smoking Status: Never smoker Past Alcohol Use History: None Reported Past Drug Use History: None Reported - Past Family History Mother Additional Family Medical History / Comment(s): ETOH Father Additional Family Medical History / Comment(s): ETOH Brother(s) Additional Family Medical History / Comment(s): DRUG ABUSE Son(s) Family Medical History: Asthma Daughter(s) Family Medical History: Asthma General Exam General appearance: alert, in no apparent distress, anxious Head exam: Present: atraumatic, normocephalic, normal inspection Eye exam: Present: normal appearance, PERRL, EOMI. Absent: scleral icterus, conjunctival injection, periorbital swelling ENT exam: Present: normal exam, mucous membranes moist Neck exam: Present: normal inspection. Absent: tenderness, meningismus, lymphadenopathy Respiratory exam: Present: normal lung sounds bilaterally. Absent: respiratory distress, wheezes, rales, rhonchi, stridor Cardiovascular Exam: Present: regular rate, normal rhythm, normal heart sounds. Absent: systolic murmur, diastolic murmur, rubs, gallop, clicks GI/Abdominal exam: Present: soft, normal bowel sounds. Absent: distended, tenderness, guarding, rebound, rigid Extremities exam: Present: normal inspection, full ROM, normal capillary refill. Absent: tenderness, pedal edema, joint swelling, calf tenderness Back exam: Present: normal inspection Neurological exam: Present: alert, oriented X3, CN II-XII intact Psychiatric exam: Present: normal affect, normal mood Skin exam: Present: warm, dry, intact, normal color. Absent: rash Course Vital Signs 10/27/22 10/28/22 10/28/22 23:05 00:00 01:00 Temperature 100.4 F H Pulse Rate 139 H 142 H 129 H Pulse Rate [ Pulse Oximetery ] Respiratory 16 16 16 Rate Blood Pressure 172/97 147/77 152/81 Blood Pressure [Left Arm] O2 Sat by Pulse 95 97 98 Oximetry 10/28/22 02:25 Temperature 99.1 F Pulse Rate Pulse Rate [ 121 H Pulse Oximetery ] Respiratory 18 Rate Blood Pressure Blood Pressure 138/88 [Left Arm] O2 Sat by Pulse 95 Oximetry - Reevaluation(s) Reevaluation #1: 10/28/22 06:09 Medical record is reviewed Reevaluation #2: 10/28/22 06:09 patient symptoms are improved here in the ER Reevaluation #3: 10/28/22 06:09 Patient informed of results and questions answered Reevaluation #4: 10/28/22 06:10 Differential Fever: Pneumonia, viral URI, endocarditis, myocarditis, pericarditis, otitis, sinusitis, peritonsillar Abscess, retropharyngeal Abscess, epiglottitis, peritonitis, appendicitis, Delilah cystitis, diverticulitis, hepatitis, colitis, UTI, PID, TOA, pyelonephritis, prostatitis, epididymitis, meningitis, encephalitis, pulmonary embolism, CVA, thyroid storm, pancreatitis, adrenal crisis, cavernous sinus thrombosis, this is not meant to be an all-inclusive list. Reevaluation #5: 10/28/22 06:10 Was pt. sent in by a medical professional or institution? @ -no Did you speak to anyone other than the patient for history? @ -no Did you review nursing and triage notes? @ -agree Were old charts reviewed? @ -no Differential Diagnosis? @ -prior EKG interpreted by me (3pts min.)? @ -[none] X-rays interpreted by me (1pt min.)? @ -[none] CT interpreted by me (1pt min.)? @ -[none] U/S interpreted by me (1pt. min.)? @ -[none] What testing was considered but not performed? (CT, X-rays, U/S, labs)? Why? @ no What meds were considered but not given? Why? @ -[none] Did you discuss the management of the patient with other professionals? @ -no Did you reconcile home meds? @ -[none] Was smoking cessation discussed for >3mins.? @ -[none] Was critical care preformed (if so, how long)? @ -no Were there social determinants of health that impacted care today? How? (Homelessness, low income, unemployed, alcoholism, drug addiction, transp ortation, low edu. Level, literacy, decrease access to med. care, nursing home, rehab)? @ -no Was there de-escalation of care discussed even if they declined? (Discuss DNR or withdrawal of care, Hospice)? @ -no What co-morbidities impacted this encounter? (DM, HTN, Smoking, COPD, CAD, Cancer, CVA, Hep., AIDS, mental health diagnosis, sleep apnea, morbid obesity)? @ -no Was patient admitted / discharged? @ -admit Undiagnosed new problem with uncertain prognosis? @ -[none] Drug Therapy requiring intensive monitoring for toxicity (Heparin, Nitro, Insulin, Cardizem)? @ -[none] Were any procedures done? @ -[none] Diagnosis/symptom? @ -[default] Acute, or Chronic, or Acute on Chronic? @ -[default] Uncomplicated (without systemic symptoms) or Complicated (systemic symptoms)? @ -[default] Side effects of treatment? @ -[none] Exacerbation, Progression, or Severe Exacerbation] @ -[no] Poses a threat to life or bodily function? @ -[no] - Consultations Consultation #1: Spoke with Dr. Krause agrees to admit this patient Medical Decision Making - Medical Decision Making 47 female to be admitted for UTI fever control and rule out pending adrenal crisis - Lab Data Result diagrams: 10/27/22 23:21 10/27/22 23:21 Lab Results 01/02/23 01/02/23 01/02/23 Range/Units 23:21 23:21 23:44 WBC 10.0 (3.8-10.6) k/uL RBC 3.84 (3.80-5.40) m/uL Hgb 11.3 L (11.4-16.0) gm/dL Hct 31.3 L (34.0-46.0) % MCV 81.7 (80.0-100.0) fL MCH 29.5 (25.0-35.0) pg MCHC 36.1 (31.0-37.0) g/dL RDW 16.7 H (11.5-15.5) % Plt Count 241 (150-450) k/uL MPV 7.5 Neutrophils % 91 % Lymphocytes % 6 % Monocytes % 1 % Eosinophils % 1 % Basophils % 0 % Neutrophils # 9.1 H (1.3-7.7) k/uL Lymphocytes # 0.6 L (1.0-4.8) k/uL Monocytes # 0.1 (0-1.0) k/uL Eosinophils # 0.1 (0-0.7) k/uL Basophils # 0.0 (0-0.2) k/uL Poikilocytosis Slight Anisocytosis Slight Sodium 137 (137-145) mmol/L Potassium 4.4 (3.5-5.1) mmol/L Chloride 99 (98-107) mmol/L Carbon Dioxide 28 (22-30) mmol/L Anion Gap 10 mmol/L BUN 20 H (7-17) mg/dL Creatinine 0.66 (0.52-1.04) mg/dL Est GFR (CKD-EPI)AfAm >90 (>60 ml/min/1.73 sqM) Est GFR (CKD-EPI)NonAf >90 (>60 ml/min/1.73 sqM) Glucose 262 H (74-99) mg/dL Calcium 9.0 (8.4-10.2) mg/dL Total Bilirubin 0.8 (0.2-1.3) mg/dL AST 23 (14-36) U/L ALT 26 (4-34) U/L Alkaline Phosphatase 101 (38-126) U/L Total Protein 6.2 L (6.3-8.2) g/dL Albumin 3.9 (3.5-5.0) g/dL Amylase <30 L (30-110) U/L Lipase 52 (23-300) U/L Urine Color Light Yellow Urine Appearance Cloudy H (Clear) Urine pH 5.5 (5.0-8.0) Ur Specific [place] 1.014 (1.001-1.035) Urine Protein Trace H (Negative) Urine Glucose (UA) 3+ H (Negative) Urine Ketones 1+ H (Negative) Urine Blood Small H (Negative) Urine Nitrite Positive H (Negative) Urine Bilirubin Negative (Negative) Urine Urobilinogen <2.0 (<2.0) mg/dL Ur Leukocyte Esterase Large H (Negative) Urine RBC 3 (0-5) /hpf Urine WBC 154 H (0-5) /hpf Urine WBC Clumps Occasional H (None) /hpf Ur Squamous Epith Cells <1 (0-4) /hpf Urine Bacteria Few H (None) /hpf Hyaline Casts 1 (0-2) /lpf Urine Mucus Rare H (None) /hpf Influenza Type A (PCR) (Not Detectd) Influenza Type B (PCR) (Not Detectd) RSV (PCR) (Not Detectd) SARS-CoV-2 (PCR) (Not Detectd) 10/28/22 Range/Units 00:32 WBC (3.8-10.6) k/uL RBC (3.80-5.40) m/uL Hgb (11.4-16.0) gm/dL Hct (34.0-46.0) % MCV (80.0-100.0) fL MCH (25.0-35.0) pg MCHC (31.0-37.0) g/dL RDW (11.5-15.5) % Plt Count (150-450) k/uL MPV Neutrophils % % Lymphocytes % % Monocytes % % Eosinophils % % Basophils % % Neutrophils # (1.3-7.7) k/uL Lymphocytes # (1.0-4.8) k/uL Monocytes # (0-1.0) k/uL Eosinophils # (0-0.7) k/uL Basophils # (0-0.2) k/uL Poikilocytosis Anisocytosis Sodium (137-145) mmol/L Potassium (3.5-5.1) mmol/L Chloride (98-107) mmol/L Carbon Dioxide (22-30) mmol/L Anion Gap mmol/L BUN (7-17) mg/dL Creatinine (0.52-1.04) mg/dL Est GFR (CKD-EPI)AfAm (>60 ml/min/1.73 sqM) Est GFR (CKD-EPI)NonAf (>60 ml/min/1.73 sqM) Glucose (74-99) mg/dL Calcium (8.4-10.2) mg/dL Total Bilirubin (0.2-1.3) mg/dL AST (14-36) U/L ALT (4-34) U/L Alkaline Phosphatase (38-126) U/L Total Protein (6.3-8.2) g/dL Albumin (3.5-5.0) g/dL Amylase (30-110) U/L Lipase (23-300) U/L Urine Color Urine Appearance (Clear) Urine pH (5.0-8.0) Ur Specific [place] (1.001-1.035) Urine Protein (Negative) Urine Glucose (UA) (Negative) Urine Ketones (Negative) Urine Blood (Negative) Urine Nitrite (Negative) Urine Bilirubin (Negative) Urine Urobilinogen (<2.0) mg/dL Ur Leukocyte Esterase (Negative) Urine RBC (0-5) /hpf Urine WBC (0-5) /hpf Urine WBC Clumps (None) /hpf Ur Squamous Epith Cells (0-4) /hpf Urine Bacteria (None) /hpf Hyaline Casts (0-2) /lpf Urine Mucus (None) /hpf Influenza Type A (PCR) Not Detected (Not Detectd) Influenza Type B (PCR) Not Detected (Not Detectd) RSV (PCR) Not Detected (Not Detectd) SARS-CoV-2 (PCR) Not Detected (Not Detectd) Disposition Clinical Impression: Tachycardia, UTI (urinary tract infection), Fever Disposition: ADMITTED IP TO THIS HOSP Is patient prescribed a controlled substance at d/c from ED?: No Time of Disposition: 02:00
[2022-10-27 23:30] LABS: Anisocytosis Slight; Basophils % (A) 0 %; Eosinophils # (A) 0.1 k/uL (0-0.7); Eosinophils % (A) 1 %; HCT 31.3 % (34.0-46.0); HGB 11.3 gm/dL (11.4-16.0); Lymphocytes # (A) 0.6 k/uL (1.0-4.8); Lymphocytes % (A) 6 %; MCH 29.5 pg (25.0-35.0); MCHC 36.1 g/dL (31.0-37.0); MCV 81.7 fL (80.0-100.0); Mean Platelet Volume 7.5; Monocytes # (A) 0.1 k/uL (0-1.0); Monocytes % (A) 1 %; Neutrophils # (A) 9.1 k/uL (1.3-7.7); Neutrophils % (A) 91 %; Platelet Count 241 k/uL (150-450); Poikilocytosis Slight; RBC 3.84 m/uL (3.80-5.40); RDW 16.7 % (11.5-15.5)
[2022-10-27 23:46] LABS: ALT 26 U/L (4-34); AST 23 U/L (14-36); African American GFR (CKD) >90 (>60 ml/min/1.73 sqM); Albumin 3.9 g/dL (3.5-5.0); Alkaline Phosphatase 101 U/L (38-126); Amylase <30 U/L (30-110); Anion Gap 10 mmol/L; Blood Urea Nitrogen 20 mg/dL (7-17); Carbon Dioxide 28 mmol/L (22-30); Chloride 99 mmol/L (98-107); Glucose 262 mg/dL (74-99); Lipase 52 U/L (23-300); Non-African American GFR(CKD) >90 (>60 ml/min/1.73 sqM); Potassium 4.4 mmol/L (3.5-5.1); Sodium 137 mmol/L (137-145); Total Bilirubin 0.8 mg/dL (0.2-1.3); Total Protein 6.2 g/dL (6.3-8.2)
[2022-10-28] MEDS ORDERED: ACETAMINOPHEN TAB 500 MG TAB PO STA (00:10)
[2022-10-28] MEDS ORDERED: IBUPROFEN 800 MG TAB PO STA (00:10)
[2022-10-28 00:15] LABS: Appearance,Urine Cloudy (Clear); Bacteria,Urine Few /hpf; Bilirubin,Urine Negative (Negative); Blood,Urine Small (Negative); Color,Urine Light Yellow; Glucose,Urine (UA) 3+ (Negative); Hyaline Casts,Urine 1 /lpf (0-2); Ketones,Urine 1+ (Negative); Leukocyte Esterase,Urine Large (Negative); Mucus,Urine Rare /hpf; Nitrite,Urine Positive (Negative); PH, Urine 5.5 (5.0-8.0); Protein,Urine Trace (Negative); RBC,Urine 3 /hpf (0-5); Specific Gravity,Urine 1.014 (1.001-1.035); Squamous Epithelial Cell,Urine <1 /hpf (0-4); Urobilinogen,Urine <2.0 mg/dL (<2.0); WBC,Urine 154 /hpf (0-5)
[2022-10-28] MEDS ORDERED: ACETAMINOPHEN TAB 325 MG TAB PO PRN (01:57)
[2022-10-28] MEDS ORDERED: MORPHINE SULFATE 4 MG/ML SYRINGE IV PRN (01:57)
[2022-10-28] MEDS ORDERED: NALOXONE 0.4 MG/ML 1 ML VIAL IV PRN (01:57)
[2022-10-28] MEDS ORDERED: ONDANSETRON 4 MG/2 ML VIAL IVP PRN (01:57)
[2022-10-28] MEDS ORDERED: IBUPROFEN 400 MG TAB PO PRN (01:57)
[2022-10-28] MEDS: SODIUM CHLORIDE 0.9% 1,000 ML IV SCH ×3 (03:06→16:21)
[2022-10-28 07:17] LABS: Glucose,Whole Blood 415 mg/dL (70-110)
[2022-10-28 07:17] LABS: Glucose,Whole Blood 444 mg/dL (70-110)
[2022-10-28] MEDS ORDERED: DEXTROSE 50% SYRINGE 50 ML IVP PRN ×2 (07:20)
[2022-10-28] MEDS: INSULIN ASPART (NovoLOG) 100 UNIT/ML VIAL SQ SCH ×4 (08:10→20:41)
[2022-10-28] MEDS: PANTOPRAZOLE 40 MG/10 ML VIAL IV SCH (08:10)
[2022-10-28] MEDS ORDERED: HYDROCORTISONE 20 MG TAB PO SCH (10:15)
[2022-10-28] MEDS ORDERED: ALPRAZolam 0.25 MG TAB PO PRN (10:42)
[2022-10-28] MEDS ORDERED: CALCIUM CARBONATE 500 MG CHEWABLE PO PRN (10:42)
[2022-10-28] MEDS ORDERED: LACTULOSE 20 GM/30 ML CUP PO PRN (10:42)
[2022-10-28] MEDS ORDERED: MELATONIN 3 MG TABLET PO PRN (10:42)
[2022-10-28] MEDS ORDERED: NON FORMULARY DRUG (Omeprazole [Omeprazole] 20 MG Capsule.Dr) PO SCH (10:45)
[2022-10-28] MEDS ORDERED: Acetaminophen-Codeine 300-30mg TAB PO PRN (10:49)
[2022-10-28] MEDS ORDERED: INSULIN NPH 100 UNIT/ML 10 ML VIAL SQ SCH (11:15)
[2022-10-28] MEDS: LISINOPRIL-HCTZ 20-12.5 MG 1 EACH TAB PO SCH (11:16)
[2022-10-28] MEDS: ENOXAPARIN 40 MG/0.4 ML SYRINGE SQ SCH (11:17)
[2022-10-28] MEDS: PIOGLITAZONE 15 MG TAB PO SCH (11:17)
[2022-10-28] MEDS: HYDROCORTISONE SUCCINATE 100 MG/2 ML VIAL IV SCH ×3 (11:18→23:58)
[2022-10-28] MEDS: MULTIVITAMINS, THERA 1 EACH TAB PO SCH (11:22)
[2022-10-28 11:40] LABS: Glucose,Whole Blood 361 mg/dL (70-110)
[2022-10-28 12:47] LABS: Glucose,Whole Blood 354 mg/dL (70-110)
[2022-10-28 17:23] LABS: Glucose,Whole Blood 319 mg/dL (70-110)
[2022-10-28] MEDS ORDERED: INSULN ASP PRT/INSULIN ASPART 100 UNIT/ML 10 ML VIAL SQ SCH (17:30)
--- NOTE | 2022-10-28 18:18 | P.HPIM ---
History of Present Illness H&P Date: 10/28/22 Chief Complaint: Chills This is a pleasant 47-year-old patient who follows with Dr. Shweta Lackey. 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 She developed later in October COVID 19 infection. Did receive antibody transfusion for the same. Patient currently at home on hydrocortisone 20 mg in the morning and 25 mg at night. 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 Around 8 PM last night started feeling well. Echo 40 mg dose of prednisone. Started having significant chills after that. Took another dose of prednisone. Nobody around her has been sick. Not exposed to anybody with infection. Denies any respiratory symptoms. No urinary symptoms. Patient started feeling a bit delirious. Decided to come in. Given her dose of hydrocortisone 100 mg the ER. Feeling tired this morning. Decreased appetite. Had a temperature 100.4 in the ER. Was also tachycardic. 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 Has a fianc. No smoking or alcohol. Family history: Alcoholism in both parents. Asthma. Physical examination: VITAL SIGNS: 100.4, 139, 16, 147/77, 97% room air upon presentation GENERAL: BMI 44.3, declining bed, awake-tired., Cushingoid facies EYES: Pupils equal. Conjunctiva normal. HEENT: External appearance of nose and ears normal, oral cavity grossly normal. NECK: JVD not raised; masses not palpable. HEART: First and second heart sounds are normal; no edema. LUNGS: Respiratory rate normal; clear to auscultation. ABDOMEN: Soft, nontender, liver spleen not palpable, no masses palpable. PSYCH: Alert and oriented x3; mood and affect normal. MUSCULOSKELETAL:No Clubbing/cyanosis;muscles-grossly intact NEUROLOGICAL: Cranial nerves grossly intact; no facial asymmetry, power and sensation grossly intact. LYMPHATICS: No lymph nodes palpable in the axilla and neck INVESTIGATIONS, reviewed in the clinical context: White count 10 hemoglobin 11.3 platelets 241 potassium 4.4 BUN 20 creatinine 0.66 UA positive for nitrite, ketone 1+ leukoesterase, WBC 154 Assessment and plan: -Sepsis, secondary to UTI IV fluids. -Acute UTI with cystitis IV ceftriaxone -Adrenal insufficiency in a patient had [place]'s disease followed by left adrenal gland removal on 10/28/2021. Right adrenal gland is currently suppressed per patient. Start IV hydrocortisone 100 mg every 8 -Diabetes mellitus type 2, chronically on insulin, uncontrolled with hyperglycemia secondary to steroids Resume home dose of NovoLog Mix 70/30 from this evening. Sliding scale insulin. One-time dose of NPH this morning. . Hyperlipidemia Lipitor 40 mg a day -Morbid obesity BMI 44.3 Weight loss measures. -GERD Omeprazole 20 mg a day -Chronic fluid overload from steroids On Aldactone -Essential hypertension Zestoretic IV ceftriaxone. IV fluids. Insulin. Diabetic diet. IV hydrocortisone. Discussed with patient. Given the complexity and severity of patient's condition expect the patient to be in the hospital at least for 2 overnights Past Medical History Past Medical History: Asthma, Diabetes Mellitus, Hypertension Additional Past Medical History / Comment(s): cushings History of Any Multi-Drug Resistant Organisms: None Reported Past Surgical History: Breast Surgery, Section, Cholecystectomy, Orthopedic Surgery, Tonsillectomy, Tubal Ligation, Uterine Ablation Additional Past Surgical History / Comment(s): 2 lypomas removed, 2 c sec, 2 wrist surgeries, left kidney adrenal gland removed 10/28/21, adnoids removed. Cyct removal from back, adrenal glands removed Past Anesthesia/Blood Transfusion Reactions: No Reported Reaction Past Psychological History: No Psychological Hx Reported Smoking Status: Never smoker Past Alcohol Use History: None Reported Past Drug Use History: None Reported - Past Family History Mother Additional Family Medical History / Comment(s): ETOH Father Additional Family Medical History / Comment(s): ETOH Brother(s) Additional Family Medical History / Comment(s): DRUG ABUSE Son(s) Family Medical History: Asthma Daughter(s) Family Medical History: Asthma Medications and Allergies Home Medications Medication Instructions Recorded Confirmed Type Atorvastatin Calcium [Lipitor] 40 mg PO DAILY 08/10/20 10/28/22 History Lisinopril-Hctz 20-12.5 mg 1 tab PO DAILY 08/10/20 10/28/22 History [Zestoretic 20-12.5] Omeprazole 20 mg PO DAILY 08/10/20 10/28/22 History Pioglitazone HCl 15 mg PO DAILY 08/10/20 10/28/22 History Dulaglutide [Trulicity] 3 mg SQ SA 11/27/21 10/28/22 History Ergocalciferol [Vitamin D2 (1250 1,250 mcg PO TU 11/27/21 10/28/22 History Mcg = 36835 Iu)] Spironolactone [Aldactone] 100 mg PO BID 11/27/21 10/28/22 History Acetaminophen with Codeine 1 tab PO DAILY PRN 09/23/22 10/28/22 History [Acetaminophen-Cod #3 Tablet] Hydrocortisone 5 mg PO HS 09/23/22 10/28/22 History Hydrocortisone 20 mg PO BID 09/23/22 10/28/22 History Ibuprofen [Motrin Ib] 200 mg PO DAILY PRN 09/23/22 10/28/22 History Multivitamins, Thera [Multivitamin 1 tab PO DAILY 09/23/22 10/28/22 History (formulary)] Ondansetron Odt [Zofran ODT] 4 mg PO DAILY PRN 09/23/22 10/28/22 History Insulin Lispro Protamin/Lispro 20 units SQ AC-SUPPER 10/28/22 10/28/22 History [humaLOG Mix 75-25 Kwikpen] Insulin Lispro Protamin/Lispro 40 unit SQ AC-BRKFST 10/28/22 10/28/22 History [humaLOG Mix 75-25 Kwikpen] Allergies Allergy/AdvReac Type Severity Reaction Status Date / Time metoprolol AdvReac Abdominal Verified 10/27/22 23:03 Pain Physical Exam Vitals: Vital Signs Temp Pulse Pulse Resp BP BP Pulse Ox 10/28/22 07:00 98.2 F 98 17 112/75 95 10/28/22 02:25 99.1 F 121 H 18 138/88 95 10/28/22 01:00 129 H 16 152/81 98 10/28/22 00:00 142 H 16 147/77 97 10/27/22 23:05 100.4 F H 139 H 16 172/97 95 Intake and Output 10/27/22 10/28/22 10/28/22 22:59 06:59 14:59 Intake Total 591 Balance 591 Intake: Oral 591 Other: Voiding Method Toilet # Voids 1 Weight 113.398 kg Results CBC & Chem 7: 10/27/22 23:21 10/27/22 23:21 Labs: Abnormal Lab Results - Last 24 Hours (Table) 10/27/22 10/27/22 10/27/22 Range/Units 23:21 23:21 23:44 Hgb 11.3 L (11.4-16.0) gm/dL Hct 31.3 L (34.0-46.0) % RDW 16.7 H (11.5-15.5) % Neutrophils # 9.1 H (1.3-7.7) k/uL Lymphocytes # 0.6 L (1.0-4.8) k/uL BUN 20 H (7-17) mg/dL Glucose 262 H (74-99) mg/dL POC Glucose (mg/dL) (70-110) mg/dL Total Protein 6.2 L (6.3-8.2) g/dL Amylase <30 L (30-110) U/L Urine Appearance Cloudy H (Clear) Urine Protein Trace H (Negative) Urine Glucose (UA) 3+ H (Negative) Urine Ketones 1+ H (Negative) Urine Blood Small H (Negative) Urine Nitrite Positive H (Negative) Ur Leukocyte Esterase Large H (Negative) Urine WBC 154 H (0-5) /hpf Urine WBC Clumps Occasional H (None) /hpf Urine Bacteria Few H (None) /hpf Urine Mucus Rare H (None) /hpf 10/28/22 10/28/22 Range/Units 07:05 07:15 Hgb (11.4-16.0) gm/dL Hct (34.0-46.0) % RDW (11.5-15.5) % Neutrophils # (1.3-7.7) k/uL Lymphocytes # (1.0-4.8) k/uL BUN (7-17) mg/dL Glucose (74-99) mg/dL POC Glucose (mg/dL) 444 H 415 H (70-110) mg/dL Total Protein (6.3-8.2) g/dL Amylase (30-110) U/L Urine Appearance (Clear) Urine Protein (Negative) Urine Glucose (UA) (Negative) Urine Ketones (Negative) Urine Blood (Negative) Urine Nitrite (Negative) Ur Leukocyte Esterase (Negative) Urine WBC (0-5) /hpf Urine WBC Clumps (None) /hpf Urine Bacteria (None) /hpf Urine Mucus (None) /hpf
[2022-10-28 20:19] LABS: Glucose,Whole Blood 332 mg/dL (70-110)
[2022-10-28] MEDS: SPIRONOLACTONE 25 MG TAB PO SCH (20:43)
[2022-10-29] MEDS: SODIUM CHLORIDE 0.9% 1,000 ML IV SCH (00:02)
[2022-10-29 06:00] LABS: Glucose,Whole Blood 278 mg/dL (70-110)
[2022-10-29] MEDS: INSULIN ASPART (NovoLOG) 100 UNIT/ML VIAL SQ SCH (06:37)
[2022-10-29] MEDS ORDERED: INSULN ASP PRT/INSULIN ASPART 100 UNIT/ML 10 ML VIAL SQ SCH (07:30)
[2022-10-29] MEDS: ENOXAPARIN 40 MG/0.4 ML SYRINGE SQ SCH (08:35)
[2022-10-29] MEDS: PANTOPRAZOLE 40 MG/10 ML VIAL IV SCH (08:35)
[2022-10-29] MEDS: SPIRONOLACTONE 25 MG TAB PO SCH (08:36)
[2022-10-29] MEDS: HYDROCORTISONE SUCCINATE 100 MG/2 ML VIAL IV SCH (08:36)
[2022-10-29] MEDS: MULTIVITAMINS, THERA 1 EACH TAB PO SCH (08:36)
[2022-10-29] MEDS: LISINOPRIL-HCTZ 20-12.5 MG 1 EACH TAB PO SCH (08:37)
[2022-10-29] MEDS: PIOGLITAZONE 15 MG TAB PO SCH (08:37)
[2022-10-29 08:48] VITALS: BP 112/74; PULSE 89; RESP 16; TEMP 98.6
[2022-10-29] MEDS ORDERED: ATORVASTATIN 40 MG TAB PO SCH (09:00)
--- NOTE | 2022-10-29 16:19 | P.DS ---
Providers Date of admission: 10/28/22 01:57 Expected date of discharge: 10/29/22 Attending physician: Catrachito Krause Primary care physician: Annamaria Lackey [facility] Course: Chief Complaint: Chills This is a pleasant 47-year-old patient who follows with Dr. Shweta Lackey. Ep Tech is . 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 She developed later in October COVID 19 infection. Did receive antibody transfusion for the same. Patient currently at home on hydrocortisone 20 mg in the morning and 25 mg at night. 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 Around 8 PM last night started feeling well. Echo 40 mg dose of prednisone. Started having significant chills after that. Took another dose of prednisone. Nobody around her has been sick. Not exposed to anybody with infection. Denies any respiratory symptoms. No urinary symptoms. Patient started feeling a bit delirious. Decided to come in. Given her dose of hydrocortisone 100 mg the ER. Feeling tired this morning. Decreased appetite. Had a temperature 100.4 in the ER. Was also tachycardic. 10/29/2022: Patient doing much better. Eating well. Had all her breakfast. Received IV ceftriaxone for UTI. Will DC home on Ceftin. Tapering of hydrocortisone or 5 days to her home dose of hydrocortisone discussed. She actually takes hydrocodone 20 mg twice daily. To follow with Dr. Lewis from endocrinology. 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 Has a fianc. No smoking or alcohol. Family history: Alcoholism in both parents. Asthma. Physical examination: VITAL SIGNS: 98.6, 89, 16, 112/74, 97% room air GENERAL: Sitting up comfortable Cushingoid facies EYES: Pupils equal. Conjunctiva normal. HEENT: External appearance of nose and ears normal, oral cavity grossly normal. NECK: JVD not raised; masses not palpable. HEART: First and second heart sounds are normal; no edema. LUNGS: Respiratory rate normal; clear to auscultation. ABDOMEN: Soft, nontender, liver spleen not palpable, no masses palpable. PSYCH: Alert and oriented x3; mood and affect normal. MUSCULOSKELETAL:No Clubbing/cyanosis;muscles-grossly intact INVESTIGATIONS, reviewed in the clinical context: White count 10 hemoglobin 11.3 platelets 241 potassium 4.4 BUN 20 creatinine 0.66 UA positive for nitrite, ketone 1+ leukoesterase, WBC 154 Assessment and plan: -Sepsis, secondary to UTI IV fluids. -Acute UTI with cystitis IV ceftriaxone. 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 Right adrenal gland is currently suppressed per patient. Start IV hydrocortisone 100 mg every 8. Discharge of hydrocortisone tapering dose -Diabetes mellitus type 2, chronically on insulin, uncontrolled with hyperglycemia secondary to steroids Resume home dose of NovoLog Mix 70/30 . Hyperlipidemia Lipitor 40 mg a day -Morbid obesity BMI 44.3 Weight loss measures. -GERD Omeprazole 20 mg a day -Chronic fluid overload from steroids On Aldactone -Essential hypertension Zestoretic Disposition: Home Plan - Discharge Summary New Discharge Prescriptions: New cefUROXime axetiL [Ceftin] 500 mg PO BID 1 Days #6 tab Continue Pioglitazone HCl 15 mg PO DAILY Omeprazole 20 mg PO DAILY Lisinopril-Hctz 20-12.5 mg [Zestoretic 20-12.5] 1 tab PO DAILY Atorvastatin Calcium [Lipitor] 40 mg PO DAILY Ergocalciferol [Vitamin D2 (1250 Mcg = 04692 Iu)] 1,250 mcg PO TU Acetaminophen with Codeine [Acetaminophen-Cod #3 Tablet] 1 tab PO DAILY PRN PRN Reason: Pain Ibuprofen [Motrin Ib] 200 mg PO DAILY PRN PRN Reason: Pain Or Fever > 100.5 Insulin Lispro Protamin/Lispro [humaLOG Mix 75-25 Kwikpen] 40 unit SQ AC- BRKFST Insulin Lispro Protamin/Lispro [humaLOG Mix 75-25 Kwikpen] 20 units SQ AC- SUPPER Dulaglutide [Trulicity] 3 mg SQ SA Multivitamins, Thera [Multivitamin (formulary)] 1 tab PO DAILY Ondansetron Odt [Zofran ODT] 4 mg PO DAILY PRN PRN Reason: Nausea Changed Spironolactone [Aldactone] 100 mg PO DAILY #0 Discontinued Hydrocortisone 5 mg PO HS No Action Hydrocortisone 20 mg PO BID Discharge Medication List Atorvastatin Calcium [Lipitor] 40 mg PO DAILY 08/10/20 [History] Lisinopril-Hctz 20-12.5 mg [Zestoretic 20-12.5] 1 tab PO DAILY 08/10/20 [History] Omeprazole 20 mg PO DAILY 08/10/20 [History] Pioglitazone HCl 15 mg PO DAILY 08/10/20 [History] Dulaglutide [Trulicity] 3 mg SQ SA 11/27/21 [History] Ergocalciferol [Vitamin D2 (1250 Mcg = 65908 Iu)] 1,250 mcg PO TU 11/27/21 [History] Acetaminophen with Codeine [Acetaminophen-Cod #3 Tablet] 1 tab PO DAILY PRN 09/23/22 [History] Hydrocortisone 20 mg PO BID 09/23/22 [History] Ibuprofen [Motrin Ib] 200 mg PO DAILY PRN 09/23/22 [History] Multivitamins, Thera [Multivitamin (formulary)] 1 tab PO DAILY 09/23/22 [History] Ondansetron Odt [Zofran ODT] 4 mg PO DAILY PRN 09/23/22 [History] Insulin Lispro Protamin/Lispro [humaLOG Mix 75-25 Kwikpen] 20 units SQ AC-SUPPER 10/28/22 [History] Insulin Lispro Protamin/Lispro [humaLOG Mix 75-25 Kwikpen] 40 unit SQ AC-BRKFST 10/28/22 [History] Spironolactone [Aldactone] 100 mg PO DAILY #0 10/29/22 [Rx] cefUROXime axetiL [Ceftin] 500 mg PO BID 1 Days #6 tab 10/29/22 [Rx] Follow up Appointment(s)/Referral(s): Eben Lewis MD [REFERRING] - 1 Week Annamaria Lackey MD [Primary Care Provider] - 1-2 days Patient Instructions/Handouts: Urinary Tract Infection in Women (DC), Urinary Tract Infection in Women (GEN) Discharge Disposition: HOME SELF-CARE
== END 2022-10-29 10:26 | disposition home or self-care (01) | DRG 690 ==
LOC: EC 23:00 → OBSVTOIN 10-28 01:57 → 6NMEDSUR 10-28 01:57
PROVIDERS: ADMIT Hospitalist; ATTEND Hospitalist
DX: N30.90 Cystitis, unspecified without hematuria (principal); E24.9 Cushing's syndrome, unspecified; E27.40 Unspecified adrenocortical insufficiency; Z68.41 Body mass index [BMI] 40.0-44.9, adult; E11.65 Type 2 diabetes mellitus with hyperglycemia; I10 Essential (primary) hypertension; E66.01 Morbid (severe) obesity due to excess calories; T38.0X5A Adverse effect of glucocorticoids and synthetic analogues, initial encounter; E78.5 Hyperlipidemia, unspecified; E87.70 Fluid overload, unspecified; K21.9 Gastro-esophageal reflux disease without esophagitis; R00.0 Tachycardia, unspecified; Z79.899 Other long term (current) drug therapy; Z86.16 Personal history of COVID-19; Z92.22 Personal history of monoclonal drug therapy; Z79.85 Long-term (current) use of injectable non-insulin antidiabetic drugs; Z79.84 Long term (current) use of oral hypoglycemic drugs; Z79.4 Long term (current) use of insulin
CPT/HCPCS: 36415; 80053; 81001; 82150; 83690; 84484; 85025; 87636; 96361; 96365; 96375; 99285

== ENCOUNTER → 2023-09-09 | Outpatient (CLI) | payer OTHER ==
--- NOTE | 2023-09-09 09:22 | XR ---
EXAMINATION TYPE: XR shoulder complete RT DATE OF EXAM: 09/09/2023 COMPARISON: NONE HISTORY: Pain TECHNIQUE: Three views are submitted. FINDINGS: The osseous structures are intact. There is no acute fracture or dislocation. Moderate hypertrophic arthropathy see joint. Large calcification along the head of the humerus and associated with calcific rotator cuff tendinosis. IMPRESSION: 1. Moderate AC joint arthropathy. 2. Correlate for calcific tendinosis rotator cuff. Consider follow-up MRI
== END | disposition home or self-care (01) ==
LOC: RADXRMAIN 08:37
PROVIDERS: ATTEND Family Medicine
DX: M67.813 Other specified disorders of tendon, right shoulder (principal); M19.011 Primary osteoarthritis, right shoulder

== ENCOUNTER 2024-07-07 09:05 | Emergency (ER) | payer BC, OTHER ==
[2024-07-07 09:09] LABS: Glucose,Whole Blood 121 mg/dL (70-110)
[2024-07-07 09:12] VITALS: TEMP 98.1
[2024-07-07] MEDS: SODIUM CHLORIDE 0.9% 1,000 ML IV STA (09:41)
[2024-07-07] MEDS: SODIUM CHLORIDE 0.9% 500 ML 500 ML IV STA (09:42)
[2024-07-07] MEDS: HYDROCORTISONE SUCCINATE 100 MG/2 ML VIAL IV STA (09:42)
[2024-07-07] MEDS: METOCLOPRAMIDE 5 MG/ML 2 ML VIAL IVP STA (09:42)
--- NOTE | 2024-07-07 09:50 | ED ---
Nausea/Vomiting/Diarrhea HPI - General Chief complaint: Nausea/Vomiting/Diarrhea Stated complaint: N/V/D Time Seen by Provider: 07/07/24 09:15 Source: patient, RN notes reviewed Mode of arrival: ambulatory Limitations: no limitations - History of Present Illness Initial comments: 49-year-old female presents emergency department complaining of nausea vomiting diarrhea. She has not felt well for several days. Patient states that she did double up on her steroids for her adrenal insufficiency yesterday. She has not taken today. Patient states she just feels weak she has had no hypoglycemia no hypertension no fevers no URI symptoms. Denies any sick contacts. She has some epigastric discomfort in which she does take medications for GERD she denies any hematemesis or coffee emesis no melena no hematochezia. - Related Data Home Medications Medication Instructions Recorded Confirmed Atorvastatin Calcium [Lipitor] 40 mg PO DAILY 08/10/20 12/19/22 Lisinopril-Hctz 20-12.5 mg 1 tab PO DAILY 08/10/20 12/19/22 [Zestoretic 20-12.5] Omeprazole 20 mg PO DAILY 08/10/20 12/19/22 Pioglitazone HCl 15 mg PO DAILY 08/10/20 12/19/22 Dulaglutide [Trulicity] 3 mg SQ SA 11/27/21 12/19/22 Ergocalciferol [Vitamin D2 (1250 1,250 mcg PO TU 11/27/21 12/19/22 Mcg = 47089 Iu)] Acetaminophen with Codeine 1 tab PO DAILY PRN 09/23/22 12/19/22 [Acetaminophen-Cod #3 Tablet] Ibuprofen [Motrin Ib] 200 mg PO DAILY PRN 09/23/22 12/19/22 Multivitamins, Thera [Multivitamin 1 tab PO DAILY 09/23/22 12/19/22 (formulary)] Ondansetron Odt [Zofran ODT] 4 mg PO DAILY PRN 09/23/22 12/19/22 Insulin Lispro Protamin/Lispro 20 units SQ AC-SUPPER 10/28/22 12/19/22 [humaLOG MIX 75-25 Kwikpen] Insulin Lispro Protamin/Lispro 40 unit SQ AC-BRKFST 10/28/22 12/19/22 [humaLOG MIX 75-25 Kwikpen] Hydrocortisone [Cortef] 5 mg PO BID@0700,1700 12/19/22 12/19/22 Previous Rx's Medication Instructions Recorded Spironolactone [Aldactone] 100 mg PO DAILY #0 10/29/22 Cephalexin [Keflex] 500 mg PO Q12HR 7 Days #14 cap 12/19/22 Ondansetron Odt [Zofran Odt] 4 mg PO Q8HR PRN #10 tab 07/07/24 Allergies Allergy/AdvReac Type Severity Reaction Status Date / Time metoprolol AdvReac Abdominal Verified 12/19/22 18:01 Pain Review of Systems ROS Statement: Those systems with pertinent positive or pertinent negative responses have been documented in the HPI. ROS Other: All systems not noted in ROS Statement are negative. Past Medical History Past Medical History: Asthma, Diabetes Mellitus, Hypertension Additional Past Medical History / Comment(s): cushings adrenal crisis History of Any Multi-Drug Resistant Organisms: None Reported Past Surgical History: Breast Surgery, Section, Cholecystectomy, Orthopedic Surgery, Tonsillectomy, Tubal Ligation, Uterine Ablation Additional Past Surgical History / Comment(s): 2 lypomas removed, 2 c sec, 2 wrist surgeries, left kidney adrenal gland removed 10/28/21, adnoids removed. Cyct removal from back, adrenal glands removed Past Anesthesia/Blood Transfusion Reactions: No Reported Reaction Past Psychological History: No Psychological Hx Reported Smoking Status: Never smoker Past Alcohol Use History: None Reported Past Drug Use History: None Reported - Past Family History Mother Additional Family Medical History / Comment(s): ETOH Father Additional Family Medical History / Comment(s): ETOH Brother(s) Additional Family Medical History / Comment(s): DRUG ABUSE Son(s) Family Medical History: Asthma Daughter(s) Family Medical History: Asthma General Exam Limitations: no limitations General appearance: alert, in no apparent distress Head exam: Present: atraumatic, normocephalic, normal inspection Eye exam: Present: normal appearance, PERRL, EOMI. Absent: scleral icterus, conjunctival injection, periorbital swelling Respiratory exam: Present: normal lung sounds bilaterally. Absent: respiratory distress, wheezes, rales, rhonchi, stridor Cardiovascular Exam: Present: regular rate, normal rhythm, normal heart sounds. Absent: systolic murmur, diastolic murmur, rubs, gallop, clicks GI/Abdominal exam: Present: soft, tenderness, normal bowel sounds. Absent: di stended, guarding, rebound, rigid Neurological exam: Present: alert, oriented X3 Course Vital Signs 07/07/24 09:09 Temperature 98.1 F Pulse Rate 87 Respiratory 16 Rate Blood Pressure 133/75 O2 Sat by Pulse 97 Oximetry Medical Decision Making - Medical Decision Making Was pt. sent in by a medical professional or institution (, PA, MONOGRAM OPERATOR, urgent care, hospital, or fdc...) When possible be specific @ -No Did you speak to anyone other than the patient for history (EMS, parent, family, police, friend...)? What history was obtained from this source @ -No Did you review nursing and triage notes (agree or disagree)? Why? @ -I reviewed and agree with nursing and triage notes Were old charts reviewed (outside hosp., previous admission, EMS record, old EKG, old radiological studies, urgent care reports/EKG's, fdc records)? Report findings @ -No old charts were reviewed Differential Diagnosis (chest pain, altered mental status, abdominal pain women, abdominal pain men, vaginal bleeding, weakness, fever, dyspnea, syncope, headache, dizziness, GI bleed, back pain, seizure, CVA, palpatations, mental health, musculoskeletal)? @ -Differential Abdominal Pain Women: Appendicitis, Cholecystitis, diverticulosis, ischemic bowel, pancreatitis, hepatitis, UTI, gastroenteritis, AAA, incarcerated hernia, bowel obstruction, constipation, inflammatory bowel, hepatitis, peptic ulcer disease, splenic infarction, perforated viscus, vulvitis, ovarian torsion, PID, kidney stone, placenta abruption, this is not meant to be an all-inclusive list EKG interpreted by me (3pts min.). @ -As above X-rays interpreted by me (1pt min.). @ -None done CT interpreted by me (1pt min.). @ -None done U/S interpreted by me (1pt. min.). @ -None done What testing was considered but not performed or refused? (CT, X-rays, U/S, labs)? Why? @ -None What meds were considered but not given or refused? Why? @ -None Did you discuss the management of the patient with other professionals (professionals i.e. , PA, MONOGRAM OPERATOR, lab, RT, psych nurse, social sciences professor, brim stretcher, teacher, chief information officer, home health care case manager)? Give summary @ -No Was smoking cessation discussed for >3mins.? @ -No Was critical care preformed (if so, how long)? @ -No Were there social determinants of health that impacted care today? How? (Homelessness, low income, unemployed, alcoholism, drug addiction, transportation, low edu. Level, literacy, decrease access to med. care, senior living, rehab)? @ -No Was there de-escalation of care discussed even if they declined (Discuss DNR or withdrawal of care, Hospice)? DNR status @ -No What co-morbidities impacted this encounter? (DM, HTN, Smoking, COPD, CAD, Cancer, CVA, ARF, Chemo, Hep., AIDS, mental health diagnosis, sleep apnea, morbid obesity)? @ -[place]'s disease Was patient admitted / discharged? Hospital course, mention meds given and route, prescriptions, significant lab abnormalities, going to OR and other pertinent info. @ -Discharge patient feels great improved with IV fluids and antiemetics laboratory studies unremarkable it is more likely related to a viral GI illness. Patient discharged with antiemetics she will continue doubling her steroids and have close follow-up. Undiagnosed new problem with uncertain prognosis? @ -No Drug Therapy requiring intensive monitoring for toxicity (Heparin, Nitro, Insulin, Cardizem)? @ -No Were any procedures done? @ -No Diagnosis/symptom? @ -Acute nausea vomiting Acute, or Chronic, or Acute on Chronic? @ -Acute Uncomplicated (without systemic symptoms) or Complicated (systemic symptoms)? @ -Uncomplicated Side effects of treatment? @ -No Exacerbation, Progression, or Severe Exacerbation? @ -No Poses a threat to life or bodily function? How? (Chest pain, USA, NM, pneumonia, PE, COPD, DKA, ARF, appy, cholecystitis, CVA, Diverticulitis, Homicidal, Suicidal, threat to staff... and all critical care pts) @ -No - Lab Data Result diagrams: 07/07/24 09:40 07/07/24 09:40 Lab Results 07/07/24 07/07/24 07/07/24 Range/Units 09:08 09:40 09:40 WBC 6.6 (3.8-10.6) k/uL RBC 4.00 (3.80-5.40) m/uL Hgb 11.3 L (11.4-16.0) gm/dL Hct 33.5 L (34.0-46.0) % MCV 83.6 (80.0-100.0) fL MCH 28.2 (25.0-35.0) pg MCHC 33.7 (31.0-37.0) g/dL RDW 15.9 H (11.5-15.5) % Plt Count 281 (150-450) k/uL MPV 6.7 Neutrophils % 76 % Lymphocytes % 17 % Monocytes % 5 % Eosinophils % 1 % Basophils % 0 % Neutrophils # 5.0 (1.3-7.7) k/uL Lymphocytes # 1.1 (1.0-4.8) k/uL Monocytes # 0.3 (0-1.0) k/uL Eosinophils # 0.1 (0-0.7) k/uL Basophils # 0.0 (0-0.2) k/uL Poikilocytosis Slight Sodium 140 (137-145) mmol/L Potassium 3.8 (3.5-5.1) mmol/L Chloride 102 (98-107) mmol/L Carbon Dioxide 30 (22-30) mmol/L Anion Gap 8 mmol/L BUN 15 (7-17) mg/dL Creatinine 0.84 (0.52-1.04) mg/dL Est GFR (CKD-EPI)AfAm >90 (>60 ml/min/1.73 sqM) Est GFR (CKD-EPI)NonAf 82 (>60 ml/min/1.73 sqM) Glucose 115 H (74-99) mg/dL POC Glucose (mg/dL) 121 H (70-110) mg/dL POC Glu Salad Chef ID [place] Calcium 9.6 (8.4-10.2) mg/dL Magnesium 1.8 (1.6-2.3) mg/dL Total Bilirubin 0.6 (0.2-1.3) mg/dL AST 26 (14-36) U/L ALT 27 (4-34) U/L Alkaline Phosphatase 87 (38-126) U/L Total Protein 6.8 (6.3-8.2) g/dL Albumin 4.4 (3.5-5.0) g/dL Lipase 83 (23-300) U/L - EKG Data -: EKG Interpreted by Me EKG Comments: EKG performed at 9: 22 sinus rhythm with a rate of 85 TN 171 QRS 100 QT/QTc 385/[address] elevation depression Disposition Clinical Impression: Gastroenteritis Disposition: HOME SELF-CARE Condition: Stable Instructions (If sedation given, give patient instructions): Acute Nausea and Vomiting (ED) Additional Instructions: Please return to the Emergency Department if symptoms worsen or any other concerns. Prescriptions: Ondansetron Odt [Zofran Odt] 4 mg PO Q8HR PRN #10 tab PRN Reason: Nausea Is patient prescribed a controlled substance at d/c from ED?: No Referrals: Annamaria Lackey MD [Primary Care Provider] - 1-2 days Time of Disposition: 11:25
[2024-07-07] MEDS: FAMOTIDINE 20 MG/2 ML VIAL IV STA (09:55)
[2024-07-07 10:05] LABS: Basophils % (A) 0 %; Eosinophils # (A) 0.1 k/uL (0-0.7); Eosinophils % (A) 1 %; HCT 33.5 % (34.0-46.0); HGB 11.3 gm/dL (11.4-16.0); Lymphocytes # (A) 1.1 k/uL (1.0-4.8); Lymphocytes % (A) 17 %; MCH 28.2 pg (25.0-35.0); MCHC 33.7 g/dL (31.0-37.0); MCV 83.6 fL (80.0-100.0); Mean Platelet Volume 6.7; Monocytes # (A) 0.3 k/uL (0-1.0); Monocytes % (A) 5 %; Neutrophils % (A) 76 %; Platelet Count 281 k/uL (150-450); Poikilocytosis Slight; RDW 15.9 % (11.5-15.5); WBC 6.6 k/uL (3.8-10.6)
[2024-07-07 10:11] LABS: ALT 27 U/L (4-34); AST 26 U/L (14-36); African American GFR (CKD) >90 (>60 ml/min/1.73 sqM); Albumin 4.4 g/dL (3.5-5.0); Alkaline Phosphatase 87 U/L (38-126); Anion Gap 8 mmol/L; Blood Urea Nitrogen 15 mg/dL (7-17); Calcium 9.6 mg/dL (8.4-10.2); Carbon Dioxide 30 mmol/L (22-30); Chloride 102 mmol/L (98-107); Glucose 115 mg/dL (74-99); Lipase 83 U/L (23-300); Magnesium 1.8 mg/dL (1.6-2.3); Non-African American GFR(CKD) 82 (>60 ml/min/1.73 sqM); Potassium 3.8 mmol/L (3.5-5.1); Sodium 140 mmol/L (137-145); Total Bilirubin 0.6 mg/dL (0.2-1.3); Total Protein 6.8 g/dL (6.3-8.2)
[2024-07-07 11:25] LABS: Appearance,Urine Clear (Clear); Bilirubin,Urine Negative (Negative); Blood,Urine Negative (Negative); Color,Urine Colorless; Glucose,Urine (UA) Negative (Negative); Ketones,Urine Negative (Negative); Leukocyte Esterase,Urine Negative (Negative); Nitrite,Urine Negative (Negative); Protein,Urine Negative (Negative); Specific Gravity,Urine 1.011 (1.001-1.035); Urobilinogen,Urine <2.0 mg/dL (<2.0)
[2024-07-07 11:34] VITALS: BP 122/64; PULSE 70; RESP 18
== END 2024-07-07 11:34 | disposition home or self-care (01) ==
LOC: EC 09:05
DX: K52.9 Noninfective gastroenteritis and colitis, unspecified (principal); Z88.8 Allergy status to other drugs, medicaments and biological substances
CPT/HCPCS: 36415; 93005; 80053; 83690; 83735; 85025; 81003; 99284; 96374; 96375 ×2; 96361; J2765; J1720; J3490